=== PATIENT | male | born 1965 | race American Indian/Alaskan Native ===

== ENCOUNTER 2017-05-06 17:59 | Inpatient (IN) | payer MEDICARE, MEDICAID, OTHER ==
[~2017-05-06] VITALS: Ht 180.3 cm; Wt 84.6 kg
[~2017-05-06 17:59] MED LIST: ATOR20TA66 PO; ENAL20TA75 PO; ERGO500014 PO; GABA600T2 PO; HYDR-3973 PO; LANTUS SUBCUT; TRAM50TA2 PO; VANC250C12 PO
[2017-05-06] MEDS ORDERED: nitroGLYCERIN 1gm ointment UD TP ONE (18:40)
[2017-05-06] MEDS ORDERED: furosemide 40mg/4ml inj IV ONE (18:40)
[2017-05-06 19:35] LABS: ALANINE AMINOTRANSFERASE 20 U/L (12-78); ALBUMIN 3.3 G/DL (3.4-5.0); ALBUMIN/GLOBULIN RATIO 0.7 (1.1-1.5); ALKALINE PHOSPHATASE 94 IU/L (46-116); ANION GAP 18 (8-16); ASPARTATE AMINO TRANSFERASE 23 U/L (10-37); BASOPHILS # (AUTO) 0.1 X10'3 (0-0.2); BASOPHILS % (AUTO) 0.4 % (0-1); BLOOD UREA NITROGEN 90 MG/DL (7-18); BUN/CREATININE RATIO 5.4 (5.4-32.0); CALCIUM 8.2 MG/DL (8.5-10.1); CHLORIDE 95 MMOL/L (99-107); EOSINOPHILS # (AUTO) 0.5 X10'3 (0-0.9); EOSINOPHILS % (AUTO) 3.6 % (0-6); GLUCOSE 198 MG/DL (70-104); HEMATOCRIT 33.6 % (42.0-52.0); HEMOGLOBIN 11.6 g/dl (14.0-17.9); LYMPHOCYTES # (AUTO) 1.5 X10'3 (1.1-4.8); LYMPHOCYTES % (AUTO) 11.4 % (21-51); MEAN CORPUSCULAR HEMOGLOBIN 30.7 PG (27.0-31.0); MEAN CORPUSCULAR HGB CONC 34.6 % (33.0-36.5); MEAN CORPUSCULAR VOLUME 88.8 FL (78-98); MEAN PLATELET VOLUME 9.5 FL (7.4-10.4); MONOCYTES # (AUTO) 1.3 X10'3 (0-0.9); MONOCYTES % (AUTO) 9.9 % (2-12); NEUTROPHILS # (AUTO) 10.1 X10'3 (1.8-7.7); NEUTROPHILS % (AUTO) 74.7 % (42-75); PLATELET COUNT 211 X10'3 (140-440); RED BLOOD COUNT 3.78 X10'6 (4.70-6.10); RED CELL DISTRIBUTION WIDTH 14.2 % (11.5-14.5); SODIUM 135 MMOL/L (135-145); TOTAL CARBON DIOXIDE 22.3 MMOL/L (24-32); TOTAL PROTEIN 8.2 G/DL (6.4-8.2); WHITE BLOOD COUNT 13.5 X10'3 (4.5-11.0); eGFR 3 ML/MIN
[2017-05-06 19:43] LABS: POTASSIUM 6.6 MMOL/L (3.5-5.1)
[2017-05-06] MEDS ORDERED: sodium polystyrene sulfonate 15gm/60ml oral suspension PO ONE ×2 (19:45→20:40)
[2017-05-06] MEDS ORDERED: insulin regular, human 10 units/0.1 ml syringe IV ONE (19:45)
[2017-05-06] MEDS ORDERED: calcium chloride 100 MG/1 ML inj IV ONE (19:45)
[2017-05-06] MEDS ORDERED: NORMAL SALINE IV ONE (19:50)
[2017-05-06] MEDS ORDERED: CALCIUM CHLORIDE IV ONE (19:50)
[2017-05-06] MEDS ORDERED: morphine 2 MG/ML inj. syringe IV PRN (20:40)
[2017-05-06] MEDS ORDERED: acetaminophen 325mg tablet PO PRN (20:40)
[2017-05-06] MEDS ORDERED: non-formulary drug (Gabapentin 1 TABLET) PO SCH (21:00)
[2017-05-06] MEDS: gabapentin 300mg capsule PO SCH (21:53)
[2017-05-06] MEDS: insulin glargine (Lantus) pen - multi-dose SQ SCH (22:52)
[2017-05-06 23:45] VITALS: BP 149/77
[2017-05-06 23:48] LABS: ALBUMIN 3.5 G/DL (3.4-5.0); ANION GAP 17 (8-16); BLOOD UREA NITROGEN 93 MG/DL (7-18); BUN/CREATININE RATIO 5.5 (5.4-32.0); CALCIUM 9.5 MG/DL (8.5-10.1); CHLORIDE 95 MMOL/L (99-107); GLUCOSE 136 MG/DL (70-104); SODIUM 137 MMOL/L (135-145); TOTAL CARBON DIOXIDE 24.8 MMOL/L (24-32); eGFR 3 ML/MIN
[2017-05-06 23:55] LABS: POTASSIUM 5.7 MMOL/L (3.5-5.1)
[2017-05-07] VITALS (7 sets, daily range): BP systolic 124–159; BP diastolic 62–80
[2017-05-07] MEDS: HYDROcodone/acetaminophen 5mg/325mg tablet PO PRN (00:52)
[2017-05-07] MEDS ORDERED: traMADol 50MG tablet PO SCH (02:00)
[2017-05-07 05:44] LABS: BASOPHILS # (AUTO) 0.1 X10'3 (0-0.2); BASOPHILS % (AUTO) 0.6 % (0-1); EOSINOPHILS # (AUTO) 0.7 X10'3 (0-0.9); EOSINOPHILS % (AUTO) 4.2 % (0-6); HEMATOCRIT 33.3 % (42.0-52.0); HEMOGLOBIN 11.5 g/dl (14.0-17.9); LYMPHOCYTES # (AUTO) 2.6 X10'3 (1.1-4.8); LYMPHOCYTES % (AUTO) 16.6 % (21-51); MEAN CORPUSCULAR HEMOGLOBIN 30.8 PG (27.0-31.0); MEAN CORPUSCULAR HGB CONC 34.5 % (33.0-36.5); MEAN CORPUSCULAR VOLUME 89.3 FL (78-98); MEAN PLATELET VOLUME 9.4 FL (7.4-10.4); MONOCYTES # (AUTO) 1.4 X10'3 (0-0.9); MONOCYTES % (AUTO) 8.7 % (2-12); NEUTROPHILS # (AUTO) 10.9 X10'3 (1.8-7.7); NEUTROPHILS % (AUTO) 69.9 % (42-75); PLATELET COUNT 229 X10'3 (140-440); RED BLOOD COUNT 3.73 X10'6 (4.70-6.10); WHITE BLOOD COUNT 15.6 X10'3 (4.5-11.0)
[2017-05-07 06:19] LABS: ALANINE AMINOTRANSFERASE 19 U/L (12-78); ALBUMIN/GLOBULIN RATIO 0.6 (1.1-1.5); ALKALINE PHOSPHATASE 88 IU/L (46-116); ANION GAP 19 (8-16); ASPARTATE AMINO TRANSFERASE 19 U/L (10-37); BILIRUBIN,TOTAL 1.1 MG/DL (0.1-1.0); BLOOD UREA NITROGEN 92 MG/DL (7-18); BUN/CREATININE RATIO 5.2 (5.4-32.0); CALCIUM 8.3 MG/DL (8.5-10.1); CHLORIDE 97 MMOL/L (99-107); GLUCOSE 80 MG/DL (70-104); MAGNESIUM 2.7 MG/DL (1.5-2.4); PHOSPHORUS 7.4 MG/DL (2.3-4.5); POTASSIUM 5.7 MMOL/L (3.5-5.1); SODIUM 139 MMOL/L (135-145); TOTAL CARBON DIOXIDE 22.8 MMOL/L (24-32); TOTAL PROTEIN 7.7 G/DL (6.4-8.2); eGFR 3 ML/MIN
[2017-05-07] MEDS: atorvastatin 20mg tablet PO SCH (07:26)
[2017-05-07] MEDS: gabapentin 300mg capsule PO SCH ×3 (07:26→21:21)
[2017-05-07] MEDS: heparin, porcine 5000 units/ml vial SQ SCH ×2 (07:27→19:27)
[2017-05-07] MEDS: HYDROcodone/acetaminophen 10/325mg tab PO SCH ×2 (07:27→19:26)
[2017-05-07] MEDS ORDERED: ENALAPRIL MALEATE PO SCH (08:00)
[2017-05-07] MEDS ORDERED: heparin 1,000unit/ml 10ml vial 10 ML IV ONE (08:36)
[2017-05-07] MEDS ORDERED: epoetin 20,000 units/ml inj IV ONE (08:40)
[2017-05-07] MEDS ORDERED: albumin (human) 25% 100ml IV 100 ML IV PRN (08:40)
[2017-05-07] MEDS ORDERED: mannitol 20% (100GM) 500ml IV soln IV ONE (08:40)
[2017-05-07] MEDS ORDERED: heparin 1,000 units/ml 10ml inj IV ONE (08:40)
[2017-05-07] MEDS: lisinopril 20mg tablet PO SCH (14:43)
[2017-05-07] MEDS: insulin glargine (Lantus) pen - multi-dose SQ SCH (21:34)
[2017-05-08 02:00] VITALS: BP 95/53
[2017-05-08 05:09] LABS: BASOPHILS % (AUTO) 0.2 % (0-1); EOSINOPHILS # (AUTO) 0.5 X10'3 (0-0.9); EOSINOPHILS % (AUTO) 4.1 % (0-6); HEMATOCRIT 32.5 % (42.0-52.0); HEMOGLOBIN 11.1 g/dl (14.0-17.9); LYMPHOCYTES # (AUTO) 1.4 X10'3 (1.1-4.8); LYMPHOCYTES % (AUTO) 10.3 % (21-51); MEAN CORPUSCULAR HEMOGLOBIN 30.6 PG (27.0-31.0); MEAN CORPUSCULAR HGB CONC 34.1 % (33.0-36.5); MEAN CORPUSCULAR VOLUME 89.7 FL (78-98); MEAN PLATELET VOLUME 9.7 FL (7.4-10.4); MONOCYTES # (AUTO) 1.3 X10'3 (0-0.9); MONOCYTES % (AUTO) 9.5 % (2-12); NEUTROPHILS % (AUTO) 75.9 % (42-75); PLATELET COUNT 225 X10'3 (140-440); RED BLOOD COUNT 3.62 X10'6 (4.70-6.10); RED CELL DISTRIBUTION WIDTH 14.7 % (11.5-14.5); WHITE BLOOD COUNT 13.2 X10'3 (4.5-11.0)
[2017-05-08 05:44] LABS: ALANINE AMINOTRANSFERASE 12 U/L (12-78); ALBUMIN 2.6 G/DL (3.4-5.0); ALBUMIN/GLOBULIN RATIO 0.5 (1.1-1.5); ALKALINE PHOSPHATASE 112 IU/L (46-116); ANION GAP 14 (8-16); ASPARTATE AMINO TRANSFERASE 14 U/L (10-37); BILIRUBIN,TOTAL 0.7 MG/DL (0.1-1.0); BLOOD UREA NITROGEN 53 MG/DL (7-18); BUN/CREATININE RATIO 4.4 (5.4-32.0); CALCIUM 8.1 MG/DL (8.5-10.1); CHLORIDE 97 MMOL/L (99-107); GLUCOSE 162 MG/DL (70-104); MAGNESIUM 2.2 MG/DL (1.5-2.4); PHOSPHORUS 6.3 MG/DL (2.3-4.5); POTASSIUM 4.4 MMOL/L (3.5-5.1); SODIUM 138 MMOL/L (135-145); TOTAL CARBON DIOXIDE 27.4 MMOL/L (24-32); TOTAL PROTEIN 7.6 G/DL (6.4-8.2); eGFR 4 ML/MIN
[2017-05-08 06:00] VITALS: BP 130/68
[2017-05-08] MEDS: lisinopril 20mg tablet PO SCH (08:26)
[2017-05-08] MEDS: atorvastatin 20mg tablet PO SCH (08:26)
[2017-05-08] MEDS: heparin, porcine 5000 units/ml vial SQ SCH ×2 (08:26→20:49)
[2017-05-08] MEDS: gabapentin 300mg capsule PO SCH ×3 (08:26→20:47)
[2017-05-08] MEDS: HYDROcodone/acetaminophen 10/325mg tab PO SCH ×2 (08:29→20:49)
[2017-05-08 11:00] VITALS: BP 135/58
[2017-05-08] MEDS ORDERED: ipratropium/albuterol 3ml nebule NEB PRN (14:10)
[2017-05-08 15:00] VITALS: BP 152/65
[2017-05-08] MEDS: traMADol 50MG tablet PO PRN (15:42)
[2017-05-08] MEDS: ipratropium/albuterol 3ml nebule NEB SCH ×2 (15:54→20:45)
[2017-05-08] MEDS: cefTRIAXone 1g/NS 100ml IVPB 100 ML IV SCH (17:35)
[2017-05-08 18:00] VITALS: BP 164/77
[2017-05-08 22:00] VITALS: BP 155/70
[2017-05-08] MEDS: insulin glargine (Lantus) pen - multi-dose SQ SCH (22:10)
[2017-05-08] MEDS: morphine 2 MG/ML inj. syringe IV PRN (22:29)
[2017-05-09 02:00] VITALS: BP 160/81
[2017-05-09] MEDS: ipratropium/albuterol 3ml nebule NEB SCH ×4 (02:38→20:43)
[2017-05-09 06:00] VITALS: BP 152/82
[2017-05-09 06:35] LABS: BASOPHILS % (AUTO) 0.1 % (0-1); EOSINOPHILS # (AUTO) 0.7 X10'3 (0-0.9); EOSINOPHILS % (AUTO) 5.6 % (0-6); HEMATOCRIT 31.5 % (42.0-52.0); HEMOGLOBIN 10.9 g/dl (14.0-17.9); MEAN CORPUSCULAR HEMOGLOBIN 30.9 PG (27.0-31.0); MEAN CORPUSCULAR HGB CONC 34.7 % (33.0-36.5); MEAN CORPUSCULAR VOLUME 89.2 FL (78-98); MEAN PLATELET VOLUME 9.7 FL (7.4-10.4); MONOCYTES % (AUTO) 8.2 % (2-12); NEUTROPHILS # (AUTO) 9.7 X10'3 (1.8-7.7); NEUTROPHILS % (AUTO) 78.1 % (42-75); PLATELET COUNT 242 X10'3 (140-440); RED BLOOD COUNT 3.53 X10'6 (4.70-6.10); RED CELL DISTRIBUTION WIDTH 14.4 % (11.5-14.5); WHITE BLOOD COUNT 12.4 X10'3 (4.5-11.0)
[2017-05-09 07:15] LABS: ALANINE AMINOTRANSFERASE 15 U/L (12-78); ALBUMIN 2.5 G/DL (3.4-5.0); ALBUMIN/GLOBULIN RATIO 0.5 (1.1-1.5); ALKALINE PHOSPHATASE 105 IU/L (46-116); ANION GAP 18 (8-16); ASPARTATE AMINO TRANSFERASE 15 U/L (10-37); BILIRUBIN,TOTAL 0.7 MG/DL (0.1-1.0); BLOOD UREA NITROGEN 69 MG/DL (7-18); BUN/CREATININE RATIO 4.9 (5.4-32.0); CHLORIDE 94 MMOL/L (99-107); GLUCOSE 95 MG/DL (70-104); MAGNESIUM 2.2 MG/DL (1.5-2.4); POTASSIUM 4.1 MMOL/L (3.5-5.1); SODIUM 136 MMOL/L (135-145); TOTAL CARBON DIOXIDE 24.1 MMOL/L (24-32); TOTAL PROTEIN 7.8 G/DL (6.4-8.2); eGFR 4 ML/MIN
[2017-05-09] MEDS: gabapentin 300mg capsule PO SCH ×2 (08:17→13:49)
[2017-05-09] MEDS: atorvastatin 20mg tablet PO SCH (08:17)
[2017-05-09] MEDS: heparin, porcine 5000 units/ml vial SQ SCH ×2 (08:17→19:27)
[2017-05-09] MEDS: HYDROcodone/acetaminophen 10/325mg tab PO SCH ×2 (08:19→19:26)
[2017-05-09] MEDS: cefTRIAXone 1g/NS 100ml IVPB 100 ML IV SCH (08:20)
[2017-05-09 11:00] VITALS: BP 145/63
[2017-05-09 15:00] VITALS: BP 160/78
[2017-05-09] MEDS: morphine 2 MG/ML inj. syringe IV PRN (16:27)
[2017-05-09] MEDS: lactobacillus rhamnosus 10,000 MMU CELLS/CAPSULE PO SCH (16:33)
[2017-05-09 18:00] VITALS: BP 177/79
[2017-05-09] MEDS: insulin glargine (Lantus) pen - multi-dose SQ SCH (21:00)
[2017-05-09] MEDS: racepinephrine 11.25mg/0.5ml nebule IH PRN (21:14)
[2017-05-09 22:00] VITALS: BP 179/86
[2017-05-10] VITALS (13 sets, daily range): BP systolic 116–185; BP diastolic 61–91
[2017-05-10] MEDS: racepinephrine 11.25mg/0.5ml nebule IH PRN (00:52)
[2017-05-10 01:31] LABS: ABG BASE EXCESS -4.4 mmol/L (-2.0-3.0); ABG OXYGEN SATURATION 88.7 % (95-98); ABG PCO2 (T) 41.1 mmHg (35.0-48.0); ABG PO2 (T) 63.1 mmHg (83-108); ALLEN'S TEST Positive; FCOHb 0.3 % (0.5-1.5); FLOW 5 L/min; FMetHb 0.2 % (0.3-1.12); FO2Hb 88.3 % (94-100); PATIENT TEMPERATURE 37.7; TOTAL HEMOGLOBIN 11.4 G/dl (14.0-18.0)
[2017-05-10] MEDS: ipratropium/albuterol 3ml nebule NEB SCH ×4 (03:54→20:37)
[2017-05-10] MEDS: ondansetron/PF 4mg/2ml inj IV PRN ×2 (03:54→09:41)
[2017-05-10 07:08] LABS: BASOPHILS % (AUTO) 0.2 % (0-1); EOSINOPHILS # (AUTO) 0.5 X10'3 (0-0.9); EOSINOPHILS % (AUTO) 4.3 % (0-6); HEMATOCRIT 32.2 % (42.0-52.0); HEMOGLOBIN 11.2 g/dl (14.0-17.9); LYMPHOCYTES % (AUTO) 8.6 % (21-51); MEAN CORPUSCULAR HEMOGLOBIN 30.9 PG (27.0-31.0); MEAN CORPUSCULAR HGB CONC 34.8 % (33.0-36.5); MEAN CORPUSCULAR VOLUME 88.7 FL (78-98); MEAN PLATELET VOLUME 9.2 FL (7.4-10.4); MONOCYTES # (AUTO) 1.1 X10'3 (0-0.9); MONOCYTES % (AUTO) 8.9 % (2-12); NEUTROPHILS # (AUTO) 9.2 X10'3 (1.8-7.7); PLATELET COUNT 281 X10'3 (140-440); RED BLOOD COUNT 3.63 X10'6 (4.70-6.10); WHITE BLOOD COUNT 11.8 X10'3 (4.5-11.0)
[2017-05-10 07:45] LABS: ALANINE AMINOTRANSFERASE 15 U/L (12-78); ALBUMIN 2.4 G/DL (3.4-5.0); ALBUMIN/GLOBULIN RATIO 0.4 (1.1-1.5); ALKALINE PHOSPHATASE 116 IU/L (46-116); ANION GAP 20 (8-16); ASPARTATE AMINO TRANSFERASE 22 U/L (10-37); BILIRUBIN,TOTAL 0.7 MG/DL (0.1-1.0); BLOOD UREA NITROGEN 86 MG/DL (7-18); BUN/CREATININE RATIO 5.5 (5.4-32.0); CALCIUM 8.1 MG/DL (8.5-10.1); CHLORIDE 91 MMOL/L (99-107); GLUCOSE 101 MG/DL (70-104); MAGNESIUM 2.3 MG/DL (1.5-2.4); PHOSPHORUS 8.5 MG/DL (2.3-4.5); SODIUM 135 MMOL/L (135-145); TOTAL CARBON DIOXIDE 23.8 MMOL/L (24-32); TOTAL PROTEIN 8.1 G/DL (6.4-8.2); eGFR 3 ML/MIN
[2017-05-10 07:46] LABS: ABG BASE EXCESS -2.4 mmol/L (-2.0-3.0); ABG HCO3 23.4 mmol/L (22.0-26.0); ABG OXYGEN SATURATION 93.3 % (95-98); ABG PCO2 (T) 44.4 mmHg (35.0-48.0); ABG PH (T) 7.339 (7.350-7.450); ABG PO2 (T) 74.1 mmHg (83-108); ALLEN'S TEST Positive; FMetHb 0.1 % (0.3-1.12); FO2Hb 93.2 % (94-100); MINUTE VOLUME 25 L/min; RESPIRATORY RATE 14 b/min; RESPIRATORY RATE (OBSERVED) 28 b/min; TOTAL HEMOGLOBIN 11.6 G/dl (14.0-18.0)
[2017-05-10 07:49] LABS: POTASSIUM 6.2 MMOL/L (3.5-5.1)
[2017-05-10] MEDS: HYDROcodone/acetaminophen 10/325mg tab PO SCH ×2 (08:00→19:19)
[2017-05-10] MEDS ORDERED: epoetin 20,000 units/ml inj IV ONE (08:00)
[2017-05-10] MEDS ORDERED: gabapentin 100mg capsule PO SCH (08:00)
[2017-05-10] MEDS ORDERED: LIDOcaine 1% (10mg/ml) 2ml vial SQ ONE (08:00)
[2017-05-10] MEDS ORDERED: normal saline 1000ml 250 ML IV PRN (08:00)
[2017-05-10] MEDS: cefTRIAXone 1g/NS 100ml IVPB 100 ML IV SCH (08:00)
[2017-05-10] MEDS: heparin, porcine 5000 units/ml vial SQ SCH ×2 (08:00→19:19)
[2017-05-10] MEDS ORDERED: heparin 1,000 units/ml 10ml inj IV ONE (08:00)
[2017-05-10] MEDS ORDERED: CefTRIAXone/D5W-Rocephin 1gm 50 ML IV ONE (09:27)
[2017-05-10] MEDS: atorvastatin 20mg tablet PO SCH (09:35)
[2017-05-10] MEDS: lactobacillus rhamnosus 10,000 MMU CELLS/CAPSULE PO SCH ×2 (09:36→17:30)
[2017-05-10] MEDS: HYDROcodone/acetaminophen 5mg/325mg tablet PO PRN (15:19)
[2017-05-10] MEDS: insulin glargine (Lantus) pen - multi-dose SQ SCH (21:00)
[2017-05-11] VITALS (9 sets, daily range): BP systolic 112–141; BP diastolic 54–73
[2017-05-11] MEDS: ipratropium/albuterol 3ml nebule NEB SCH ×4 (02:55→20:36)
[2017-05-11 06:18] LABS: BASOPHILS % (AUTO) 0.5 % (0-1); EOSINOPHILS # (AUTO) 0.9 X10'3 (0-0.9); EOSINOPHILS % (AUTO) 9.7 % (0-6); HEMATOCRIT 28.6 % (42.0-52.0); HEMOGLOBIN 10.1 g/dl (14.0-17.9); LYMPHOCYTES # (AUTO) 1.2 X10'3 (1.1-4.8); MEAN CORPUSCULAR HEMOGLOBIN 31.3 PG (27.0-31.0); MEAN CORPUSCULAR HGB CONC 35.3 % (33.0-36.5); MEAN CORPUSCULAR VOLUME 88.5 FL (78-98); MEAN PLATELET VOLUME 8.9 FL (7.4-10.4); MONOCYTES # (AUTO) 0.9 X10'3 (0-0.9); MONOCYTES % (AUTO) 9.8 % (2-12); NEUTROPHILS # (AUTO) 6.3 X10'3 (1.8-7.7); PLATELET COUNT 290 X10'3 (140-440); RED BLOOD COUNT 3.23 X10'6 (4.70-6.10); RED CELL DISTRIBUTION WIDTH 13.9 % (11.5-14.5); WHITE BLOOD COUNT 9.4 X10'3 (4.5-11.0)
[2017-05-11 06:42] LABS: ALBUMIN 2.1 G/DL (3.4-5.0); ALBUMIN/GLOBULIN RATIO 0.4 (1.1-1.5); ALKALINE PHOSPHATASE 111 IU/L (46-116); ANION GAP 14 (8-16); ASPARTATE AMINO TRANSFERASE 17 U/L (10-37); BILIRUBIN,TOTAL 0.5 MG/DL (0.1-1.0); BLOOD UREA NITROGEN 47 MG/DL (7-18); BUN/CREATININE RATIO 5.2 (5.4-32.0); CALCIUM 8.4 MG/DL (8.5-10.1); CHLORIDE 96 MMOL/L (99-107); GLUCOSE 162 MG/DL (70-104); MAGNESIUM 2.3 MG/DL (1.5-2.4); PHOSPHORUS 7.3 MG/DL (2.3-4.5); POTASSIUM 4.7 MMOL/L (3.5-5.1); SODIUM 135 MMOL/L (135-145); TOTAL CARBON DIOXIDE 25.1 MMOL/L (24-32); TOTAL PROTEIN 7.4 G/DL (6.4-8.2); eGFR 6 ML/MIN
[2017-05-11 06:44] LABS: ALANINE AMINOTRANSFERASE < 6 U/L (12-78)
[2017-05-11] MEDS: gabapentin 100mg capsule PO SCH (08:02)
[2017-05-11] MEDS: atorvastatin 20mg tablet PO SCH (08:02)
[2017-05-11] MEDS: lactobacillus rhamnosus 10,000 MMU CELLS/CAPSULE PO SCH ×2 (08:02→17:15)
[2017-05-11] MEDS: HYDROcodone/acetaminophen 10/325mg tab PO SCH ×2 (08:03→20:18)
[2017-05-11] MEDS: CefTRIAXone/D5W-Rocephin 1gm 50 ML IV SCH (08:03)
[2017-05-11] MEDS: heparin, porcine 5000 units/ml vial SQ SCH ×2 (08:03→20:19)
[2017-05-11] MEDS ORDERED: heparin 1,000unit/ml 10ml vial 10 ML IV ONE (08:54)
[2017-05-11] MEDS ORDERED: albumin (human) 25% 100ml IV 100 ML IV PRN (08:55)
[2017-05-11] MEDS ORDERED: heparin 1,000 units/ml 10ml inj IV ONE (08:55)
[2017-05-11] MEDS ORDERED: epoetin 20,000 units/ml inj IV ONE (08:55)
[2017-05-11] MEDS: HYDROcodone/acetaminophen 5mg/325mg tablet PO PRN (13:12)
[2017-05-11] MEDS: traMADol 50MG tablet PO PRN (15:41)
[2017-05-11] MEDS ORDERED: morphine 5 MG/ML injection IV PRN ×2 (16:16)
[2017-05-11] MEDS ORDERED: insulin glargine (Lantus) pen - multi-dose SQ ONE (21:00)
[2017-05-12 02:00] VITALS: BP 166/77
[2017-05-12] MEDS: ipratropium/albuterol 3ml nebule NEB SCH ×4 (02:49→20:06)
[2017-05-12] MEDS: traMADol 50MG tablet PO PRN (04:11)
[2017-05-12 06:00] VITALS: BP 137/72
[2017-05-12] MEDS: CefTRIAXone/D5W-Rocephin 1gm 50 ML IV SCH (07:10)
[2017-05-12] MEDS: heparin, porcine 5000 units/ml vial SQ SCH ×2 (07:12→19:43)
[2017-05-12] MEDS: gabapentin 100mg capsule PO SCH (07:12)
[2017-05-12] MEDS: lactobacillus rhamnosus 10,000 MMU CELLS/CAPSULE PO SCH ×2 (07:12→16:58)
[2017-05-12] MEDS: HYDROcodone/acetaminophen 10/325mg tab PO SCH ×2 (07:12→19:44)
[2017-05-12] MEDS: atorvastatin 20mg tablet PO SCH (07:12)
[2017-05-12] MEDS ORDERED: heparin 1,000unit/ml 10ml vial 10 ML IV ONE (07:13)
[2017-05-12] MEDS ORDERED: heparin 1,000 units/ml 10ml inj IV ONE (07:15)
[2017-05-12] MEDS ORDERED: albumin (human) 25% 100ml IV 100 ML IV PRN (07:15)
[2017-05-12] MEDS ORDERED: epoetin 20,000 units/ml inj IV ONE (07:15)
[2017-05-12] MEDS: insulin glargine (Lantus) pen - multi-dose SQ SCH ×2 (07:20→19:48)
[2017-05-12] MEDS ORDERED: insulin glargine (Lantus) pen - multi-dose SQ ONE (08:00)
[2017-05-12 09:26] LABS: BASOPHILS # (AUTO) 0.1 X10'3 (0-0.2); BASOPHILS % (AUTO) 0.6 % (0-1); EOSINOPHILS # (AUTO) 1.3 X10'3 (0-0.9); HEMATOCRIT 33.6 % (42.0-52.0); HEMOGLOBIN 11.4 g/dl (14.0-17.9); LYMPHOCYTES # (AUTO) 1.9 X10'3 (1.1-4.8); LYMPHOCYTES % (AUTO) 17.5 % (21-51); MEAN CORPUSCULAR HEMOGLOBIN 30.8 PG (27.0-31.0); MEAN CORPUSCULAR VOLUME 90.6 FL (78-98); MEAN PLATELET VOLUME 8.4 FL (7.4-10.4); MONOCYTES % (AUTO) 9.3 % (2-12); NEUTROPHILS # (AUTO) 6.5 X10'3 (1.8-7.7); NEUTROPHILS % (AUTO) 60.6 % (42-75); PLATELET COUNT 314 X10'3 (140-440); RED BLOOD COUNT 3.71 X10'6 (4.70-6.10); RED CELL DISTRIBUTION WIDTH 13.7 % (11.5-14.5); WHITE BLOOD COUNT 10.7 X10'3 (4.5-11.0)
[2017-05-12 11:01] VITALS: BP 155/81
[2017-05-12 15:00] VITALS: BP 120/75
[2017-05-12 18:00] VITALS: BP 140/77
[2017-05-12 22:00] VITALS: BP 135/72
[2017-05-13 02:00] VITALS: BP 149/75
[2017-05-13] MEDS: ipratropium/albuterol 3ml nebule NEB SCH ×4 (02:39→20:41)
[2017-05-13 06:00] VITALS: BP 166/76
[2017-05-13] MEDS: atorvastatin 20mg tablet PO SCH (07:18)
[2017-05-13] MEDS: gabapentin 100mg capsule PO SCH (07:18)
[2017-05-13] MEDS: lactobacillus rhamnosus 10,000 MMU CELLS/CAPSULE PO SCH ×2 (07:18→16:44)
[2017-05-13] MEDS: HYDROcodone/acetaminophen 10/325mg tab PO SCH ×2 (07:20→20:48)
[2017-05-13] MEDS: heparin, porcine 5000 units/ml vial SQ SCH ×2 (07:21→20:44)
[2017-05-13] MEDS: CefTRIAXone/D5W-Rocephin 1gm 50 ML IV SCH (07:22)
[2017-05-13] MEDS: insulin glargine (Lantus) pen - multi-dose SQ SCH ×2 (08:37→20:43)
[2017-05-13 11:00] VITALS: BP 143/78
[2017-05-13 15:00] VITALS: BP 127/64
[2017-05-13] MEDS: HYDROcodone/acetaminophen 5mg/325mg tablet PO PRN (16:40)
[2017-05-13 19:00] VITALS: BP 156/77
[2017-05-13] MEDS: methylPREDNISolone sod succ 125mg/2ml vial IV SCH (20:43)
[2017-05-13 23:00] VITALS: BP 163/74
[2017-05-14] MEDS: HYDROcodone/acetaminophen 5mg/325mg tablet PO PRN ×3 (01:30→17:31)
[2017-05-14] MEDS: methylPREDNISolone sod succ 125mg/2ml vial IV SCH ×4 (01:30→19:56)
[2017-05-14] MEDS: ipratropium/albuterol 3ml nebule NEB SCH ×3 (02:43→15:32)
[2017-05-14 03:00] VITALS: BP 156/70
[2017-05-14 06:00] VITALS: BP 147/67
[2017-05-14] MEDS ORDERED: dextrose ORAL solution 15 GM/59 ML bottle PO PRN ×2 (07:25)
[2017-05-14] MEDS ORDERED: glucagon, human recombinant 1mg kit SUBCUT PRN (07:25)
[2017-05-14] MEDS ORDERED: dextrose 50%-water 50ml dispensing syringe IV PRN ×2 (07:25)
[2017-05-14] MEDS ORDERED: normal saline 1000ml 250 ML IV PRN (07:52)
[2017-05-14] MEDS ORDERED: LIDOcaine 1% (10mg/ml) 2ml vial SQ ONE (07:55)
[2017-05-14] MEDS ORDERED: heparin 1,000 units/ml 10ml inj IV ONE (07:55)
[2017-05-14] MEDS: gabapentin 100mg capsule PO SCH (08:51)
[2017-05-14] MEDS: CefTRIAXone/D5W-Rocephin 1gm 50 ML IV SCH (08:52)
[2017-05-14] MEDS: HYDROcodone/acetaminophen 10/325mg tab PO SCH ×2 (08:52→19:54)
[2017-05-14] MEDS: heparin, porcine 5000 units/ml vial SQ SCH ×2 (08:53→19:53)
[2017-05-14] MEDS: lactobacillus rhamnosus 10,000 MMU CELLS/CAPSULE PO SCH ×2 (08:53→17:30)
[2017-05-14] MEDS: atorvastatin 20mg tablet PO SCH (08:53)
[2017-05-14] MEDS: insulin glargine (Lantus) pen - multi-dose SQ SCH ×2 (09:13→19:56)
[2017-05-14] MEDS: insulin Lispro (HumaLOG) vial - multi-dose SQ SCH ×3 (09:16→18:06)
[2017-05-14 11:00] VITALS: BP 140/72
[2017-05-14 15:00] VITALS: BP 142/72
[2017-05-14] MEDS ORDERED: FOLI1TAB16 PO (15:14)
[2017-05-14] MEDS ORDERED: VIT1TABL50 PO (15:14)
== END 2017-05-14 20:13 | disposition home or self-care (01) | DRG 189 ==
LOC: ER 18:00 → ED HOLD 20:37 → EDBEDREQ 22:56 → PCU 3S 23:45
PROVIDERS: ADMIT Internal Medicine Critical Care Medicine; ATTEND Internal Medicine Critical Care Medicine
PROC: 5A1D70Z Performance of Urinary Filtration, Intermittent, Less than 6 Hours Per Day (ICD-10-PCS; 2017-05-07)
PROC: 5A09457 Assistance with Respiratory Ventilation, 24-96 Consecutive Hours, Continuous Positive Airway Pressure (ICD-10-PCS; principal; 2017-05-10)
PROC: 5A1D70Z Performance of Urinary Filtration, Intermittent, Less than 6 Hours Per Day (ICD-10-PCS; 2017-05-10)
PROC: 5A1D70Z Performance of Urinary Filtration, Intermittent, Less than 6 Hours Per Day (ICD-10-PCS; 2017-05-11)
PROC: 5A1D70Z Performance of Urinary Filtration, Intermittent, Less than 6 Hours Per Day (ICD-10-PCS; 2017-05-12)
PROC: 5A1D70Z Performance of Urinary Filtration, Intermittent, Less than 6 Hours Per Day (ICD-10-PCS; 2017-05-14)
DX: J81.0 Acute pulmonary edema (principal); J96.20 Acute and chronic respiratory failure, unspecified whether with hypoxia or hypercapnia; E11.22 Type 2 diabetes mellitus with diabetic chronic kidney disease; N18.6 End stage renal disease; I12.0 Hypertensive chronic kidney disease with stage 5 chronic kidney disease or end stage renal disease; E87.70 Fluid overload, unspecified; R59.1 Generalized enlarged lymph nodes; R91.8 Other nonspecific abnormal finding of lung field; E87.5 Hyperkalemia; Z60.2 Problems related to living alone; Z79.899 Other long term (current) drug therapy; Z99.2 Dependence on renal dialysis; Z99.81 Dependence on supplemental oxygen; Z91.15 Patient's noncompliance with renal dialysis; Z83.3 Family history of diabetes mellitus
CPT/HCPCS: 36415; 36600; 71045; 71250; 80048; 80053; 82803; 82948; 83036; 83605; 83735; 84100; 85018; 85025; 87070; 93005; 94640; 94660; 94760; 96374; 96375; 97116; 97161; 97530; 99291; A6402; G0257; J0696; J0885; J1644; J1815; J1940; J2270; J2405; J2930; J7030; J7040

== ENCOUNTER 2017-07-28 17:40 | Emergency (ER) | payer MEDICARE, MEDICAID, OTHER ==
[~2017-07-28] VITALS: Ht 167.6 cm; Wt 89.0 kg
[~2017-07-28 17:40] MED LIST changes: -ERGO500014 PO; +FOLI1TAB16 PO; -VANC250C12 PO; +VIT1TABL50 PO
[2017-07-28 18:52] LABS: ALANINE AMINOTRANSFERASE 17 U/L (12-78); ALBUMIN 3.5 G/DL (3.4-5.0); ALBUMIN/GLOBULIN RATIO 0.7 (1.1-1.5); ALKALINE PHOSPHATASE 112 IU/L (46-116); ANION GAP 10 (8-16); ASPARTATE AMINO TRANSFERASE 18 U/L (10-37); BILIRUBIN,TOTAL 0.5 MG/DL (0.1-1.0); BLOOD UREA NITROGEN 25 MG/DL (7-18); BUN/CREATININE RATIO 4.3 (5.4-32.0); CALCIUM 8.6 MG/DL (8.5-10.1); CHLORIDE 99 MMOL/L (99-107); CREATININE 5.81 MG/DL (0.60-1.10); GLUCOSE 259 MG/DL (70-104); SODIUM 139 MMOL/L (135-145); TOTAL CARBON DIOXIDE 29.6 MMOL/L (24-32); TOTAL PROTEIN 8.5 G/DL (6.4-8.2); eGFR 10 ML/MIN
[2017-07-28 18:54] LABS: POTASSIUM 4.2 MMOL/L (3.5-5.1)
[2017-07-28 19:29] LABS: BASOPHILS # (AUTO) 0.1 X10'3 (0-0.2); BASOPHILS % (AUTO) 0.6 % (0-1); EOSINOPHILS # (AUTO) 1.6 X10'3 (0-0.9); EOSINOPHILS % (AUTO) 12.2 % (0-6); HEMATOCRIT 36.5 % (42.0-52.0); HEMOGLOBIN 12.2 g/dl (14.0-17.9); LYMPHOCYTES % (AUTO) 15.2 % (21-51); MEAN CORPUSCULAR HEMOGLOBIN 29.4 PG (27.0-31.0); MEAN CORPUSCULAR HGB CONC 33.6 % (33.0-36.5); MEAN CORPUSCULAR VOLUME 87.7 FL (78-98); MEAN PLATELET VOLUME 8.9 FL (7.4-10.4); MONOCYTES # (AUTO) 0.8 X10'3 (0-0.9); MONOCYTES % (AUTO) 5.8 % (2-12); NEUTROPHILS # (AUTO) 8.7 X10'3 (1.8-7.7); NEUTROPHILS % (AUTO) 66.2 % (42-75); PLATELET COUNT 276 X10'3 (140-440); RED BLOOD COUNT 4.16 X10'6 (4.70-6.10); RED CELL DISTRIBUTION WIDTH 15.7 % (11.5-14.5); WHITE BLOOD COUNT 13.2 X10'3 (4.5-11.0)
[2017-07-28 19:38] LABS: PARTIAL THROMBOPLASTIN TIME 27 SECONDS (22-32); PROTHROMBIN TIME 10.7 SECONDS (9.0-12.0)
[2017-07-28 19:43] VITALS: BP 146/76
== END 2017-07-28 22:48 | disposition left against medical advice (07) ==
LOC: ER 17:41
DX: R06.02 Shortness of breath (principal); Z53.21 Procedure and treatment not carried out due to patient leaving prior to being seen by health care provider
CPT/HCPCS: 36415; 71045; 80053; 84484; 85025; 85610; 85730; 93005

== ENCOUNTER 2017-11-22 20:15 | Emergency (ER) | payer MEDICARE, MEDICAID, OTHER ==
[~2017-11-22] VITALS: Ht 167.6 cm; Wt 88.6 kg
[2017-11-22] MEDS ORDERED: ondansetron/PF 4mg/2ml inj IV ONE (20:45)
[2017-11-22] MEDS ORDERED: morphine 4 MG/ML inj SYRINge IV PRN (20:45)
[2017-11-22 21:23] LABS: BASOPHILS # (AUTO) 0.1 X10'3 (0-0.2); BASOPHILS % (AUTO) 0.6 % (0-1); EOSINOPHILS # (AUTO) 0.3 X10'3 (0-0.9); EOSINOPHILS % (AUTO) 2.8 % (0-6); HEMATOCRIT 38.6 % (42.0-52.0); LYMPHOCYTES # (AUTO) 1.2 X10'3 (1.1-4.8); LYMPHOCYTES % (AUTO) 9.8 % (21-51); MEAN CORPUSCULAR HEMOGLOBIN 30.3 PG (27.0-31.0); MEAN CORPUSCULAR HGB CONC 33.6 % (33.0-36.5); MEAN CORPUSCULAR VOLUME 90.3 FL (78-98); MEAN PLATELET VOLUME 8.4 FL (7.4-10.4); MONOCYTES # (AUTO) 0.4 X10'3 (0-0.9); MONOCYTES % (AUTO) 3.5 % (2-12); NEUTROPHILS # (AUTO) 10.4 X10'3 (1.8-7.7); NEUTROPHILS % (AUTO) 83.3 % (42-75); PLATELET COUNT 422 X10'3 (140-440); RED BLOOD COUNT 4.28 X10'6 (4.70-6.10); RED CELL DISTRIBUTION WIDTH 15.1 % (11.5-14.5); WHITE BLOOD COUNT 12.5 X10'3 (4.5-11.0)
[2017-11-22 21:33] LABS: INR 1.2 INR; PROTHROMBIN TIME 12.2 SECONDS (9.0-12.0)
[2017-11-22 21:37] LABS: ALANINE AMINOTRANSFERASE 14 U/L (12-78); ALBUMIN 3.1 G/DL (3.4-5.0); ALBUMIN/GLOBULIN RATIO 0.5 (1.1-1.5); ALKALINE PHOSPHATASE 66 IU/L (46-116); ANION GAP 16 (8-16); ASPARTATE AMINO TRANSFERASE 13 U/L (10-37); BILIRUBIN,TOTAL 2.4 MG/DL (0.1-1.0); BLOOD UREA NITROGEN 51 MG/DL (7-18); BUN/CREATININE RATIO 3.5 (5.4-32.0); CALCIUM 8.8 MG/DL (8.5-10.1); CHLORIDE 91 MMOL/L (99-107); CREATININE 14.47 MG/DL (0.60-1.10); GLUCOSE 155 MG/DL (70-104); LIPASE 121 U/L (73-393); POTASSIUM 4.8 MMOL/L (3.5-5.1); SODIUM 132 MMOL/L (135-145); TOTAL PROTEIN 8.8 G/DL (6.4-8.2); eGFR 4 ML/MIN
[2017-11-22] MEDS ORDERED: HYDROmorphone 1 mg/ml syringe IV ONE (21:40)
[2017-11-22] MEDS ORDERED: proCHLORperazine 10 MG/2 ml inj IV ONE (21:40)
[2017-11-22 22:16] VITALS: BP 148/72
== END 2017-11-23 00:28 | disposition home or self-care (01) ==
LOC: ER 20:16
DX: R10.84 Generalized abdominal pain (principal); R11.2 Nausea with vomiting, unspecified; R19.7 Diarrhea, unspecified; D72.829 Elevated white blood cell count, unspecified; N18.9 Chronic kidney disease, unspecified; I12.9 Hypertensive chronic kidney disease with stage 1 through stage 4 chronic kidney disease, or unspecified chronic kidney disease; E11.22 Type 2 diabetes mellitus with diabetic chronic kidney disease; Z99.2 Dependence on renal dialysis; Z79.4 Long term (current) use of insulin; Z79.899 Other long term (current) drug therapy
CPT/HCPCS: 36415; 71045; 74176; 80053; 83690; 85025; 85610; 96374; 96375; 99285; A4353; J0780; J1170; J2270; J2405

== ENCOUNTER 2018-03-29 07:41 | Day surgery (SDC) | payer MEDICARE, MEDICAID, OTHER ==
[~2018-03-29] VITALS: Ht 167.6 cm; Wt 84.4 kg
[2018-03-29] MEDS ORDERED: normal saline 1000ml 1,000 ML IV PRN (08:10)
[2018-03-29] MEDS ORDERED: ENAL20TA PO (08:33)
[2018-03-29] MEDS ORDERED: METO-384 PO (08:33)
[2018-03-29] MEDS ORDERED: HYDR25TA4 PO (08:33)
[2018-03-29] MEDS ORDERED: PANT-47 PO (08:33)
[2018-03-29] MEDS ORDERED: HYDR-3686 PO (08:33)
[2018-03-29] MEDS ORDERED: DILT120T3 PO (08:33)
[2018-03-29] MEDS ORDERED: ASPI81TA30 PO (08:33)
[2018-03-29] MEDS ORDERED: PHO667C PO (08:33)
[2018-03-29 09:30] LABS: ALBUMIN 4.2 G/DL (3.4-5.0); ANION GAP 16 (8-16); BLOOD UREA NITROGEN 34 MG/DL (7-18); BUN/CREATININE RATIO 3.6 (5.4-32.0); CALCIUM 9.4 MG/DL (8.5-10.1); CHLORIDE 92 MMOL/L (99-107); CREATININE 9.33 MG/DL (0.60-1.10); GLUCOSE 253 MG/DL (70-104); INR 1.1 INR; POTASSIUM 4.3 MMOL/L (3.5-5.1); PROTHROMBIN TIME 10.7 SECONDS (9.0-12.0); SODIUM 135 MMOL/L (135-145); TOTAL CARBON DIOXIDE 27.3 MMOL/L (24-32); eGFR 6 ML/MIN
[2018-03-29 09:31] LABS: BASOPHILS % (AUTO) 0.4 % (0-1); EOSINOPHILS # (AUTO) 0.4 X10'3 (0-0.9); EOSINOPHILS % (AUTO) 4.1 % (0-6); HEMATOCRIT 54.4 % (42.0-52.0); HEMOGLOBIN 17.9 g/dl (14.0-17.9); LYMPHOCYTES # (AUTO) 1.4 X10'3 (1.1-4.8); LYMPHOCYTES % (AUTO) 15.2 % (21-51); MEAN CORPUSCULAR HEMOGLOBIN 30.3 PG (27.0-31.0); MEAN CORPUSCULAR VOLUME 91.9 FL (78-98); MEAN PLATELET VOLUME 10.7 FL (7.4-10.4); MONOCYTES # (AUTO) 0.6 X10'3 (0-0.9); MONOCYTES % (AUTO) 6.2 % (2-12); NEUTROPHILS # (AUTO) 6.6 X10'3 (1.8-7.7); NEUTROPHILS % (AUTO) 74.1 % (42-75); PLATELET COUNT 184 X10'3 (140-440); RED BLOOD COUNT 5.91 X10'6 (4.70-6.10); RED CELL DISTRIBUTION WIDTH 14.7 % (11.5-14.5); WHITE BLOOD COUNT 8.9 X10'3 (4.5-11.0)
[2018-03-29 09:43] VITALS: BP 135/84
[2018-03-29 10:02] LABS: LARGE PLATELETS FEW; PLATELET ESTIMATE NORMAL
[2018-03-29] MEDS ORDERED: iohexol 300mg/ml 100ml inj. ONE (10:05)
[2018-03-29] MEDS ORDERED: LIDOcaine 1%/PF 5ML 10 MG/ML VIAL ONE (10:05)
[2018-03-29] MEDS ORDERED: midazolam 2 mg/2 ml injection IV PRN (10:10)
[2018-03-29] MEDS ORDERED: LIDOcaine 1%/PF 5ML 10 MG/ML VIAL SQ ONE (10:10)
[2018-03-29] MEDS ORDERED: fentaNYL/PF 50MCG/1 ML 2ML syringe IV PRN (10:10)
[2018-03-29] MEDS ORDERED: midazolam 2 mg/2 ml injection ONE ×2 (10:14→10:48)
[2018-03-29] MEDS ORDERED: fentaNYL/PF 50MCG/1 ML 2ML syringe ONE ×2 (10:15→10:48)
[2018-03-29] MEDS ORDERED: heparin 1,000 UNITS/NS 500ml 500 ML ONE (10:15)
[2018-03-29 11:24] VITALS: BP 133/55
[2018-03-29 11:45] VITALS: BP 176/88
[2018-03-29 12:00] VITALS: BP 138/75
[2018-03-29 12:15] VITALS: BP 142/81
[2018-03-29 12:30] VITALS: BP 145/54
== END 2018-03-29 13:00 | disposition home or self-care (01) ==
LOC: SSTAY O 07:41
PROVIDERS: ATTEND Radiology Diagnostic Radiology
DX: T82.858A Stenosis of other vascular prosthetic devices, implants and grafts, initial encounter (principal); Y83.8 Other surgical procedures as the cause of abnormal reaction of the patient, or of later complication, without mention of misadventure at the time of the procedure; Y92.89 Other specified places as the place of occurrence of the external cause; E11.42 Type 2 diabetes mellitus with diabetic polyneuropathy; E11.22 Type 2 diabetes mellitus with diabetic chronic kidney disease; I12.0 Hypertensive chronic kidney disease with stage 5 chronic kidney disease or end stage renal disease; N18.6 End stage renal disease; E78.5 Hyperlipidemia, unspecified; Z87.891 Personal history of nicotine dependence; Z87.01 Personal history of pneumonia (recurrent); Z86.19 Personal history of other infectious and parasitic diseases; Z99.2 Dependence on renal dialysis; Z96.698 Presence of other orthopedic joint implants; Z72.89 Other problems related to lifestyle; Z86.11 Personal history of tuberculosis; Z79.82 Long term (current) use of aspirin; Z79.891 Long term (current) use of opiate analgesic; Z98.890 Other specified postprocedural states; Z79.899 Other long term (current) drug therapy; Z83.3 Family history of diabetes mellitus
CPT/HCPCS: 36415; 36902; 80048; 85025; 85610; 99152; 99153; J1644; J2001; J2250; J3010; Q9967; C1725; C1769; C1894

== ENCOUNTER 2018-04-21 15:10 | Emergency (ER) | payer MEDICARE, MEDICAID, OTHER ==
[~2018-04-21] VITALS: Ht 167.6 cm; Wt 81.8 kg
[~2018-04-21 15:10] MED LIST changes: +ASPI81TA30 PO; -ATOR20TA66 PO; +DILT120T3 PO; +ENAL20TA PO; -ENAL20TA75 PO; +GABA600T13 PO; -GABA600T2 PO; +HYDR-3686 PO; -HYDR-3973 PO; +HYDR25TA4 PO; -LANTUS SUBCUT; +METO-384 PO; +PANT-47 PO; +PHO667C PO
[2018-04-21] MEDS ORDERED: acetaminophen 325mg tablet PO ONE (15:35)
[2018-04-21] MEDS ORDERED: guaiFENesin/DM 10ml UD oral syrup PO ONE (15:35)
[2018-04-21 17:16] LABS: BASOPHILS % (AUTO) 0.3 % (0-1); EOSINOPHILS # (AUTO) 0.1 X10'3 (0-0.9); EOSINOPHILS % (AUTO) 0.6 % (0-6); HEMATOCRIT 42.1 % (42.0-52.0); HEMOGLOBIN 13.6 g/dl (14.0-17.9); LYMPHOCYTES # (AUTO) 1.1 X10'3 (1.1-4.8); LYMPHOCYTES % (AUTO) 7.4 % (21-51); MEAN CORPUSCULAR HEMOGLOBIN 29.7 PG (27.0-31.0); MEAN CORPUSCULAR HGB CONC 32.3 % (33.0-36.5); MEAN CORPUSCULAR VOLUME 91.9 FL (78-98); MEAN PLATELET VOLUME 9.2 FL (7.4-10.4); MONOCYTES # (AUTO) 0.5 X10'3 (0-0.9); MONOCYTES % (AUTO) 3.4 % (2-12); NEUTROPHILS % (AUTO) 88.3 % (42-75); PLATELET COUNT 186 X10'3 (140-440); RED BLOOD COUNT 4.58 X10'6 (4.70-6.10); RED CELL DISTRIBUTION WIDTH 13.9 % (11.5-14.5); WHITE BLOOD COUNT 14.7 X10'3 (4.5-11.0)
[2018-04-21 17:39] LABS: ALANINE AMINOTRANSFERASE 19 U/L (12-78); ALBUMIN 2.7 G/DL (3.4-5.0); ALBUMIN/GLOBULIN RATIO 0.5 (1.1-1.5); ALKALINE PHOSPHATASE 72 IU/L (46-116); ANION GAP 13 (8-16); ASPARTATE AMINO TRANSFERASE 20 U/L (10-37); BILIRUBIN,TOTAL 0.5 MG/DL (0.1-1.0); BLOOD UREA NITROGEN 31 MG/DL (7-18); BUN/CREATININE RATIO 3.1 (5.4-32.0); CALCIUM 8.4 MG/DL (8.5-10.1); CHLORIDE 94 MMOL/L (99-107); CREATININE 10.03 MG/DL (0.60-1.10); GLUCOSE 226 MG/DL (70-104); SODIUM 135 MMOL/L (135-145); TOTAL CARBON DIOXIDE 28.2 MMOL/L (24-32); TOTAL PROTEIN 8.3 G/DL (6.4-8.2); eGFR 5 ML/MIN
[2018-04-21 17:49] VITALS: BP 146/69
[2018-04-21] MEDS ORDERED: AZIT250T2 PO (17:56)
[2018-04-21 18:21] LABS: TOTAL CELLS COUNTED 100
[2018-04-21 18:23] LABS: LARGE PLATELETS FEW; PLATELET ESTIMATE NORMAL
== END 2018-04-21 18:24 | disposition home or self-care (01) ==
LOC: ER 15:10
DX: J18.9 Pneumonia, unspecified organism (principal); I12.9 Hypertensive chronic kidney disease with stage 1 through stage 4 chronic kidney disease, or unspecified chronic kidney disease; E11.22 Type 2 diabetes mellitus with diabetic chronic kidney disease; N18.9 Chronic kidney disease, unspecified; Z99.2 Dependence on renal dialysis; Z79.82 Long term (current) use of aspirin; Z79.899 Other long term (current) drug therapy; Z60.2 Problems related to living alone
CPT/HCPCS: 36415; 71046; 80053; 84145; 85025; 87502; 87503; 93005; 99284

== ENCOUNTER 2018-04-22 15:02 | Inpatient (IN) | payer MEDICARE, MEDICAID, OTHER | END 2018-04-28 14:15 | disposition home or self-care (01) | LOC: ER 15:02 → PCU 3S 04-23 22:03 → ED HOLD 18:17 → PCU 3S 21:15 | DX: A41.9 Sepsis, unspecified organism (principal); N18.6 End stage renal disease; J18.9 Pneumonia, unspecified organism; E87.5 Hyperkalemia; Z99.2 Dependence on renal dialysis ==

== ENCOUNTER 2018-05-27 11:13 | Inpatient (IN) | payer MEDICARE, MEDICAID, OTHER | END 2018-06-02 16:30 | disposition home or self-care (01) | LOC: ER 11:13 → ED HOLD 14:13 → ICU 2S 15:55 | PROC: 009U3ZX Drainage of Spinal Canal, Percutaneous Approach, Diagnostic (ICD-10-PCS; principal; ~2018-05-27) | PROC: 0JHD3XZ Insertion of Tunneled Vascular Access Device into Right Upper Arm Subcutaneous Tissue and Fascia, Percutaneous Approach (ICD-10-PCS; ~2018-05-27) | PROC: 05HM33Z Insertion of Infusion Device into Right Internal Jugular Vein, Percutaneous Approach (ICD-10-PCS; ~2018-05-27) | PROC: B543ZZA Ultrasonography of Right Jugular Veins, Guidance (ICD-10-PCS; ~2018-05-27) | DX: A41.9 Sepsis, unspecified organism (principal); N18.6 End stage renal disease; J18.9 Pneumonia, unspecified organism; I12.0 Hypertensive chronic kidney disease with stage 5 chronic kidney disease or end stage renal disease; G93.40 Encephalopathy, unspecified; R56.9 Unspecified convulsions ==

== ENCOUNTER 2018-11-18 09:36 | Day surgery (SDC) | payer MEDICARE, MEDICAID, OTHER ==
[~2018-11-18] VITALS: Ht 167.6 cm; Wt 87.8 kg
[~2018-11-18 09:36] MED LIST changes: +ATOR20TA66 PO; -DILT120T3 PO; +DILT240C51 PO; -ENAL20TA PO; +FOSI20TA97 PO; +FURO80TA3 PO; +GABA-532 PO; -GABA600T13 PO; -HYDR-3686 PO; -HYDR25TA4 PO; +IPRA3AMP31 NEB; +LATA2.5D2 EACHEYE; +LEVE250T PO; -METO-384 PO; +METO50TA16 PO
[2018-11-18 09:40] VITALS: BP 165/75
[2018-11-18] MEDS ORDERED: normal saline 1000ml 1,000 ML IV PRN (10:05)
[2018-11-18] MEDS ORDERED: midazolam 2 mg/2 ml injection IV PRN (10:20)
[2018-11-18] MEDS ORDERED: heparin 1,000 units/ml 10ml inj ICATH ONE (10:20)
[2018-11-18] MEDS ORDERED: LIDOcaine 1% (10mg/ml) 2ml vial SQ ONE (10:20)
[2018-11-18] MEDS ORDERED: fentaNYL/PF 50MCG/1 ML 2ML syringe IV PRN (10:20)
[2018-11-18] MEDS ORDERED: heparin 1,000unit/ml 10ml vial 10 ML ONE (10:38)
[2018-11-18] MEDS ORDERED: LIDOcaine 1%/PF 5ML 10 MG/ML VIAL ONE (10:38)
[2018-11-18 12:30] VITALS: BP 167/76
== END 2018-11-18 12:30 | disposition home or self-care (01) ==
LOC: SSTAY O 09:36
PROVIDERS: ATTEND Radiology Diagnostic Radiology
DX: N18.6 End stage renal disease (principal); Z99.2 Dependence on renal dialysis
CPT/HCPCS: 36558; 76937; 77001; C1750; C1894; J1644; J7030; A9270

== ENCOUNTER 2018-11-22 00:17 | Inpatient (IN) | payer MEDICARE, MEDICAID, OTHER ==
[~2018-11-22] VITALS: Ht 167.6 cm; Wt 90.5 kg
[2018-11-22] VITALS (26 sets, daily range): BP systolic 106–178; BP diastolic 46–73
[2018-11-22] MEDS ORDERED: morphine 4 MG/ML inj SYRINge IV ONE (00:25)
[2018-11-22] MEDS ORDERED: ondansetron/PF 4mg/2ml inj IV ONE (00:25)
[2018-11-22] MEDS ORDERED: iohexol 300mg/ml 100ml inj. ONE (00:35)
[2018-11-22] MEDS ORDERED: dextrose ORAL solution 15 GM/59 ML bottle PO PRN ×2 (05:25)
[2018-11-22] MEDS ORDERED: dextrose 50%-water 50ml dispensing syringe IV PRN ×2 (05:25)
[2018-11-22] MEDS ORDERED: MESSAGE TO PHARMACY PO ONE (05:25)
[2018-11-22] MEDS ORDERED: acetaminophen 325mg tablet PO PRN ×2 (05:25)
[2018-11-22] MEDS ORDERED: glucagon, human recombinant 1mg kit SUBCUT PRN (05:25)
[2018-11-22] MEDS ORDERED: acetaminophen 650mg rectal suppository RC PRN (05:25)
[2018-11-22] MEDS ORDERED: ondansetron/PF 4mg/2ml inj IV PRN ×2 (05:25→17:05)
[2018-11-22] MEDS: HYDROmorphone inj. 0.5 MG/0.5 ML DISP.SYRIN IV PRN (07:18)
--- NOTE | 2018-11-22 07:45 | NUR ---
pt arrived to rm 2012 from ER. Received report from RAUDEL Luong. PT connected to monitor and oriented to room. c/o 10/10 scrotal pain exhibiting physiological pain behaviors, Tachypnea and elevated BP and moaning. Dilaudid 0.5mg administered IV with positive result, Pt able to relax. Educated pt on current POC. Pt remains NPO except for ice chips.
[2018-11-22 08:23] LABS: BASOPHILS # (AUTO) 0.1 X10'3 (0-0.2); BASOPHILS % (AUTO) 0.3 % (0-1); EOSINOPHILS # (AUTO) 0.7 X10'3 (0-0.9); EOSINOPHILS % (AUTO) 2.2 % (0-6); HEMATOCRIT 41.6 % (42.0-52.0); HEMOGLOBIN 13.5 g/dl (14.0-17.9); LYMPHOCYTES # (AUTO) 1.5 X10'3 (1.1-4.8); LYMPHOCYTES % (AUTO) 4.4 % (21-51); MEAN CORPUSCULAR HEMOGLOBIN 29.9 PG (27.0-31.0); MEAN CORPUSCULAR HGB CONC 32.5 g/dL (33.0-36.5); MEAN CORPUSCULAR VOLUME 91.9 FL (78-98); MEAN PLATELET VOLUME 10.1 FL (7.4-10.4); MONOCYTES # (AUTO) 1.5 X10'3 (0-0.9); MONOCYTES % (AUTO) 4.5 % (2-12); NEUTROPHILS # (AUTO) 29.1 X10'3 (1.8-7.7); NEUTROPHILS % (AUTO) 88.6 % (42-75); PLATELET COUNT 251 X10'3 (140-440); RED BLOOD COUNT 4.52 X10'6 (4.70-6.10); RED CELL DISTRIBUTION WIDTH 14.8 % (11.5-14.5)
[2018-11-22 08:26] LABS: PARTIAL THROMBOPLASTIN TIME 31 SECONDS (22-32)
[2018-11-22 08:27] LABS: ALANINE AMINOTRANSFERASE 12 U/L (12-78); ALBUMIN 2.6 G/DL (3.4-5.0); ALBUMIN/GLOBULIN RATIO 0.5 (1.1-1.5); ALKALINE PHOSPHATASE 167 IU/L (46-116); ANION GAP 17 (8-16); ASPARTATE AMINO TRANSFERASE 11 U/L (10-37); BILIRUBIN,TOTAL 0.9 MG/DL (0.1-1.0); BLOOD UREA NITROGEN 57 MG/DL (7-18); CALCIUM 8.2 MG/DL (8.5-10.1); CHLORIDE 103 MMOL/L (99-107); CREATININE 14.32 MG/DL (0.60-1.10); GLUCOSE 97 MG/DL (70-104); MAGNESIUM 2.1 MG/DL (1.5-2.4); PHOSPHORUS 7.6 MG/DL (2.3-4.5); POTASSIUM 5.4 MMOL/L (3.5-5.1); SODIUM 138 MMOL/L (135-145); TOTAL CARBON DIOXIDE 17.8 MMOL/L (24-32); TOTAL PROTEIN 7.9 G/DL (6.4-8.2); eGFR 4 ML/MIN
[2018-11-22 08:31] LABS: WHITE BLOOD COUNT 32.8 X10'3 (4.5-11.0)
[2018-11-22 08:52] LABS: HEMOGLOBIN A1C 8.4 % (4.5-6.2)
[2018-11-22] MEDS: ESOMEPRAZOLE 40 MG VIAL IV SCH (09:23)
[2018-11-22] MEDS: levetiracetam-NS 1000mg/100ml 100 ML IV SCH ×2 (09:28→21:16)
[2018-11-22] MEDS: piperacillin/tazo 3.375gm/50ml 50 ML IV SCH ×2 (09:46→21:45)
[2018-11-22] MEDS: HYDROmorphone 1 mg/ml syringe IV PRN ×2 (09:56→19:50)
[2018-11-22] MEDS ORDERED: vancomycin/NS 1 GM ADD-VANTAGE 250 ML IV PRN (12:15)
[2018-11-22] MEDS ORDERED: vancomycin inj 500 MG in normal saline 100ml IV soln 100 ML IV PRN (12:15)
--- NOTE | 2018-11-22 12:19 | NUR ---
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 To receive HD tomorrow given hx per MD. To remain NPO pending determination if requires surgery. Will monitor for diet advancement; pt will need high protein ed prior to d/c. Addendum: 11/22/18 at [address] Amended: Links added.
[2018-11-22] MEDS: docusate sod 100mg capsule PO SCH ×2 (12:42→20:00)
[2018-11-22] MEDS ORDERED: BUPIVAcaine/PF 2.5mg/ml (0.25%) 10ml vial ONE (16:34)
[2018-11-22] MEDS: clindamycin 600mg/D5W 50ml 50 ML IV SCH (16:44)
--- NOTE | 2018-11-22 16:55 | NUR ---
Pt to OR for I&D.
[2018-11-22] MEDS ORDERED: sevoflurane 250ml liquid IH ONE (17:00)
[2018-11-22] MEDS ORDERED: ringers solution, lacted 1,000 ML IV SCH (17:01)
[2018-11-22] MEDS ORDERED: enalaprilat dihydrate 2.5mg/2ml vial IV PRN (17:05)
[2018-11-22] MEDS ORDERED: fentaNYL/PF 50MCG/1 ML 2ML syringe ONE ×3 (17:05→17:27)
[2018-11-22] MEDS ORDERED: labetalol 20mg/4ml (5mg/ml) syringe IV PRN (17:05)
[2018-11-22] MEDS ORDERED: midazolam 2 mg/2 ml injection ONE (17:05)
[2018-11-22] MEDS ORDERED: morphine 4 MG/ML inj SYRINge IV PRN ×2 (17:05)
[2018-11-22] MEDS ORDERED: etomidate 2mg/ml inj. ONE (17:06)
[2018-11-22] MEDS ORDERED: ePHEDrine 50MG/ML INJ. ONE (17:22)
[2018-11-22 17:49] LABS: PLATELET ESTIMATE NORMAL; TOTAL CELLS COUNTED 100
--- NOTE | 2018-11-22 18:04 | NUR ---
pt returned from OR. VS stable. Wound vac in place with suctions at 125, good seal. Pt drowsy.
--- NOTE | 2018-11-22 18:15 | NUR ---
Patient in room CICU 2012. I have received report from Rikki Duron RN and had the opportunity to ask questions and assume patient care. Pt is drowsy follows commands. RR unlabored currently on oxygen via simple mask at 10L from OR. Oxygen saturation is 98%. Rhythm is sinus. Scrotum with wound vac @ 125mmHG scant brown drainage noted along wound vac tubing.. Peripheral IV to right wrist with NS infusing TKO. Dialysis access dual port to left upper chest. Scabs x2 to left upper arm Fistula site. Lungs clear BP stable. Abdomen is soft non tender BS absent. No distress. Pt being recovered in CICU at this time.
[2018-11-22] MEDS: fentaNYL/PF 50MCG/1 ML 2ML syringe IV PRN ×6 (18:20→18:53)
[2018-11-22] MEDS: insulin glargine (Lantus) pen - multi-dose SQ SCH (21:00)
[2018-11-23] VITALS (24 sets, daily range): BP systolic 99–148; BP diastolic 34–60
[2018-11-23] MEDS: clindamycin 600mg/D5W 50ml 50 ML IV SCH ×3 (01:15→16:26)
[2018-11-23] MEDS: HYDROmorphone 1 mg/ml syringe IV PRN (02:29)
[2018-11-23] MEDS: VANCOMYCIN LEVEL IV SCH (02:48)
[2018-11-23 03:11] LABS: BASOPHILS # (AUTO) 0.1 X10'3 (0-0.2); BASOPHILS % (AUTO) 0.4 % (0-1); EOSINOPHILS # (AUTO) 0.6 X10'3 (0-0.9); EOSINOPHILS % (AUTO) 1.6 % (0-6); HEMATOCRIT 40.7 % (42.0-52.0); HEMOGLOBIN 13.2 g/dl (14.0-17.9); LYMPHOCYTES # (AUTO) 1.8 X10'3 (1.1-4.8); MEAN CORPUSCULAR HEMOGLOBIN 30.1 PG (27.0-31.0); MEAN CORPUSCULAR HGB CONC 32.4 g/dL (33.0-36.5); MEAN PLATELET VOLUME 9.8 FL (7.4-10.4); MONOCYTES # (AUTO) 1.7 X10'3 (0-0.9); MONOCYTES % (AUTO) 4.8 % (2-12); NEUTROPHILS # (AUTO) 31.5 X10'3 (1.8-7.7); NEUTROPHILS % (AUTO) 88.2 % (42-75); PLATELET COUNT 247 X10'3 (140-440); RED BLOOD COUNT 4.38 X10'6 (4.70-6.10); RED CELL DISTRIBUTION WIDTH 15.2 % (11.5-14.5)
[2018-11-23 03:14] LABS: WHITE BLOOD COUNT 35.7 X10'3 (4.5-11.0)
[2018-11-23 03:25] LABS: ALANINE AMINOTRANSFERASE 7 U/L (12-78); ALBUMIN 2.4 G/DL (3.4-5.0); ALBUMIN/GLOBULIN RATIO 0.5 (1.1-1.5); ALKALINE PHOSPHATASE 128 IU/L (46-116); ANION GAP 23 (8-16); ASPARTATE AMINO TRANSFERASE 8 U/L (10-37); BILIRUBIN,TOTAL 0.8 MG/DL (0.1-1.0); BLOOD UREA NITROGEN 63 MG/DL (7-18); BUN/CREATININE RATIO 4.3 (5.4-32.0); CALCIUM 8.4 MG/DL (8.5-10.1); CHLORIDE 101 MMOL/L (99-107); CREATININE 14.76 MG/DL (0.60-1.10); GLUCOSE 110 MG/DL (70-104); MAGNESIUM 1.9 MG/DL (1.5-2.4); PHOSPHORUS 8.3 MG/DL (2.3-4.5); POTASSIUM 5.9 MMOL/L (3.5-5.1); SODIUM 138 MMOL/L (135-145); TOTAL PROTEIN 7.7 G/DL (6.4-8.2); VANCOMYCIN,RANDOM 31.7 UG/ML; eGFR 3 ML/MIN
[2018-11-23 03:27] LABS: TOTAL CARBON DIOXIDE 13.9 MMOL/L (24-32)
[2018-11-23 03:46] LABS: BASOPHILS % (MANUAL) 1 % (0-1); EOSINOPHILS % (MANUAL) 1 % (0-6); LYMPHOCYTES % (MANUAL) 5 % (21-51); MONOCYTES % (MANUAL) 5 % (2-12); NEUTROPHILS % (MANUAL) 88 % (42-75); PLATELET ESTIMATE NORMAL; TOTAL CELLS COUNTED 100
[2018-11-23 03:48] LABS: ROULEAUX 1+
--- NOTE | 2018-11-23 06:30 | NUR ---
Patient in room CICU 2012. I have received report from shift commander RN and had the opportunity to ask questions and assume patient care.
--- NOTE | 2018-11-23 06:30 | NUR ---
Problems reprioritized. Patient report given, questions answered & plan of care reviewed with Lizzie STARKS.
--- NOTE | 2018-11-23 07:30 | NUR ---
assessing patient, and patient is confused, thinks that he is at home, and asking for his dog. reoriented to place and time, will monitor.
[2018-11-23] MEDS: docusate sod 100mg capsule PO SCH ×2 (08:00→19:58)
[2018-11-23] MEDS: ESOMEPRAZOLE 40 MG VIAL IV SCH (08:21)
[2018-11-23] MEDS: levetiracetam-NS 1000mg/100ml 100 ML IV SCH ×2 (08:21→14:20)
[2018-11-23] MEDS: piperacillin/tazo 3.375gm/50ml 50 ML IV SCH ×2 (08:21→14:21)
--- NOTE | 2018-11-23 10:00 | NUR ---
resting comfortably at this time, asked if in pain, and states that it is mild at this point, appears more alert at this time
[2018-11-23] MEDS ORDERED: normal saline 1000ml 100 ML IV PRN (10:12)
[2018-11-23] MEDS ORDERED: normal saline 1000ml 250 ML IV PRN (10:12)
[2018-11-23] MEDS ORDERED: heparin 1,000 units/ml 10ml inj HE ONE ×2 (10:20)
[2018-11-23] MEDS: HYDROmorphone inj. 0.5 MG/0.5 ML DISP.SYRIN IV PRN ×3 (12:03→20:13)
[2018-11-23] MEDS ORDERED: normal saline 1000ml 1,000 ML IV SCH (12:05)
[2018-11-23] MEDS ORDERED: NORepinephrine 8mg/ 250ml NS 250 ML IV SCH (12:05)
--- NOTE | 2018-11-23 12:19 | NUR ---
DM consult, A1c 8.4, needs written DM education handout with verbal review and referral to outpatient DM education class on Wednesday morning. Pt is s/p I&D perineum and scrotal abscess with wound vac placement on 11/22, remains NPO. 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 To receive HD tomorrow given hx per MD. To remain. Will monitor for diet advancement; pt will need high protein ed prior to d/c. Noted that phosphorus is elevated at 8.3, takes Phoslo at home, not currently ordered, d/w bedside RN. Has increased protein needs r/t wound heal and HD. Not currently appropriate for education, per RN patient is not completely alert and oriented. Will continue to follow. Recommend: 1. Continue renal, carb controlled diet 2. May need phosphate binder d/t taking Phoslo at home and currently with elevated phosphorus 3. Monitor appetite and need for additional protein or ONS if suboptimal intake, no PO yet 4. Needs written and verbal education re: high protein and DM 5. wt per rx Addendum: 11/23/18 at [address] Amended: Links added.
[2018-11-23] MEDS ORDERED: FOSI40TA5 PO (12:26)
[2018-11-23] MEDS ORDERED: ATOR20TA66 PO (12:29)
--- NOTE | 2018-11-23 12:30 | NUR ---
continues with periodic confusion, and disorientation, thrashing in bed, but unable to state what is bothering him, when asked if in pain, no response to same. MD is aware of confusion.
[2018-11-23] MEDS ORDERED: METO50TA17 PO (12:34)
[2018-11-23] MEDS ORDERED: GABA-530 PO (12:36)
[2018-11-23] MEDS ORDERED: INSU100I31 SQ (12:42)
[2018-11-23] MEDS ORDERED: LEVE10006 PO (12:47)
--- NOTE | 2018-11-23 14:00 | NUR ---
confused again, thrashing in bed, and stating that needs to go....unable to state where...finally after many questions, states needs to go to the bathroom.
--- NOTE | 2018-11-23 15:22 | NUR ---
large loose BM in bedpan, BM also went into scrotal drsg and underneath, suction to wound vac no longer present due to wet loose drsg, on scrotum, page to Dr Louis regarding type of drsg needed, scrap iron loader paged to come and address.
[2018-11-23] MEDS ORDERED: levetiracetam-NS 1000mg/100ml 100 ML IV SCH (20:00)
[2018-11-23] MEDS: insulin glargine (Lantus) pen - multi-dose SQ SCH (20:16)
[2018-11-24] VITALS (20 sets, daily range): BP systolic 102–161; BP diastolic 36–87
[2018-11-24] MEDS: clindamycin 600mg/D5W 50ml 50 ML IV SCH ×4 (00:55→23:42)
[2018-11-24] MEDS: HYDROmorphone inj. 0.5 MG/0.5 ML DISP.SYRIN IV PRN (00:55)
[2018-11-24] MEDS ORDERED: levetiracetam-NS 1000mg/100ml 100 ML IV SCH (02:00)
[2018-11-24] MEDS: piperacillin/tazo 3.375gm/50ml 50 ML IV SCH ×2 (02:29→13:35)
[2018-11-24 02:33] LABS: BASOPHILS # (AUTO) 0.1 X10'3 (0-0.2); BASOPHILS % (AUTO) 0.4 % (0-1); EOSINOPHILS # (AUTO) 0.2 X10'3 (0-0.9); EOSINOPHILS % (AUTO) 0.7 % (0-6); HEMATOCRIT 35.7 % (42.0-52.0); HEMOGLOBIN 11.6 g/dl (14.0-17.9); LYMPHOCYTES # (AUTO) 1.4 X10'3 (1.1-4.8); LYMPHOCYTES % (AUTO) 4.8 % (21-51); MEAN CORPUSCULAR HEMOGLOBIN 29.5 PG (27.0-31.0); MEAN CORPUSCULAR HGB CONC 32.4 g/dL (33.0-36.5); MEAN CORPUSCULAR VOLUME 91.3 FL (78-98); MEAN PLATELET VOLUME 8.9 FL (7.4-10.4); MONOCYTES # (AUTO) 1.1 X10'3 (0-0.9); MONOCYTES % (AUTO) 3.8 % (2-12); NEUTROPHILS # (AUTO) 27.3 X10'3 (1.8-7.7); NEUTROPHILS % (AUTO) 90.3 % (42-75); PLATELET COUNT 266 X10'3 (140-440); RED BLOOD COUNT 3.91 X10'6 (4.70-6.10); RED CELL DISTRIBUTION WIDTH 14.7 % (11.5-14.5)
[2018-11-24 02:45] LABS: WHITE BLOOD COUNT 30.2 X10'3 (4.5-11.0)
[2018-11-24 02:58] LABS: ALANINE AMINOTRANSFERASE 14 U/L (12-78); ALBUMIN 2.2 G/DL (3.4-5.0); ALBUMIN/GLOBULIN RATIO 0.4 (1.1-1.5); ALKALINE PHOSPHATASE 139 IU/L (46-116); ANION GAP 17 (8-16); ASPARTATE AMINO TRANSFERASE 21 U/L (10-37); BILIRUBIN,TOTAL 0.5 MG/DL (0.1-1.0); BLOOD UREA NITROGEN 37 MG/DL (7-18); BUN/CREATININE RATIO 3.5 (5.4-32.0); CALCIUM 8.3 MG/DL (8.5-10.1); CHLORIDE 97 MMOL/L (99-107); CREATININE 10.54 MG/DL (0.60-1.10); GLUCOSE 224 MG/DL (70-104); PHOSPHORUS 8.9 MG/DL (2.3-4.5); POTASSIUM 5.3 MMOL/L (3.5-5.1); SODIUM 136 MMOL/L (135-145); TOTAL CARBON DIOXIDE 21.7 MMOL/L (24-32); TOTAL PROTEIN 7.6 G/DL (6.4-8.2); eGFR 5 ML/MIN
[2018-11-24 03:13] LABS: PLATELET ESTIMATE NORMAL; TOTAL CELLS COUNTED 100
[2018-11-24] MEDS ORDERED: lactulose 20gm/30ml cup PO PRN (05:25)
--- NOTE | 2018-11-24 06:36 | NUR ---
Patient in room CICU 2013. I have received report from Kristie and had the opportunity to ask questions and assume patient care.
[2018-11-24] MEDS: HYDROcodone/acetaminophen 10/325mg tab PO PRN ×3 (06:57→19:15)
[2018-11-24] MEDS: docusate sod 100mg capsule PO SCH ×2 (07:13→19:13)
[2018-11-24] MEDS: ESOMEPRAZOLE 40 MG VIAL IV SCH (07:13)
[2018-11-24] MEDS: insulin Lispro (HumaLOG) vial - multi-dose SQ SCH ×3 (08:50→19:39)
--- NOTE | 2018-11-24 11:53 | NUR ---
Problems reprioritized. Patient report given, questions answered & plan of care reviewed with Nia .
--- NOTE | 2018-11-24 11:58 | NUR ---
Patient in room CICU 2013. I have received report from RAUDEL Cedeño and had the opportunity to ask questions and assume patient care.
[2018-11-24] MEDS ORDERED: gabapentin 100mg capsule PO SCH (13:00)
[2018-11-24] MEDS: furosemide 40mg tablet PO SCH ×2 (13:21→21:54)
[2018-11-24] MEDS: calcium acetate 667mg (PhosLO) capsule PO SCH ×2 (13:28→19:13)
--- NOTE | 2018-11-24 16:26 | NUR ---
Patient in room CICU 2013. I have received report from Nia STARKS and had the opportunity to ask questions and assume patient care.
--- NOTE | 2018-11-24 16:45 | NUR ---
received pt from ICU stable, O2 at 2 LPM via N/C, pain 10/10 to scrotum, will medicate for pain
--- NOTE | 2018-11-24 16:59 | NUR ---
pt is up in chair with PT, order received to transfer pt to PCU, report given to RAUDEL Shore. pt transferred with belongings via wheelchair.
--- NOTE | 2018-11-24 18:00 | NUR ---
Problems reprioritized. Patient report given, questions answered & plan of care reviewed with Xena STARKS/Barbara STARKS.
--- NOTE | 2018-11-24 18:41 | NUR ---
Patient in room PCU 3027. I have received report from Patti STARKS and had the opportunity to ask questions and assume patient care.
[2018-11-24] MEDS: pantoprazole 40mg Tablet.DR PO SCH (19:14)
[2018-11-24] MEDS: levetiracetam 250mg tablet PO SCH (19:14)
[2018-11-24] MEDS: lactobacillus rhamnosus 10,000 MMU CELLS/CAPSULE PO SCH (19:14)
[2018-11-24] MEDS: metoprolol tartrate 50mg tablet PO SCH (19:15)
[2018-11-24] MEDS ORDERED: risperiDONE 0.5mg tablet PO ONE (21:00)
[2018-11-24] MEDS ORDERED: insulin glargine (Lantus) pen - multi-dose SQ SCH (21:00)
[2018-11-24] MEDS: insulin glargine (Lantus) pen - multi-dose SQ SCH (21:52)
[2018-11-24] MEDS: latanoprost 0.005% 2.5ml ophthalmic drops EACHEYE SCH (21:54)
[2018-11-24] MEDS: atorvastatin 20mg tablet PO SCH (21:54)
[2018-11-25] MEDS: piperacillin/tazo 3.375gm/50ml 50 ML IV SCH ×2 (01:37→17:38)
[2018-11-25 02:00] VITALS: BP 144/72
[2018-11-25] MEDS: HYDROcodone/acetaminophen 10/325mg tab PO PRN ×2 (02:25→11:09)
[2018-11-25] MEDS: VANCOMYCIN LEVEL IV SCH (03:00)
[2018-11-25 05:39] LABS: BASOPHILS # (AUTO) 0.1 X10'3 (0-0.2); BASOPHILS % (AUTO) 0.5 % (0-1); EOSINOPHILS # (AUTO) 0.8 X10'3 (0-0.9); EOSINOPHILS % (AUTO) 4.5 % (0-6); HEMATOCRIT 35.8 % (42.0-52.0); HEMOGLOBIN 11.8 g/dl (14.0-17.9); LYMPHOCYTES # (AUTO) 1.7 X10'3 (1.1-4.8); LYMPHOCYTES % (AUTO) 10.4 % (21-51); MEAN CORPUSCULAR HEMOGLOBIN 29.8 PG (27.0-31.0); MEAN CORPUSCULAR VOLUME 90.2 FL (78-98); MEAN PLATELET VOLUME 8.7 FL (7.4-10.4); MONOCYTES # (AUTO) 1.3 X10'3 (0-0.9); MONOCYTES % (AUTO) 7.7 % (2-12); NEUTROPHILS % (AUTO) 76.9 % (42-75); PLATELET COUNT 282 X10'3 (140-440); RED BLOOD COUNT 3.97 X10'6 (4.70-6.10); RED CELL DISTRIBUTION WIDTH 14.7 % (11.5-14.5); WHITE BLOOD COUNT 16.8 X10'3 (4.5-11.0)
--- NOTE | 2018-11-25 06:00 | NUR ---
Patient in room PCU 3026. I have received report from Xena RN/Barbara RN and had the opportunity to ask questions and assume patient care.
[2018-11-25 06:05] LABS: ALANINE AMINOTRANSFERASE 25 U/L (12-78); ALBUMIN 2.1 G/DL (3.4-5.0); ALBUMIN/GLOBULIN RATIO 0.4 (1.1-1.5); ALKALINE PHOSPHATASE 119 IU/L (46-116); ANION GAP 19 (8-16); ASPARTATE AMINO TRANSFERASE 32 U/L (10-37); BILIRUBIN,TOTAL 0.5 MG/DL (0.1-1.0); BLOOD UREA NITROGEN 51 MG/DL (7-18); BUN/CREATININE RATIO 4.1 (5.4-32.0); CALCIUM 8.3 MG/DL (8.5-10.1); CHLORIDE 95 MMOL/L (99-107); CREATININE 12.55 MG/DL (0.60-1.10); GLUCOSE 154 MG/DL (70-104); MAGNESIUM 2.2 MG/DL (1.5-2.4); PHOSPHORUS 8.8 MG/DL (2.3-4.5); POTASSIUM 4.6 MMOL/L (3.5-5.1); SODIUM 134 MMOL/L (135-145); TOTAL CARBON DIOXIDE 19.6 MMOL/L (24-32); TOTAL PROTEIN 7.5 G/DL (6.4-8.2); VANCOMYCIN,RANDOM 20.4 UG/ML; eGFR 4 ML/MIN
--- NOTE | 2018-11-25 06:05 | NUR ---
Orientee documentation: I have reviewed and agree with all interventions, assessments performed and documented by Barbara STARKS.
--- NOTE | 2018-11-25 06:14 | NUR ---
Problems reprioritized. Patient report given, questions answered & plan of care reviewed with Patti STARKS.
[2018-11-25] MEDS ORDERED: aspirin 81mg tab.chew PO SCH (08:00)
[2018-11-25] MEDS: calcium acetate 667mg (PhosLO) capsule PO SCH ×3 (08:00→20:09)
[2018-11-25] MEDS: docusate sod 100mg capsule PO SCH ×2 (08:00→20:00)
[2018-11-25] MEDS: metoprolol tartrate 50mg tablet PO SCH ×2 (08:00→20:00)
[2018-11-25] MEDS: clindamycin 600mg/D5W 50ml 50 ML IV SCH ×3 (08:00→23:22)
[2018-11-25] MEDS: lisinopril 20mg tablet PO SCH (08:00)
[2018-11-25] MEDS ORDERED: normal saline 1000ml 250 ML IV PRN (08:52)
[2018-11-25] MEDS ORDERED: heparin 1,000unit/ml 10ml vial 10 ML IV ONE (08:52)
[2018-11-25] MEDS ORDERED: heparin 1,000 units/ml 10ml inj HE ONE ×2 (09:00)
[2018-11-25] MEDS: insulin Lispro (HumaLOG) vial - multi-dose SQ SCH ×2 (09:12→20:05)
[2018-11-25 11:00] VITALS: BP_SYST 128; BP_SYST 133; BP_DIAS 60; BP_DIAS 66
[2018-11-25] MEDS: diltiazem CD 120mg capsule (once-daily) PO SCH (11:04)
[2018-11-25] MEDS: lactobacillus rhamnosus 10,000 MMU CELLS/CAPSULE PO SCH ×2 (11:06→20:09)
[2018-11-25] MEDS: folic acid 1mg tablet PO SCH (11:06)
[2018-11-25] MEDS: furosemide 40mg tablet PO SCH ×3 (11:06→20:10)
[2018-11-25] MEDS: levetiracetam 250mg tablet PO SCH ×2 (11:06→20:10)
[2018-11-25] MEDS: pantoprazole 40mg Tablet.DR PO SCH ×2 (11:07→20:07)
[2018-11-25] MEDS: vitamin B comp w/Vit. C tab 1 TAB TABLET PO SCH (11:08)
[2018-11-25] MEDS: aspirin 81mg tab.chew PO SCH (11:09)
[2018-11-25] MEDS: risperiDONE 0.5mg tablet PO SCH (11:21)
[2018-11-25] MEDS: HYDROmorphone 1 mg/ml syringe IV PRN (13:06)
--- NOTE | 2018-11-25 14:03 | NUR ---
WOUND VAC EDUCATION PROVIDED BY WOUND CARE 1. Patient instructed to call the Wound Center or their Home Health Agency immediately if: * They notice a change in the color or amount of the fluid in the canister. * Their wound looks more red than usual or has a foul smell. * The skin around their wound looks reddened or irritated. * The dressing feels loose or appears to be loose. * They experience any increase or changes in their pain. * The alarm will not turn off. 2. Patient instructed that they should not be disconnected from suction for more than 2 hours at a time. * If they are not able to get the suction back on, they need to remove the dressing and take all of the foam out of the wound. * Then moisten sterile gauze with normal saline and place on/in the wound. * Change the dressing once a day until arrangements have been made to replace the wound vac dressing. 3. Patient instructed to turn the wound vac machine OFF and call 911 or go to the ED immediately if their canister fills rapidly with blood. 4. If any of these occur while in the hospital tell a nurse immediately. Addendum: 11/25/18 at 1404 by Sabi Ordonez RN Amended: Links added.
[2018-11-25 15:00] VITALS: BP 102/53
[2018-11-25 18:00] VITALS: BP 92/45
--- NOTE | 2018-11-25 18:00 | NUR ---
Problems reprioritized. Patient report given, questions answered & plan of care reviewed with Xena STARKS/Barbara STARKS.
--- NOTE | 2018-11-25 18:33 | NUR ---
Patient in room PCU 3026. I have received report from Patti STARKS and had the opportunity to ask questions and assume patient care.
[2018-11-25] MEDS: atorvastatin 20mg tablet PO SCH (20:09)
[2018-11-25] MEDS: latanoprost 0.005% 2.5ml ophthalmic drops EACHEYE SCH (20:11)
[2018-11-25] MEDS: insulin glargine (Lantus) pen - multi-dose SQ SCH (21:22)
[2018-11-25 22:00] VITALS: BP 118/59
[2018-11-26] MEDS: HYDROcodone/acetaminophen 10/325mg tab PO PRN ×3 (00:19→21:14)
[2018-11-26] MEDS: piperacillin/tazo 3.375gm/50ml 50 ML IV SCH ×2 (01:33→14:24)
[2018-11-26 02:00] VITALS: BP 146/60
[2018-11-26 05:21] LABS: BASOPHILS # (AUTO) 0.1 X10'3 (0-0.2); BASOPHILS % (AUTO) 0.6 % (0-1); EOSINOPHILS # (AUTO) 0.5 X10'3 (0-0.9); EOSINOPHILS % (AUTO) 3.9 % (0-6); HEMATOCRIT 37.8 % (42.0-52.0); HEMOGLOBIN 12.3 g/dl (14.0-17.9); LYMPHOCYTES # (AUTO) 1.5 X10'3 (1.1-4.8); MEAN CORPUSCULAR HEMOGLOBIN 29.6 PG (27.0-31.0); MEAN CORPUSCULAR HGB CONC 32.5 g/dL (33.0-36.5); MEAN CORPUSCULAR VOLUME 90.9 FL (78-98); MONOCYTES # (AUTO) 1.3 X10'3 (0-0.9); MONOCYTES % (AUTO) 9.8 % (2-12); NEUTROPHILS # (AUTO) 9.5 X10'3 (1.8-7.7); NEUTROPHILS % (AUTO) 73.7 % (42-75); PLATELET COUNT 265 X10'3 (140-440); RED BLOOD COUNT 4.16 X10'6 (4.70-6.10); RED CELL DISTRIBUTION WIDTH 14.7 % (11.5-14.5); WHITE BLOOD COUNT 12.8 X10'3 (4.5-11.0)
[2018-11-26 05:36] LABS: ALANINE AMINOTRANSFERASE 29 U/L (12-78); ALBUMIN 2.4 G/DL (3.4-5.0); ALBUMIN/GLOBULIN RATIO 0.4 (1.1-1.5); ALKALINE PHOSPHATASE 140 IU/L (46-116); ANION GAP 14 (8-16); ASPARTATE AMINO TRANSFERASE 36 U/L (10-37); BILIRUBIN,TOTAL 0.5 MG/DL (0.1-1.0); BLOOD UREA NITROGEN 27 MG/DL (7-18); BUN/CREATININE RATIO 3.2 (5.4-32.0); CALCIUM 8.8 MG/DL (8.5-10.1); CHLORIDE 97 MMOL/L (99-107); CREATININE 8.41 MG/DL (0.60-1.10); GLUCOSE 156 MG/DL (70-104); MAGNESIUM 2.1 MG/DL (1.5-2.4); PHOSPHORUS 6.1 MG/DL (2.3-4.5); POTASSIUM 4.7 MMOL/L (3.5-5.1); SODIUM 134 MMOL/L (135-145); TOTAL CARBON DIOXIDE 23.1 MMOL/L (24-32); TOTAL PROTEIN 8.1 G/DL (6.4-8.2); eGFR 7 ML/MIN
--- NOTE | 2018-11-26 05:53 | NUR ---
Orientee documentation: I have reviewed and agree with all interventions, assessments performed and documented by Barbara STARKS.
[2018-11-26 06:00] VITALS: BP 139/64
--- NOTE | 2018-11-26 06:12 | NUR ---
Problems reprioritized. Patient report given, questions answered & plan of care reviewed with Modesto STARKS.
--- NOTE | 2018-11-26 06:39 | NUR ---
Patient in room PCU 3026. I have received report from Barbara STARKS and Tavia STARKS and had the opportunity to ask questions and assume patient care.
--- NOTE | 2018-11-26 08:04 | NUR ---
Please disregard the 900ml of urine in I&O it was placed in error. wrong pt chart.
[2018-11-26] MEDS: aspirin 81mg tab.chew PO SCH (08:20)
[2018-11-26] MEDS: lactobacillus rhamnosus 10,000 MMU CELLS/CAPSULE PO SCH ×2 (08:20→21:19)
[2018-11-26] MEDS: pantoprazole 40mg Tablet.DR PO SCH ×2 (08:20→21:17)
[2018-11-26] MEDS: docusate sod 100mg capsule PO SCH ×2 (08:20→21:18)
[2018-11-26] MEDS: levetiracetam 250mg tablet PO SCH ×2 (08:20→21:18)
[2018-11-26] MEDS: diltiazem CD 120mg capsule (once-daily) PO SCH (08:20)
[2018-11-26] MEDS: clindamycin 600mg/D5W 50ml 50 ML IV SCH ×3 (08:20→23:44)
[2018-11-26] MEDS: vitamin B comp w/Vit. C tab 1 TAB TABLET PO SCH (08:21)
[2018-11-26] MEDS: calcium acetate 667mg (PhosLO) capsule PO SCH ×3 (08:21→18:00)
[2018-11-26] MEDS: metoprolol tartrate 50mg tablet PO SCH ×2 (08:21→21:19)
[2018-11-26] MEDS: folic acid 1mg tablet PO SCH (08:21)
[2018-11-26] MEDS: lisinopril 20mg tablet PO SCH (08:22)
[2018-11-26] MEDS: risperiDONE 0.5mg tablet PO SCH (08:22)
[2018-11-26] MEDS: furosemide 40mg tablet PO SCH ×3 (08:23→21:18)
[2018-11-26] MEDS: HYDROmorphone 1 mg/ml syringe IV PRN (08:32)
[2018-11-26] MEDS: insulin Lispro (HumaLOG) vial - multi-dose SQ SCH ×2 (09:14→14:30)
[2018-11-26 11:00] VITALS: BP 119/58
--- NOTE | 2018-11-26 12:20 | NUR ---
Reassessment: Pt continues with HD and now with wound VAC to scrotum. Pt documented as A/O x 1 and confused, protein and DM education remains not appropriate at this time. PO intake seems to be improving with poor PO intake yesterday however documented with 100% PO intake at breakfast this morning. Weight overall has remained stable. LBM 11/25. Will continue to follow. Recommend: 1. Continue renal, carb controlled diet 2. Continue Phoslo 3. Monitor appetite and need for additional protein or ONS if suboptimal intake 4. Needs written and verbal education re: high protein and DM 5. wt per rx Addendum: 11/26/18 at [address] Amended: Links added.
[2018-11-26] MEDS: gabapentin 100mg capsule PO SCH ×3 (13:28→23:46)
--- NOTE | 2018-11-26 14:40 | NUR ---
Pt lethargic. C/o "I don't feel good". Pt unable to elaborate. VS and FSBG assessed. 98.9F oral temp, HR 61, 98% on 1L via NC, 18 RR, BP of 143/80, and FSBG of 146. Pt last Dilaudid administration 6 hours ago, no oral pain meds in last 24 hours. Will notify primary RN. distribution supervisor notified. Will continue to monitor.
[2018-11-26 15:00] VITALS: BP 168/73
--- NOTE | 2018-11-26 15:18 | NUR ---
Pt feeling nauseated. Meds given at 1300 and pt did not eat lunch except for veggies. Zofran given for nausea.
--- NOTE | 2018-11-26 16:08 | NUR ---
[place] given at 0653. RN noticed at this time there must have been a failure to scan with the scanner. Time note in [address] disbursement.
--- NOTE | 2018-11-26 17:51 | NUR ---
lAB CALLED WITH SCROTAL DRAINAGE CULTURE RESULTS. VRE POSITIVE.
--- NOTE | 2018-11-26 17:55 | NUR ---
MONY BEGUM CALLED AND INFORMED OF CULTURE RESULTS. VRE POSITIVE WOUND CULTURE.
[2018-11-26 18:00] VITALS: BP 130/61
--- NOTE | 2018-11-26 18:56 | NUR ---
Problems reprioritized. Patient report given, questions answered & plan of care reviewed with KRISTINE STARKS.
--- NOTE | 2018-11-26 18:57 | NUR ---
Patient in room [place] [address]. I have received report from Tori Johns and had the opportunity to ask questions and assume patient care. Addendum: 11/27/18 at 0029 by Chemo Garcia RN Patient in room [place] [address]. I have received report from TORI Salvador and had the opportunity to ask questions and assume patient care.
[2018-11-26] MEDS: atorvastatin 20mg tablet PO SCH (21:17)
[2018-11-26] MEDS: latanoprost 0.005% 2.5ml ophthalmic drops EACHEYE SCH (21:19)
[2018-11-26] MEDS: linezolid 600mg/300ml PREMIX 300 ML IV SCH (21:24)
[2018-11-26] MEDS: insulin glargine (Lantus) pen - multi-dose SQ SCH (21:46)
[2018-11-26 22:00] VITALS: BP 163/73
[2018-11-27] MEDS: HYDROmorphone inj. 0.5 MG/0.5 ML DISP.SYRIN IV PRN ×3 (00:32→18:11)
[2018-11-27 02:00] VITALS: BP 116/65
[2018-11-27] MEDS: piperacillin/tazo 3.375gm/50ml 50 ML IV SCH ×2 (02:07→14:14)
[2018-11-27] MEDS: HYDROcodone/acetaminophen 10/325mg tab PO PRN (02:18)
[2018-11-27 06:12] LABS: BASOPHILS # (AUTO) 0.1 X10'3 (0-0.2); BASOPHILS % (AUTO) 0.6 % (0-1); EOSINOPHILS # (AUTO) 0.6 X10'3 (0-0.9); EOSINOPHILS % (AUTO) 5.8 % (0-6); HEMATOCRIT 38.2 % (42.0-52.0); HEMOGLOBIN 12.8 g/dl (14.0-17.9); LYMPHOCYTES # (AUTO) 1.7 X10'3 (1.1-4.8); LYMPHOCYTES % (AUTO) 16.2 % (21-51); MEAN CORPUSCULAR HEMOGLOBIN 30.1 PG (27.0-31.0); MEAN CORPUSCULAR HGB CONC 33.4 g/dL (33.0-36.5); MEAN CORPUSCULAR VOLUME 90.1 FL (78-98); MEAN PLATELET VOLUME 8.5 FL (7.4-10.4); MONOCYTES # (AUTO) 0.9 X10'3 (0-0.9); MONOCYTES % (AUTO) 9.1 % (2-12); NEUTROPHILS # (AUTO) 7.1 X10'3 (1.8-7.7); NEUTROPHILS % (AUTO) 68.3 % (42-75); PLATELET COUNT 260 X10'3 (140-440); RED BLOOD COUNT 4.24 X10'6 (4.70-6.10); RED CELL DISTRIBUTION WIDTH 14.4 % (11.5-14.5); WHITE BLOOD COUNT 10.4 X10'3 (4.5-11.0)
--- NOTE | 2018-11-27 06:20 | NUR ---
Patient in room PCU 3011. I have received report from RAUDEL Mclain and had the opportunity to ask questions and assume patient care.
--- NOTE | 2018-11-27 06:26 | NUR ---
Problems reprioritized. Patient report given, questions answered & plan of care reviewed with RAUDEL Brown.
[2018-11-27 06:27] LABS: ALANINE AMINOTRANSFERASE 23 U/L (12-78); ALBUMIN 2.2 G/DL (3.4-5.0); ALBUMIN/GLOBULIN RATIO 0.4 (1.1-1.5); ALKALINE PHOSPHATASE 116 IU/L (46-116); ANION GAP 15 (8-16); ASPARTATE AMINO TRANSFERASE 21 U/L (10-37); BILIRUBIN,TOTAL 0.4 MG/DL (0.1-1.0); BLOOD UREA NITROGEN 38 MG/DL (7-18); BUN/CREATININE RATIO 3.6 (5.4-32.0); CALCIUM 8.6 MG/DL (8.5-10.1); CHLORIDE 96 MMOL/L (99-107); CREATININE 10.44 MG/DL (0.60-1.10); GLUCOSE 135 MG/DL (70-104); MAGNESIUM 2.3 MG/DL (1.5-2.4); PHOSPHORUS 7.6 MG/DL (2.3-4.5); SODIUM 134 MMOL/L (135-145); TOTAL CARBON DIOXIDE 22.7 MMOL/L (24-32); TOTAL PROTEIN 7.7 G/DL (6.4-8.2); eGFR 5 ML/MIN
[2018-11-27 07:00] VITALS: BP 116/47
[2018-11-27 07:41] LABS: PLATELET ESTIMATE NORMAL; TOTAL CELLS COUNTED 100
[2018-11-27 07:42] LABS: ANISOCYTOSIS 1+; LARGE PLATELETS FEW; POLYCHROMASIA FEW
[2018-11-27] MEDS: metoprolol tartrate 50mg tablet PO SCH ×2 (08:00→21:35)
--- NOTE | 2018-11-27 08:10 | NUR ---
Patient in room PCU 3011. I have received report from RAUDEL Mclain and had the opportunity to ask questions and assume patient care.
[2018-11-27] MEDS: clindamycin 600mg/D5W 50ml 50 ML IV SCH ×2 (08:36→17:03)
[2018-11-27] MEDS: levetiracetam 250mg tablet PO SCH ×2 (08:42→21:34)
[2018-11-27] MEDS: furosemide 40mg tablet PO SCH ×3 (08:43→21:34)
[2018-11-27] MEDS: pantoprazole 40mg Tablet.DR PO SCH ×2 (08:43→21:34)
[2018-11-27] MEDS: folic acid 1mg tablet PO SCH (08:43)
[2018-11-27] MEDS: diltiazem CD 120mg capsule (once-daily) PO SCH (08:43)
[2018-11-27] MEDS: calcium acetate 667mg (PhosLO) capsule PO SCH ×3 (08:44→18:11)
[2018-11-27] MEDS: risperiDONE 0.5mg tablet PO SCH (08:44)
[2018-11-27] MEDS: lactobacillus rhamnosus 10,000 MMU CELLS/CAPSULE PO SCH ×2 (08:44→21:36)
[2018-11-27] MEDS: aspirin 81mg tab.chew PO SCH (08:44)
[2018-11-27] MEDS: gabapentin 100mg capsule PO SCH (08:44)
[2018-11-27] MEDS: lisinopril 20mg tablet PO SCH (08:45)
[2018-11-27] MEDS: docusate sod 100mg capsule PO SCH ×2 (08:45→21:34)
[2018-11-27] MEDS: vitamin B comp w/Vit. C tab 1 TAB TABLET PO SCH (08:45)
[2018-11-27] MEDS: linezolid 600mg/300ml PREMIX 300 ML IV SCH ×3 (09:16→19:23)
[2018-11-27] MEDS: ipratropium/albuterol 3ml nebule NEB PRN ×2 (09:59→20:22)
[2018-11-27] MEDS: insulin Lispro (HumaLOG) vial - multi-dose SQ SCH ×3 (10:03→19:22)
[2018-11-27 11:00] VITALS: BP 134/65
--- NOTE | 2018-11-27 12:25 | NUR ---
F/u: zyvox consult; pt remains AOx1 not appropriate for eds at this time. Addendum: 11/27/18 at [address] Amended: Links added.
[2018-11-27 15:00] VITALS: BP 123/62
[2018-11-27 18:00] VITALS: BP 142/83
--- NOTE | 2018-11-27 18:15 | NUR ---
Problems reprioritized. Patient report given, questions answered & plan of care reviewed with RAUDEL Oliver.
[2018-11-27] MEDS ORDERED: piperacillin/tazo 3.375gm/50ml 50 ML IV SCH (21:00)
[2018-11-27] MEDS: latanoprost 0.005% 2.5ml ophthalmic drops EACHEYE SCH (21:26)
[2018-11-27] MEDS: atorvastatin 20mg tablet PO SCH (21:36)
--- NOTE | 2018-11-27 21:37 | NUR ---
Coreg held tonight per parameters r/t low HR in the 50's. Addendum: 11/27/18 at 2201 by Lacy Restrepo RN Wrong medication-Lopressor.
[2018-11-27] MEDS: insulin glargine (Lantus) pen - multi-dose SQ SCH (21:45)
[2018-11-27 22:00] VITALS: BP 151/72
--- NOTE | 2018-11-27 22:01 | NUR ---
Lopressor held tonight per parameters r/t low HR in the 50's.
[2018-11-28] MEDS: clindamycin 600mg/D5W 50ml 50 ML IV SCH ×2 (01:58→08:46)
[2018-11-28 02:00] VITALS: BP 148/55
[2018-11-28] MEDS: HYDROcodone/acetaminophen 10/325mg tab PO PRN ×3 (02:19→12:31)
[2018-11-28 05:33] LABS: BASOPHILS # (AUTO) 0.1 X10'3 (0-0.2); BASOPHILS % (AUTO) 0.5 % (0-1); EOSINOPHILS # (AUTO) 0.8 X10'3 (0-0.9); EOSINOPHILS % (AUTO) 6.4 % (0-6); HEMATOCRIT 39.3 % (42.0-52.0); HEMOGLOBIN 12.9 g/dl (14.0-17.9); LYMPHOCYTES # (AUTO) 1.5 X10'3 (1.1-4.8); LYMPHOCYTES % (AUTO) 12.8 % (21-51); MEAN CORPUSCULAR HEMOGLOBIN 29.6 PG (27.0-31.0); MEAN CORPUSCULAR HGB CONC 32.7 g/dL (33.0-36.5); MEAN CORPUSCULAR VOLUME 90.6 FL (78-98); MONOCYTES % (AUTO) 8.6 % (2-12); NEUTROPHILS # (AUTO) 8.6 X10'3 (1.8-7.7); NEUTROPHILS % (AUTO) 71.7 % (42-75); PLATELET COUNT 269 X10'3 (140-440); RED BLOOD COUNT 4.34 X10'6 (4.70-6.10); RED CELL DISTRIBUTION WIDTH 14.3 % (11.5-14.5)
[2018-11-28 05:53] LABS: ALANINE AMINOTRANSFERASE 22 U/L (12-78); ALBUMIN 2.3 G/DL (3.4-5.0); ALBUMIN/GLOBULIN RATIO 0.4 (1.1-1.5); ALKALINE PHOSPHATASE 110 IU/L (46-116); ANION GAP 18 (8-16); ASPARTATE AMINO TRANSFERASE 16 U/L (10-37); BILIRUBIN,TOTAL 0.4 MG/DL (0.1-1.0); BLOOD UREA NITROGEN 46 MG/DL (7-18); BUN/CREATININE RATIO 3.7 (5.4-32.0); CALCIUM 8.4 MG/DL (8.5-10.1); CHLORIDE 93 MMOL/L (99-107); CREATININE 12.28 MG/DL (0.60-1.10); GLUCOSE 165 MG/DL (70-104); MAGNESIUM 2.3 MG/DL (1.5-2.4); PHOSPHORUS 8.1 MG/DL (2.3-4.5); POTASSIUM 4.9 MMOL/L (3.5-5.1); SODIUM 131 MMOL/L (135-145); TOTAL CARBON DIOXIDE 20.4 MMOL/L (24-32); TOTAL PROTEIN 7.6 G/DL (6.4-8.2); VANCOMYCIN,RANDOM 13.6 UG/ML; eGFR 4 ML/MIN
[2018-11-28 06:00] VITALS: BP 144/68
--- NOTE | 2018-11-28 06:12 | NUR ---
Patient in room PCU 3011. I have received report from Melody STARKS and had the opportunity to ask questions and assume patient care. Was given report regarding the patient and that the staff has been using the TDC port for IV access. Upon my assessment I found the dressing needing replacement and the TDC had only a blue cap on it. There was no report regarding heparinizing or an order for tko, or and kind of valve on the port. I have called the MD to ask about orders for a midline or about having a tko of Normal saline. Will continue to monitor.
[2018-11-28] MEDS: linezolid 600mg/300ml PREMIX 300 ML IV SCH (07:10)
[2018-11-28] MEDS: metoprolol tartrate 50mg tablet PO SCH ×2 (08:00→20:06)
[2018-11-28] MEDS: docusate sod 100mg capsule PO SCH ×2 (08:00→20:08)
[2018-11-28] MEDS: lisinopril 20mg tablet PO SCH (08:00)
[2018-11-28] MEDS: HYDROmorphone inj. 0.5 MG/0.5 ML DISP.SYRIN IV PRN ×2 (08:36→16:01)
[2018-11-28] MEDS: aspirin 81mg tab.chew PO SCH (08:39)
[2018-11-28] MEDS: folic acid 1mg tablet PO SCH (08:40)
[2018-11-28] MEDS: lactobacillus rhamnosus 10,000 MMU CELLS/CAPSULE PO SCH ×2 (08:40→20:08)
[2018-11-28] MEDS: diltiazem CD 120mg capsule (once-daily) PO SCH (08:40)
[2018-11-28] MEDS: levetiracetam 250mg tablet PO SCH ×2 (08:41→20:03)
[2018-11-28] MEDS: furosemide 40mg tablet PO SCH ×3 (08:42→20:07)
[2018-11-28] MEDS: calcium acetate 667mg (PhosLO) capsule PO SCH ×3 (08:44→18:59)
[2018-11-28] MEDS: gabapentin 100mg capsule PO SCH (08:44)
[2018-11-28] MEDS: pantoprazole 40mg Tablet.DR PO SCH ×2 (08:44→20:03)
[2018-11-28] MEDS: risperiDONE 0.5mg tablet PO SCH (08:44)
[2018-11-28] MEDS: vitamin B comp w/Vit. C tab 1 TAB TABLET PO SCH (08:44)
[2018-11-28] MEDS ORDERED: normal saline 1000ml 250 ML IV PRN (10:03)
[2018-11-28] MEDS ORDERED: heparin 1,000unit/ml 10ml vial 10 ML IV ONE (10:03)
[2018-11-28] MEDS ORDERED: heparin 1,000 units/ml 10ml inj HE ONE ×2 (10:10)
[2018-11-28 11:00] VITALS: BP 134/62
[2018-11-28] MEDS ORDERED: ceftazidime 1000mg in D5W 50ml 50 ML IV SCH (11:10)
[2018-11-28] MEDS: metroNIDAZOLE 500mg tablet PO SCH ×2 (12:30→20:07)
[2018-11-28] MEDS: insulin Lispro (HumaLOG) vial - multi-dose SQ SCH ×2 (13:22→19:03)
--- NOTE | 2018-11-28 13:35 | NUR ---
Spoke with Dr. Louis regarding the compound filler recommendation for the patient to have an I and D. MD aware.
[2018-11-28 15:00] VITALS: BP 107/54
[2018-11-28] MEDS: cefTAZidime inj. 1 GM in normal saline 100ml IV soln 100 ML IV SCH (15:09)
[2018-11-28] MEDS ORDERED: LIDOcaine 4% (40 mg/ml) topical solution 50ml TP PRN (15:15)
[2018-11-28 18:00] VITALS: BP 126/64
--- NOTE | 2018-11-28 18:19 | NUR ---
Problems reprioritized. Patient report given, questions answered & plan of care reviewed with Natalie STARKS. Patient stable at transfer of care.
--- NOTE | 2018-11-28 18:20 | NUR ---
Received report from RAUDEL Kumari with RAUDEL Brown. Patient is awake and alert on room air, in no apparent distress. Call light and items of frequent use within reach. Will continue to monitor.
[2018-11-28] MEDS: linezolid 600mg tablet PO SCH (20:03)
[2018-11-28] MEDS: atorvastatin 20mg tablet PO SCH (20:07)
[2018-11-28] MEDS: latanoprost 0.005% 2.5ml ophthalmic drops EACHEYE SCH (20:07)
[2018-11-28] MEDS: insulin glargine (Lantus) pen - multi-dose SQ SCH (20:39)
[2018-11-28 22:00] VITALS: BP 157/75
[2018-11-28] MEDS: HYDROmorphone 1 mg/ml syringe IV PRN (23:33)
[2018-11-29 02:00] VITALS: BP 155/76
[2018-11-29] MEDS: HYDROcodone/acetaminophen 10/325mg tab PO PRN ×3 (02:22→20:07)
[2018-11-29 05:59] LABS: BASOPHILS # (AUTO) 0.1 X10'3 (0-0.2); BASOPHILS % (AUTO) 0.8 % (0-1); EOSINOPHILS # (AUTO) 0.9 X10'3 (0-0.9); EOSINOPHILS % (AUTO) 7.9 % (0-6); HEMOGLOBIN 13.1 g/dl (14.0-17.9); LYMPHOCYTES # (AUTO) 1.6 X10'3 (1.1-4.8); LYMPHOCYTES % (AUTO) 13.8 % (21-51); MEAN CORPUSCULAR HEMOGLOBIN 30.4 PG (27.0-31.0); MEAN CORPUSCULAR HGB CONC 33.5 g/dL (33.0-36.5); MEAN CORPUSCULAR VOLUME 90.6 FL (78-98); MEAN PLATELET VOLUME 9.1 FL (7.4-10.4); MONOCYTES # (AUTO) 0.8 X10'3 (0-0.9); MONOCYTES % (AUTO) 6.6 % (2-12); NEUTROPHILS # (AUTO) 8.5 X10'3 (1.8-7.7); NEUTROPHILS % (AUTO) 70.9 % (42-75); PLATELET COUNT 283 X10'3 (140-440); RED CELL DISTRIBUTION WIDTH 14.6 % (11.5-14.5); WHITE BLOOD COUNT 11.9 X10'3 (4.5-11.0)
--- NOTE | 2018-11-29 06:10 | NUR ---
Problems reprioritized. Patient report given, questions answered & plan of care reviewed with RAUDEL Kumari and RAUDEL Dozier.
[2018-11-29 06:18] LABS: ALANINE AMINOTRANSFERASE 22 U/L (12-78); ALBUMIN 2.5 G/DL (3.4-5.0); ALBUMIN/GLOBULIN RATIO 0.4 (1.1-1.5); ALKALINE PHOSPHATASE 129 IU/L (46-116); ANION GAP 14 (8-16); ASPARTATE AMINO TRANSFERASE 20 U/L (10-37); BILIRUBIN,TOTAL 0.3 MG/DL (0.1-1.0); BLOOD UREA NITROGEN 29 MG/DL (7-18); CALCIUM 8.4 MG/DL (8.5-10.1); CHLORIDE 97 MMOL/L (99-107); CREATININE 9.59 MG/DL (0.60-1.10); GLUCOSE 165 MG/DL (70-104); MAGNESIUM 2.2 MG/DL (1.5-2.4); PHOSPHORUS 5.6 MG/DL (2.3-4.5); POTASSIUM 4.9 MMOL/L (3.5-5.1); SODIUM 133 MMOL/L (135-145); TOTAL CARBON DIOXIDE 22.1 MMOL/L (24-32); TOTAL PROTEIN 8.1 G/DL (6.4-8.2); eGFR 6 ML/MIN
--- NOTE | 2018-11-29 06:25 | NUR ---
Patient in room PCU 3011. I have received report from Natalie STARKS and had the opportunity to ask questions and assume patient care.
[2018-11-29 07:00] VITALS: BP 148/79
[2018-11-29] MEDS: docusate sod 100mg capsule PO SCH ×2 (08:00→20:00)
[2018-11-29] MEDS: HYDROmorphone 1 mg/ml syringe IV PRN ×2 (08:21→18:58)
[2018-11-29] MEDS: cefTAZidime inj. 1 GM in normal saline 100ml IV soln 100 ML IV SCH (08:22)
[2018-11-29] MEDS: aspirin 81mg tab.chew PO SCH (08:25)
[2018-11-29] MEDS: diltiazem CD 120mg capsule (once-daily) PO SCH (08:25)
[2018-11-29] MEDS: lactobacillus rhamnosus 10,000 MMU CELLS/CAPSULE PO SCH ×2 (08:25→19:58)
[2018-11-29] MEDS: furosemide 40mg tablet PO SCH ×3 (08:26→20:08)
[2018-11-29] MEDS: risperiDONE 0.5mg tablet PO SCH (08:26)
[2018-11-29] MEDS: calcium acetate 667mg (PhosLO) capsule PO SCH ×3 (08:26→19:01)
[2018-11-29] MEDS: metroNIDAZOLE 500mg tablet PO SCH ×3 (08:26→20:07)
[2018-11-29] MEDS: levetiracetam 250mg tablet PO SCH ×2 (08:26→19:58)
[2018-11-29] MEDS: vitamin B comp w/Vit. C tab 1 TAB TABLET PO SCH (08:26)
[2018-11-29] MEDS: pantoprazole 40mg Tablet.DR PO SCH ×2 (08:26→20:00)
[2018-11-29] MEDS: folic acid 1mg tablet PO SCH (08:26)
[2018-11-29] MEDS: gabapentin 100mg capsule PO SCH (08:27)
[2018-11-29] MEDS: lisinopril 20mg tablet PO SCH (08:27)
[2018-11-29] MEDS: linezolid 600mg tablet PO SCH ×2 (08:27→20:01)
[2018-11-29] MEDS: metoprolol tartrate 50mg tablet PO SCH ×2 (08:27→19:59)
[2018-11-29] MEDS: insulin Lispro (HumaLOG) vial - multi-dose SQ SCH ×2 (08:31→20:36)
[2018-11-29 11:00] VITALS: BP 135/74
--- NOTE | 2018-11-29 13:41 | NUR ---
Patient blood glucose was 86 and the patient did not eat any of his hospital food. Unable to calculate the amount of carbs from the food he ate that his family brought him. No insulin coverage for that reason, will monitor closely.
[2018-11-29 15:00] VITALS: BP 136/66
[2018-11-29] MEDS ORDERED: RISP0.5T3 PO (15:07)
[2018-11-29] MEDS ORDERED: GABA-530 PO (15:07)
[2018-11-29] MEDS ORDERED: LINE600T14 PO (15:07)
[2018-11-29] MEDS ORDERED: CEFT1VIA IM (15:07)
[2018-11-29] MEDS ORDERED: COL100C PO (15:07)
[2018-11-29] MEDS ORDERED: HYDR-3972 PO (15:07)
[2018-11-29] MEDS ORDERED: IPRA3AMP9 NEB (15:07)
[2018-11-29] MEDS ORDERED: ZOF4I IV (15:07)
[2018-11-29] MEDS ORDERED: HYDR1DIS4 IV (15:07)
[2018-11-29] MEDS ORDERED: METR500T PO (15:07)
[2018-11-29] MEDS ORDERED: LACT10SO32 PO (15:07)
--- NOTE | 2018-11-29 15:31 | NUR ---
Reassessment: Per physical assessment pt A/O x 4 however with mild confusion. Attempted visit with pt at bedside however pt was sleeping and did not wake with verbal cues. Written low tyramine nutrition therapy, protein, and DM education with referral to outpatient DM class and RD contact information left at bedside. Pt continues on renal CHO controlled diet with fluctuating PO intake overall 75-100% meeting nutrient needs. Wt stable. LBM 11/28. Will continue to follow. Recommend: 1. Continue renal, carb controlled diet 2. Continue Phoslo 3. Monitor appetite and need for additional protein or ONS if suboptimal intake 4. wt per rx Addendum: 11/29/18 at 1532 by [address] A [address] Amended: Links added.
--- NOTE | 2018-11-29 18:16 | NUR ---
Problems reprioritized. Patient report given, questions answered & plan of care reviewed with April.
--- NOTE | 2018-11-29 18:24 | NUR ---
Orientee documentation: I have reviewed and agree with interventions, assessments performed and documented by Stephanie STARKS. [place]ee Medication Administration: For this medication-pass time frame, medication were reviewed, dispensed, administered and documented per hospital policy by Stephanie STARKS.
[2018-11-29 19:00] VITALS: BP 147/74
[2018-11-29 19:59] VITALS: BP_SYST 171
[2018-11-29] MEDS: atorvastatin 20mg tablet PO SCH (20:07)
[2018-11-29] MEDS: insulin glargine (Lantus) pen - multi-dose SQ SCH (21:41)
[2018-11-29] MEDS: latanoprost 0.005% 2.5ml ophthalmic drops EACHEYE SCH (21:42)
--- NOTE | 2018-11-30 00:20 | NUR ---
Patient transferred to [facility] by ambulance. Wound vac discontinued, PIV removed, Telemetry discontinued. All belongings were sent with the patient.
== END 2018-11-30 00:30 | DRG 717 ==
LOC: ER 00:18 → CICU 2S 06:30 → CMPBEDREQ 06:32 → PCU 3S 11-24 16:45
PROVIDERS: ADMIT Internal Medicine Critical Care Medicine; ATTEND Internal Medicine Critical Care Medicine
PROC: 0JBB0ZZ Excision of Perineum Subcutaneous Tissue and Fascia, Open Approach (ICD-10-PCS; 2018-11-22)
PROC: 0J9B0ZZ Drainage of Perineum Subcutaneous Tissue and Fascia, Open Approach (ICD-10-PCS; principal; 2018-11-22 17:00)
PROC: 5A1D70Z Performance of Urinary Filtration, Intermittent, Less than 6 Hours Per Day (ICD-10-PCS; 2018-11-25)
PROC: 5A1D70Z Performance of Urinary Filtration, Intermittent, Less than 6 Hours Per Day (ICD-10-PCS; 2018-11-28)
DX: N49.3 Fournier gangrene (principal); N18.6 End stage renal disease; I12.0 Hypertensive chronic kidney disease with stage 5 chronic kidney disease or end stage renal disease; E11.22 Type 2 diabetes mellitus with diabetic chronic kidney disease; B19.20 Unspecified viral hepatitis C without hepatic coma; E78.5 Hyperlipidemia, unspecified; E11.65 Type 2 diabetes mellitus with hyperglycemia; G40.909 Epilepsy, unspecified, not intractable, without status epilepticus; M72.9 Fibroblastic disorder, unspecified; I48.91 Unspecified atrial fibrillation; E78.00 Pure hypercholesterolemia, unspecified; Z99.2 Dependence on renal dialysis; Z86.73 Personal history of transient ischemic attack (TIA), and cerebral infarction without residual deficits; Z87.01 Personal history of pneumonia (recurrent); Z83.3 Family history of diabetes mellitus; Z79.899 Other long term (current) drug therapy; Z87.891 Personal history of nicotine dependence; E11.42 Type 2 diabetes mellitus with diabetic polyneuropathy
CPT/HCPCS: 36415; 71045; 72193; 80053; 80202; 82948; 83036; 83605; 83735; 84100; 84145; 85025; 85610; 85730; 86885; 86900; 86901; 87040; 87070; 87075; 87077; 87081; 87102; 87186; 93005; 94640; 94760; 96374; 96375; 97110; 97116; 97162; 97530; 99285; A4215; A4618; A6550; A7000; G0257; G0378; J0713; J1170; J1644; J1815; J1953; J2020; J2250; J2270; J2405; J2543; J3010; J3370; J3490; J7120; Q9967

== ENCOUNTER 2019-01-09 15:52 | Emergency (ER) | payer MEDICARE, MEDICAID, OTHER ==
[~2019-01-09] VITALS: Ht 167.6 cm; Wt 81.8 kg
[~2019-01-09 15:52] MED LIST changes: +COL100C PO; -FOSI20TA97 PO; +FOSI40TA5 PO; +GABA-530 PO; -GABA-532 PO; +HYDR-3972 PO; +HYDR1DIS4 IV; +INSU100I31 SQ; -IPRA3AMP31 NEB; +IPRA3AMP9 NEB; +LACT10SO32 PO; +LEVE10006 PO; -LEVE250T PO; +LINE600T14 PO; -METO50TA16 PO; +METO50TA17 PO; +METR500T PO; +RISP0.5T3 PO; -TRAM50TA2 PO; +ZOF4I IV
[2019-01-09 15:59] VITALS: BP 152/80
== END 2019-01-09 16:46 | disposition home or self-care (01) ==
LOC: ER 15:52
DX: L08.89 Other specified local infections of the skin and subcutaneous tissue (principal); I12.9 Hypertensive chronic kidney disease with stage 1 through stage 4 chronic kidney disease, or unspecified chronic kidney disease; E11.22 Type 2 diabetes mellitus with diabetic chronic kidney disease; N18.9 Chronic kidney disease, unspecified; Z99.2 Dependence on renal dialysis; Z79.899 Other long term (current) drug therapy; Z79.82 Long term (current) use of aspirin; Z79.4 Long term (current) use of insulin
CPT/HCPCS: 99281

== ENCOUNTER 2019-02-10 05:12 | Inpatient (IN) | payer MEDICARE, MEDICAID, OTHER ==
[~2019-02-10] VITALS: Ht 162.6 cm; Wt 89.5 kg
--- NOTE | 2019-02-10 05:47 | NUR ---
NOTIFIED DR WU OF PT INCREASED WORK OF BREATHING VERBAL ORDER FOR SOLUMEDROL GIVEN . DR WU ALSO STATES HE IS GOING TO ORDER RESP TX . SATS 98 % ON 4 L RR28-30
[2019-02-10] MEDS ORDERED: methylPREDNISolone sod succ 125mg/2ml vial IV ONE (05:50)
[2019-02-10 05:57] LABS: BASOPHILS # (AUTO) 0.1 X10'3 (0-0.2); BASOPHILS % (AUTO) 0.8 % (0-1); EOSINOPHILS # (AUTO) 0.9 X10'3 (0-0.9); EOSINOPHILS % (AUTO) 6.7 % (0-6); HEMATOCRIT 36.7 % (42.0-52.0); HEMOGLOBIN 11.8 g/dl (14.0-17.9); LYMPHOCYTES # (AUTO) 1.5 X10'3 (1.1-4.8); LYMPHOCYTES % (AUTO) 11.1 % (21-51); MEAN CORPUSCULAR HEMOGLOBIN 29.1 PG (27.0-31.0); MEAN CORPUSCULAR HGB CONC 32.2 g/dL (33.0-36.5); MEAN CORPUSCULAR VOLUME 90.3 FL (78-98); MEAN PLATELET VOLUME 10.4 FL (7.4-10.4); MONOCYTES # (AUTO) 0.8 X10'3 (0-0.9); MONOCYTES % (AUTO) 5.9 % (2-12); NEUTROPHILS # (AUTO) 10.1 X10'3 (1.8-7.7); NEUTROPHILS % (AUTO) 75.5 % (42-75); PLATELET COUNT 227 X10'3 (140-440); RED BLOOD COUNT 4.06 X10'6 (4.70-6.10); RED CELL DISTRIBUTION WIDTH 16.8 % (11.5-14.5); WHITE BLOOD COUNT 13.4 X10'3 (4.5-11.0)
--- NOTE | 2019-02-10 05:57 | NUR ---
LAB HERE TO DRAW PT FOR ADDITIONAL BLOOD
[2019-02-10] MEDS ORDERED: meperidine/PF 50mg/ml syringe IV ONE (06:00)
[2019-02-10 06:08] LABS: ALANINE AMINOTRANSFERASE 15 U/L (12-78); ALBUMIN 3.3 G/DL (3.4-5.0); ALBUMIN/GLOBULIN RATIO 0.6 (1.1-1.5); ALKALINE PHOSPHATASE 99 IU/L (46-116); ANION GAP 19 (8-16); ASPARTATE AMINO TRANSFERASE 12 U/L (10-37); BILIRUBIN,TOTAL 0.4 MG/DL (0.1-1.0); BLOOD UREA NITROGEN 64 MG/DL (7-18); BUN/CREATININE RATIO 4.3 (5.4-32.0); CHLORIDE 105 MMOL/L (99-107); CREATININE 15.02 MG/DL (0.60-1.10); GLUCOSE 182 MG/DL (70-104); MAGNESIUM 2.7 MG/DL (1.5-2.4); SODIUM 141 MMOL/L (135-145); TOTAL CARBON DIOXIDE 17.5 MMOL/L (24-32); TOTAL PROTEIN 8.6 G/DL (6.4-8.2); eGFR 3 ML/MIN
[2019-02-10] MEDS ORDERED: albuterol 2.5 MG/3 ML nebule NEB ONE (06:15)
--- NOTE | 2019-02-10 06:16 | NUR ---
PT UP TO BEDSIDE COMMODE FOR BOWEL MOVEMENT
--- NOTE | 2019-02-10 06:17 | NUR ---
RESP PAGGED FOR BREATHING TX
[2019-02-10 06:26] LABS: PARTIAL THROMBOPLASTIN TIME 29 SECONDS (22-32)
--- NOTE | 2019-02-10 06:26 | NUR ---
POTASSIUM AT 7.[address] WU AND REPORTED OFF TO RAUDEL COATES
[2019-02-10] MEDS ORDERED: nitroGLYCERIN 0.4mg/hour patch TD ONE (06:45)
[2019-02-10] MEDS ORDERED: dextrose 50%-water 50ml dispensing syringe IV PRN ×2 (07:15)
[2019-02-10] MEDS ORDERED: glucagon, human recombinant 1mg kit SUBCUT PRN (07:15)
[2019-02-10] MEDS ORDERED: acetaminophen 325mg tablet PO PRN (07:15)
[2019-02-10] MEDS ORDERED: dextrose ORAL solution 15 GM/59 ML bottle PO PRN ×2 (07:15)
[2019-02-10] MEDS ORDERED: bisacodyl 10mg suppository rectal RC PRN (07:15)
[2019-02-10] MEDS ORDERED: ondansetron/PF 4mg/2ml inj IV PRN (07:15)
[2019-02-10] MEDS ORDERED: MESSAGE TO PHARMACY PO ONE (07:15)
[2019-02-10] MEDS ORDERED: insulin Lispro (HumaLOG) vial - multi-dose SQ SCH (07:15)
[2019-02-10] MEDS ORDERED: MYCOL30CR TP (07:22)
[2019-02-10] MEDS ORDERED: POLY17PO10 PO (07:22)
[2019-02-10] MEDS ORDERED: DILTIAZEM HCL ER PO (07:22)
[2019-02-10] MEDS ORDERED: MIDO2.5T14 PO (07:22)
[2019-02-10] MEDS ORDERED: ALBU2.5V12 NEB (07:22)
[2019-02-10] MEDS ORDERED: INSU100I8 SQ (07:22)
[2019-02-10] MEDS ORDERED: METO50TA7 PO (07:22)
[2019-02-10] MEDS ORDERED: OMEP20TA23 PO (07:22)
[2019-02-10] MEDS ORDERED: ONDA4TAB12 PO (07:22)
[2019-02-10] MEDS ORDERED: GLARGINE SUBCUT (07:22)
[2019-02-10] MEDS ORDERED: LISI40TA4 PO (07:22)
[2019-02-10] MEDS ORDERED: PRAV80TA3 PO (07:22)
[2019-02-10] MEDS ORDERED: HYDR-4353 PO ×2 (07:26)
[2019-02-10] MEDS ORDERED: ATR0.5NEB IH (07:26)
[2019-02-10] MEDS ORDERED: normal saline 1000ml 250 ML IV PRN (07:49)
[2019-02-10] MEDS ORDERED: heparin 1,000unit/ml 10ml vial 10 ML IV ONE (07:49)
[2019-02-10] MEDS ORDERED: polyethylene glycol 3350 17gm powd pack PO PRN (07:50)
[2019-02-10] MEDS ORDERED: heparin 1,000 units/ml 10ml inj IV ONE (07:50)
[2019-02-10] MEDS ORDERED: ipratropium 0.5 MG/2.5ML nebule IH SCH (08:00)
[2019-02-10] MEDS: calcium acetate 667mg (PhosLO) capsule PO SCH ×3 (08:00→17:09)
[2019-02-10] MEDS: folic acid 1mg tablet PO SCH (08:00)
[2019-02-10] MEDS ORDERED: midodrine tablet 2.5 MG TABLET PO SCH (08:00)
[2019-02-10] MEDS: gabapentin 100mg capsule PO SCH (08:00)
[2019-02-10] MEDS ORDERED: nystatin/triamcinolone cream 15gm TP SCH (08:00)
[2019-02-10] MEDS ORDERED: HYDROcodone/acetaminophen 10/325mg tab PO SCH ×2 (08:00→12:00)
[2019-02-10] MEDS: heparin, porcine 5000 units/ml vial SQ SCH ×2 (08:00→20:00)
[2019-02-10] MEDS: docusate sod 100mg capsule PO SCH ×2 (08:00→20:00)
--- NOTE | 2019-02-10 08:22 | NUR ---
CALLED TO GIVE REPORT TO TELEMETRY NURSE. SPOKE WITH ECONOMIC ADVISER. RN IS PASSING MEDS AT THIS TIME AND WILL CALL BACK TO GET REPORT.
--- NOTE | 2019-02-10 08:53 | NUR ---
Recieved report from ER Nurse Modesto RN pt will come to rm 10 ISO for hx VRE HD nurse notified for HD order.
[2019-02-10] MEDS: lisinopril 20mg tablet PO SCH (09:22)
[2019-02-10] MEDS: metoprolol succinate 25mg (24-HOUR) SR. Tablet PO SCH (09:22)
[2019-02-10] MEDS: aspirin 81mg tab.chew PO SCH (09:23)
[2019-02-10] MEDS: folic acid/vitamin B complex w/vitamin C 0.8mg tablet PO SCH (09:23)
[2019-02-10] MEDS: atorvastatin 20mg tablet PO SCH (09:23)
[2019-02-10] MEDS: pantoprazole 40mg Tablet.DR PO SCH (09:23)
[2019-02-10] MEDS ORDERED: albuterol 2.5 MG/3 ML nebule NEB SCH (09:25)
[2019-02-10 09:30] VITALS: BP 152/83
[2019-02-10 09:31] LABS: HEMOGLOBIN A1C 6.1 % (4.5-6.2)
[2019-02-10] MEDS: diltiazem CD 180mg cap (once-daily) PO SCH (09:32)
--- NOTE | 2019-02-10 10:02 | NUR ---
DM consult: Patient's A1c is 6.1, DM education not warranted at this time. Will continue to follow. Addendum: 02/10/19 at 100[address] by [address] Amended: Links added.
[2019-02-10] MEDS ORDERED: NYST30CR2 TP (10:05)
[2019-02-10] MEDS ORDERED: INSU100V9 SQ (10:05)
[2019-02-10] MEDS ORDERED: DILT180C53 PO (10:11)
[2019-02-10] MEDS ORDERED: heparin 1,000 units/ml 10ml inj HE ONE ×2 (10:35)
[2019-02-10 11:00] VITALS: BP 174/95
--- NOTE | 2019-02-10 12:40 | NUR ---
pt is resting comfortably and receiving HD VSS
[2019-02-10 15:00] VITALS: BP 160/83
[2019-02-10] MEDS: ipratropium/albuterol 3ml nebule NEB SCH ×3 (15:20→23:12)
--- NOTE | 2019-02-10 16:15 | NUR ---
pt skipped lunch r/t HD. He is eating now and will defer 1700 accuchek r/t non fasting. Accuchek resume @ 5752
[2019-02-10 18:00] VITALS: BP 153/86
--- NOTE | 2019-02-10 18:00 | NUR ---
Patient in room PCU 3010. I have received report from Shannan Valle and had the opportunity to ask questions and assume patient care.
--- NOTE | 2019-02-10 18:19 | NUR ---
Problems reprioritized. Patient report given, questions answered & plan of care reviewed with RAUDEL Simon.
--- NOTE | 2019-02-10 18:22 | NUR ---
1700 accuchek deferred as pt had late lunch @ 1600, next Accuchek @ 1999 Addendum: 02/10/19 at 1823 by Talita Vazquez RN Amended: Links added.
--- NOTE | 2019-02-10 19:02 | NUR ---
I have reviewed and agree with all medications administered and interventions performed by FRET SAW OPERATOR Student Loyd Horn.
[2019-02-10] MEDS ORDERED: hydrALAZINE 25 MG tablet PO SCH (20:00)
[2019-02-10] MEDS: HYDROcodone/acetaminophen 10/325mg tab PO SCH (20:00)
[2019-02-10] MEDS: NYSTATIN CREAM - 30GM TUBE TP SCH (20:00)
[2019-02-10] MEDS: levetiracetam 250mg tablet PO SCH (20:00)
--- NOTE | 2019-02-10 20:00 | NUR ---
pt did not eat food from dinner tray. pt had Taco Baxter brought by visitor
[2019-02-10] MEDS ORDERED: latanoprost 0.005% 2.5ml ophthalmic drops EACHEYE SCH (21:00)
[2019-02-10] MEDS ORDERED: insulin glargine (Lantus) pen - multi-dose SQ SCH (21:00)
[2019-02-10 22:00] VITALS: BP 151/78
[2019-02-11 02:00] VITALS: BP 135/62
[2019-02-11] MEDS: ipratropium/albuterol 3ml nebule NEB SCH ×4 (02:59→14:56)
[2019-02-11] MEDS: HYDROcodone/acetaminophen 10/325mg tab PO SCH ×2 (04:07→09:25)
[2019-02-11 06:00] VITALS: BP 134/69
[2019-02-11 06:16] LABS: BASOPHILS % (AUTO) 0.4 % (0-1); EOSINOPHILS % (AUTO) 0.1 % (0-6); HEMATOCRIT 30.9 % (42.0-52.0); HEMOGLOBIN 10.3 g/dl (14.0-17.9); MEAN CORPUSCULAR HEMOGLOBIN 29.4 PG (27.0-31.0); MEAN CORPUSCULAR HGB CONC 33.3 g/dL (33.0-36.5); MEAN CORPUSCULAR VOLUME 88.3 FL (78-98); MEAN PLATELET VOLUME 10.1 FL (7.4-10.4); MONOCYTES # (AUTO) 0.8 X10'3 (0-0.9); MONOCYTES % (AUTO) 7.5 % (2-12); NEUTROPHILS # (AUTO) 8.3 X10'3 (1.8-7.7); PLATELET COUNT 205 X10'3 (140-440); RED CELL DISTRIBUTION WIDTH 16.7 % (11.5-14.5); WHITE BLOOD COUNT 10.1 X10'3 (4.5-11.0)
--- NOTE | 2019-02-11 06:28 | NUR ---
Problems reprioritized. Patient report given, questions answered & plan of care reviewed with RAUDEL Gordon.
[2019-02-11 06:31] LABS: ALANINE AMINOTRANSFERASE 13 U/L (12-78); ALBUMIN 3.1 G/DL (3.4-5.0); ALBUMIN/GLOBULIN RATIO 0.6 (1.1-1.5); ALKALINE PHOSPHATASE 96 IU/L (46-116); ANION GAP 14 (8-16); ASPARTATE AMINO TRANSFERASE 8 U/L (10-37); BILIRUBIN,TOTAL 0.3 MG/DL (0.1-1.0); BLOOD UREA NITROGEN 58 MG/DL (7-18); BUN/CREATININE RATIO 4.9 (5.4-32.0); CALCIUM 8.2 MG/DL (8.5-10.1); CHLORIDE 102 MMOL/L (99-107); CREATININE 11.85 MG/DL (0.60-1.10); GLUCOSE 170 MG/DL (70-104); MAGNESIUM 2.4 MG/DL (1.5-2.4); PHOSPHORUS 7.7 MG/DL (2.3-4.5); POTASSIUM 4.9 MMOL/L (3.5-5.1); SODIUM 139 MMOL/L (135-145); TOTAL CARBON DIOXIDE 23.3 MMOL/L (24-32); TOTAL PROTEIN 7.9 G/DL (6.4-8.2); eGFR 4 ML/MIN
--- NOTE | 2019-02-11 06:51 | NUR ---
Patient in room PCU 3010. I have received report from RAUDEL Bradley and had the opportunity to ask questions and assume patient care. Pt is sleeping. In no apparent distress. Will continue to monitor.
[2019-02-11] MEDS: docusate sod 100mg capsule PO SCH (08:00)
[2019-02-11] MEDS: pantoprazole 40mg Tablet.DR PO SCH (09:16)
[2019-02-11] MEDS: diltiazem CD 180mg cap (once-daily) PO SCH (09:20)
[2019-02-11] MEDS: metoprolol succinate 25mg (24-HOUR) SR. Tablet PO SCH (09:20)
[2019-02-11] MEDS: heparin, porcine 5000 units/ml vial SQ SCH (09:22)
[2019-02-11] MEDS: calcium acetate 667mg (PhosLO) capsule PO SCH ×2 (09:23→13:00)
[2019-02-11] MEDS: lisinopril 20mg tablet PO SCH (09:23)
[2019-02-11] MEDS: aspirin 81mg tab.chew PO SCH (09:24)
[2019-02-11] MEDS: gabapentin 100mg capsule PO SCH (09:24)
[2019-02-11] MEDS: folic acid/vitamin B complex w/vitamin C 0.8mg tablet PO SCH (09:24)
[2019-02-11] MEDS: folic acid 1mg tablet PO SCH (09:25)
[2019-02-11] MEDS: atorvastatin 20mg tablet PO SCH (09:25)
[2019-02-11] MEDS: NYSTATIN CREAM - 30GM TUBE TP SCH (09:29)
[2019-02-11 11:00] VITALS: BP 174/95
[2019-02-11] MEDS ORDERED: LEVO250T58 PO (11:36)
[2019-02-11] MEDS ORDERED: levoFLOXACIN 500mg tablet PO ONE (11:40)
[2019-02-11] MEDS: levetiracetam 250mg tablet PO SCH (11:40)
== END 2019-02-11 14:50 | disposition home or self-care (01) | DRG 193 ==
LOC: ER 05:13 → ED HOLD 07:11 → PCU 3S 09:53
PROVIDERS: ADMIT Internal Medicine Critical Care Medicine; ATTEND Internal Medicine Critical Care Medicine
PROC: 5A1D70Z Performance of Urinary Filtration, Intermittent, Less than 6 Hours Per Day (ICD-10-PCS; principal; 2019-02-10)
DX: J18.1 Lobar pneumonia, unspecified organism (principal); N18.6 End stage renal disease; J98.11 Atelectasis; J44.1 Chronic obstructive pulmonary disease with (acute) exacerbation; I13.2 Hypertensive heart and chronic kidney disease with heart failure and with stage 5 chronic kidney disease, or end stage renal disease; J44.0 Chronic obstructive pulmonary disease with (acute) lower respiratory infection; E87.5 Hyperkalemia; E87.70 Fluid overload, unspecified; E11.22 Type 2 diabetes mellitus with diabetic chronic kidney disease; B19.20 Unspecified viral hepatitis C without hepatic coma; E78.5 Hyperlipidemia, unspecified; I50.9 Heart failure, unspecified; E11.42 Type 2 diabetes mellitus with diabetic polyneuropathy; M72.9 Fibroblastic disorder, unspecified; Z83.3 Family history of diabetes mellitus; Z86.73 Personal history of transient ischemic attack (TIA), and cerebral infarction without residual deficits; Z87.891 Personal history of nicotine dependence; Z99.2 Dependence on renal dialysis; Z79.82 Long term (current) use of aspirin; Z91.15 Patient's noncompliance with renal dialysis
CPT/HCPCS: 36415; 71045; 80053; 82948; 83036; 83735; 84100; 84145; 84484; 85025; 85610; 85730; 87081; 93005; 94640; 94760; 96374; 99291; G0257; G0378; J1644; J1815; J2175; J2930; J7999

== ENCOUNTER 2019-06-26 16:25 | Inpatient (IN) | payer MEDICARE, MEDICAID ==
[~2019-06-26] VITALS: Ht 167.6 cm; Wt 81.0 kg
[~2019-06-26 16:25] MED LIST changes: +ALBU2.5V12 NEB; -ATOR20TA66 PO; +ATR0.5NEB IH; +DILT180C53 PO; -DILT240C51 PO; -FOSI40TA5 PO; -FURO80TA3 PO; -HYDR-3972 PO; +HYDR-4353 PO; -HYDR1DIS4 IV; -INSU100I31 SQ; +INSU100I8 SQ; +INSU100V9 SQ; -IPRA3AMP9 NEB; -LACT10SO32 PO; -LEVE10006 PO; -LINE600T14 PO; +LISI40TA4 PO; -METO50TA17 PO; +METO50TA7 PO; -METR500T PO; +MIDO2.5T14 PO; +NYST30CR2 TP; +OMEP20TA23 PO; +ONDA4TAB12 PO; -PANT-47 PO; +POLY17PO10 PO; +PRAV80TA3 PO; -RISP0.5T3 PO; -ZOF4I IV
[2019-06-26] MEDS ORDERED: acetaminophen 325mg tablet PO PRN (17:10)
[2019-06-26] MEDS ORDERED: ondansetron/PF 4mg/2ml inj IV PRN (17:10)
[2019-06-26] MEDS ORDERED: heparin 1,000unit/ml 10ml vial 10 ML IV ONE (17:15)
[2019-06-26] MEDS ORDERED: normal saline 1000ml 250 ML IV PRN (17:15)
[2019-06-26] MEDS ORDERED: albumin (human) 25% 100ml IV 100 ML IV PRN (17:15)
[2019-06-26] MEDS ORDERED: heparin 1,000 units/ml 10ml inj IV ONE (17:15)
[2019-06-26] MEDS ORDERED: epoetin 20,000 units/ml inj IV ONE (17:15)
[2019-06-26] MEDS ORDERED: GABA100C PO (17:32)
[2019-06-26] MEDS ORDERED: PHO667C PO (17:32)
[2019-06-26] MEDS ORDERED: LEVE500T PO (17:32)
[2019-06-26] MEDS ORDERED: AMLO10TA PO (17:32)
[2019-06-26] MEDS ORDERED: METH5TAB2 PO (17:32)
[2019-06-26] MEDS ORDERED: FOLI1CAP7 PO (17:32)
[2019-06-26] MEDS ORDERED: DOCU100C40 PO (17:34)
[2019-06-26 18:38] LABS: HEMATOCRIT 37.5 % (42.0-52.0); HEMOGLOBIN 12.3 g/dl (14.0-17.9); MEAN CORPUSCULAR HEMOGLOBIN 29.5 PG (27.0-31.0); MEAN CORPUSCULAR HGB CONC 32.7 g/dL (33.0-36.5); MEAN CORPUSCULAR VOLUME 90.3 FL (78-98); MEAN PLATELET VOLUME 10.8 FL (7.4-10.4); PLATELET COUNT 199 X10'3 (140-440); RED BLOOD COUNT 4.15 X10'6 (4.70-6.10); RED CELL DISTRIBUTION WIDTH 15.5 % (11.5-14.5); WHITE BLOOD COUNT 15.4 X10'3 (4.5-11.0)
--- NOTE | 2019-06-26 19:14 | NUR ---
Rec'd report from RAUDEL Pop in the ER.
[2019-06-26 19:31] LABS: LARGE PLATELETS MODERATE; PLATELET ESTIMATE NORMAL
--- NOTE | 2019-06-26 19:40 | NUR ---
Patient arrived from ER on [facility] and was transferred to hospital bed w/o problem. He is A&O x4, DIAMOND and is appropriate. The dialysis nurse Stephanie is at the bedside and I will continue to monitor.
[2019-06-26 19:45] VITALS: BP 154/76
[2019-06-26 19:45] LABS: ALBUMIN 3.5 G/DL (3.4-5.0); ALBUMIN/GLOBULIN RATIO 0.8 (1.1-1.5); ALKALINE PHOSPHATASE 79 IU/L (46-116); ANION GAP 21 (8-16); ASPARTATE AMINO TRANSFERASE 14 U/L (10-37); BILIRUBIN,TOTAL 0.6 MG/DL (0.1-1.0); BLOOD UREA NITROGEN 106 MG/DL (7-18); BUN/CREATININE RATIO 7.1 (5.4-32.0); CALCIUM 6.8 MG/DL (8.5-10.1); CHLORIDE 102 MMOL/L (99-107); CREATININE 14.98 MG/DL (0.60-1.10); GLUCOSE 107 MG/DL (70-104); MAGNESIUM 2.3 MG/DL (1.5-2.4); SODIUM 141 MMOL/L (135-145); TOTAL CARBON DIOXIDE 18.1 MMOL/L (24-32); eGFR 3 ML/MIN
[2019-06-26 19:47] LABS: ALANINE AMINOTRANSFERASE < 6 U/L (12-78); PHOSPHORUS 11.2 MG/DL (2.3-4.5)
[2019-06-26 20:00] VITALS: BP 164/78
[2019-06-26] MEDS: docusate sod 100mg capsule PO SCH (20:00)
[2019-06-26] MEDS: heparin, porcine 5000 units/ml vial SQ SCH (20:00)
[2019-06-26] MEDS: famotidine 20mg tablet PO SCH (20:53)
[2019-06-26 21:00] VITALS: BP 150/79
[2019-06-26 22:00] VITALS: BP 143/81
[2019-06-26 23:00] VITALS: BP 160/77
[2019-06-26] MEDS ORDERED: insulin Lispro (HumaLOG) vial - multi-dose SQ SCH (23:05)
[2019-06-26] MEDS ORDERED: dextrose 50%-water 50ml dispensing syringe IV PRN ×2 (23:05)
[2019-06-26] MEDS ORDERED: glucagon, human recombinant 1mg kit SUBCUT PRN (23:05)
[2019-06-26] MEDS ORDERED: dextrose ORAL solution 15 GM/59 ML bottle PO PRN ×2 (23:05)
--- NOTE | 2019-06-26 23:06 | NUR ---
No diabetic protocol ordered, per AKIL Morrow ok to put hyperglycemic orders in.
[2019-06-27] VITALS (13 sets, daily range): BP systolic 151–181; BP diastolic 67–91
[2019-06-27 04:58] LABS: BASOPHILS # (AUTO) 0.1 X10'3 (0-0.2); EOSINOPHILS # (AUTO) 0.3 X10'3 (0-0.9); EOSINOPHILS % (AUTO) 2.8 % (0-6); HEMATOCRIT 36.9 % (42.0-52.0); HEMOGLOBIN 12.6 g/dl (14.0-17.9); LYMPHOCYTES % (AUTO) 8.3 % (21-51); MEAN CORPUSCULAR HEMOGLOBIN 30.4 PG (27.0-31.0); MEAN CORPUSCULAR HGB CONC 34.3 g/dL (33.0-36.5); MEAN CORPUSCULAR VOLUME 88.8 FL (78-98); MONOCYTES % (AUTO) 8.1 % (2-12); NEUTROPHILS # (AUTO) 9.5 X10'3 (1.8-7.7); NEUTROPHILS % (AUTO) 79.8 % (42-75); PLATELET COUNT 177 X10'3 (140-440); RED BLOOD COUNT 4.15 X10'6 (4.70-6.10); RED CELL DISTRIBUTION WIDTH 15.6 % (11.5-14.5); WHITE BLOOD COUNT 11.9 X10'3 (4.5-11.0)
[2019-06-27 05:14] LABS: HEMOGLOBIN A1C 6.2 % (4.5-6.2)
[2019-06-27 05:16] LABS: ALANINE AMINOTRANSFERASE 13 U/L (12-78); ALBUMIN 3.3 G/DL (3.4-5.0); ALBUMIN/GLOBULIN RATIO 0.7 (1.1-1.5); ALKALINE PHOSPHATASE 65 IU/L (46-116); ANION GAP 12 (8-16); ASPARTATE AMINO TRANSFERASE 17 U/L (10-37); BILIRUBIN,TOTAL 0.8 MG/DL (0.1-1.0); BLOOD UREA NITROGEN 50 MG/DL (7-18); BUN/CREATININE RATIO 5.4 (5.4-32.0); CALCIUM 7.8 MG/DL (8.5-10.1); CHLORIDE 101 MMOL/L (99-107); CREATININE 9.26 MG/DL (0.60-1.10); GLUCOSE 79 MG/DL (70-104); POTASSIUM 5.2 MMOL/L (3.5-5.1); SODIUM 137 MMOL/L (135-145); TOTAL CARBON DIOXIDE 23.7 MMOL/L (24-32); TOTAL PROTEIN 8.2 G/DL (6.4-8.2); eGFR 6 ML/MIN
[2019-06-27 05:25] LABS: PLATELET ESTIMATE NORMAL
[2019-06-27 05:26] LABS: LARGE PLATELETS FEW
--- NOTE | 2019-06-27 06:10 | NUR ---
Problems reprioritized. Patient report given, questions answered & plan of care reviewed with RAUDEL Vazquez.
--- NOTE | 2019-06-27 06:15 | NUR ---
Patient in room ICU 2044. I have received report from Daily STARKS and had the opportunity to ask questions and assume patient care.
[2019-06-27] MEDS: heparin, porcine 5000 units/ml vial SQ SCH ×2 (08:13→19:13)
[2019-06-27] MEDS: docusate sod 100mg capsule PO SCH ×3 (08:14→19:15)
[2019-06-27] MEDS: famotidine 20mg tablet PO SCH ×2 (08:14→19:12)
--- NOTE | 2019-06-27 11:05 | NUR ---
Problems reprioritized. Patient report given, questions answered & plan of care reviewed with Connie STARKS.
--- NOTE | 2019-06-27 11:21 | NUR ---
Patient safely delivered to [facility] via wheelchair. All belongings and chart brought with patient, no monitoring tech ordered.
--- NOTE | 2019-06-27 11:56 | NUR ---
Patient in room [facility] 354. I have received report from INGRID STARKS and had the opportunity to ask questions and assume patient care.
[2019-06-27] MEDS: calcium acetate 667mg (PhosLO) capsule PO SCH ×2 (13:22→17:48)
[2019-06-27] MEDS: gabapentin 100mg capsule PO SCH ×2 (15:36→23:34)
--- NOTE | 2019-06-27 17:59 | NUR ---
patient has no complaints. orders in for Dialysis in am. All cares given. Report given to Tea STARKS
--- NOTE | 2019-06-27 18:30 | NUR ---
Patient in room [facility] 354. I have received report from Connie STARKS and had the opportunity to ask questions and assume patient care.
[2019-06-27] MEDS: levetiracetam 250mg tablet PO SCH (19:12)
[2019-06-27] MEDS: methadone 5mg tablet PO PRN (19:14)
[2019-06-27] MEDS: insulin glargine (Lantus) pen - multi-dose SQ SCH (21:00)
[2019-06-27] MEDS: atorvastatin 20mg tablet PO SCH (22:13)
[2019-06-27] MEDS ORDERED: hydrALAZINE 20mg/ml inj. IV PRN (23:50)
[2019-06-28] VITALS: BP 171/79
--- NOTE | 2019-06-28 | NUR ---
Patient had been ambulating in room with oxygen on at this time. He returned to bed and O2 placed vain NC. Respirations came down. Addendum: 06/28/19 at 0200 by Tea Jacobsen RN Amended: Links added.
--- NOTE | 2019-06-28 00:10 | NUR ---
Called MD with regard to patient's elevated BP's. New order for 10mg hydralazine IV q4h prn systolic over 165. aware patient to have dialysis this AM.
[2019-06-28 06:04] LABS: BASOPHILS # (AUTO) 0.1 X10'3 (0-0.2); BASOPHILS % (AUTO) 1.1 % (0-1); EOSINOPHILS # (AUTO) 0.4 X10'3 (0-0.9); EOSINOPHILS % (AUTO) 4.3 % (0-6); HEMATOCRIT 36.2 % (42.0-52.0); HEMOGLOBIN 12.2 g/dl (14.0-17.9); LYMPHOCYTES # (AUTO) 1.8 X10'3 (1.1-4.8); LYMPHOCYTES % (AUTO) 17.2 % (21-51); MEAN CORPUSCULAR HEMOGLOBIN 30.4 PG (27.0-31.0); MEAN CORPUSCULAR HGB CONC 33.8 g/dL (33.0-36.5); MEAN CORPUSCULAR VOLUME 89.9 FL (78-98); MONOCYTES # (AUTO) 1.1 X10'3 (0-0.9); MONOCYTES % (AUTO) 10.3 % (2-12); NEUTROPHILS # (AUTO) 6.9 X10'3 (1.8-7.7); NEUTROPHILS % (AUTO) 67.1 % (42-75); PLATELET COUNT 163 X10'3 (140-440); RED BLOOD COUNT 4.03 X10'6 (4.70-6.10); RED CELL DISTRIBUTION WIDTH 15.2 % (11.5-14.5); WHITE BLOOD COUNT 10.2 X10'3 (4.5-11.0)
[2019-06-28 06:25] LABS: ALANINE AMINOTRANSFERASE 14 U/L (12-78); ALBUMIN/GLOBULIN RATIO 0.7 (1.1-1.5); ALKALINE PHOSPHATASE 64 IU/L (46-116); ANION GAP 17 (8-16); ASPARTATE AMINO TRANSFERASE 18 U/L (10-37); BILIRUBIN,TOTAL 0.5 MG/DL (0.1-1.0); BLOOD UREA NITROGEN 67 MG/DL (7-18); BUN/CREATININE RATIO 6.2 (5.4-32.0); CALCIUM 7.8 MG/DL (8.5-10.1); CHLORIDE 98 MMOL/L (99-107); CREATININE 10.88 MG/DL (0.60-1.10); GLUCOSE 90 MG/DL (70-104); POTASSIUM 5.2 MMOL/L (3.5-5.1); SODIUM 135 MMOL/L (135-145); TOTAL CARBON DIOXIDE 20.5 MMOL/L (24-32); TOTAL PROTEIN 7.4 G/DL (6.4-8.2); eGFR 5 ML/MIN
--- NOTE | 2019-06-28 06:30 | NUR ---
Problems reprioritized. Patient report given, questions answered & plan of care reviewed with Gabriel STARKS and Layne STARKS.
[2019-06-28 07:26] VITALS: BP 180/67
[2019-06-28 07:31] LABS: LARGE PLATELETS FEW; PLATELET ESTIMATE NORMAL
[2019-06-28] MEDS: pantoprazole 40mg Tablet.DR PO SCH (07:36)
[2019-06-28] MEDS: levetiracetam 250mg tablet PO SCH ×2 (07:36→20:44)
[2019-06-28] MEDS: lisinopril 20mg tablet PO SCH (07:37)
[2019-06-28] MEDS: diltiazem CD 180mg cap (once-daily) PO SCH (07:37)
[2019-06-28] MEDS: aspirin 81mg tab.chew PO SCH (07:37)
[2019-06-28] MEDS: metoprolol succinate 25mg (24-HOUR) SR. Tablet PO SCH (07:37)
[2019-06-28] MEDS: famotidine 20mg tablet PO SCH ×2 (07:37→20:44)
[2019-06-28] MEDS: gabapentin 100mg capsule PO SCH (07:37)
[2019-06-28] MEDS: vitamin B comp w/Vit. C tab 1 TAB TABLET PO SCH (07:37)
[2019-06-28] MEDS: docusate sod 100mg capsule PO SCH ×5 (07:38→20:44)
[2019-06-28] MEDS: calcium acetate 667mg (PhosLO) capsule PO SCH ×3 (07:38→18:14)
[2019-06-28] MEDS: methadone 5mg tablet PO SCH (07:38)
[2019-06-28] MEDS: folic acid 1mg tablet PO SCH (07:38)
[2019-06-28] MEDS: amLODIPine 5mg tablet PO SCH (07:38)
[2019-06-28] MEDS: heparin, porcine 5000 units/ml vial SQ SCH ×2 (07:39→20:45)
[2019-06-28] MEDS ORDERED: heparin 1,000unit/ml 10ml vial 10 ML IV ONE (08:00)
[2019-06-28] MEDS ORDERED: heparin 1,000 units/ml 10ml inj HE ONE ×2 (08:00)
[2019-06-28] MEDS ORDERED: normal saline 1000ml 250 ML IV PRN (08:00)
[2019-06-28] MEDS ORDERED: epoetin 20,000 units/ml inj IV ONE (08:00)
[2019-06-28 09:55] VITALS: BP 155/74
[2019-06-28 12:40] VITALS: BP 148/70
[2019-06-28] MEDS ORDERED: lactulose 20gm/30ml cup PO PRN (17:10)
--- NOTE | 2019-06-28 20:30 | NUR ---
Patient room change from Rm 354C to Rm 340b.
[2019-06-28] MEDS: methadone 5mg tablet PO PRN (20:44)
[2019-06-28] MEDS: atorvastatin 20mg tablet PO SCH (20:44)
[2019-06-28 20:54] VITALS: BP 155/66
[2019-06-28] MEDS: insulin glargine (Lantus) pen - multi-dose SQ SCH (21:00)
[2019-06-29] VITALS: BP_SYST 119; BP_SYST 165; BP_DIAS 67; BP_DIAS 70
[2019-06-29 05:22] LABS: BASOPHILS # (AUTO) 0.1 X10'3 (0-0.2); EOSINOPHILS # (AUTO) 0.5 X10'3 (0-0.9); EOSINOPHILS % (AUTO) 4.1 % (0-6); HEMATOCRIT 38.1 % (42.0-52.0); HEMOGLOBIN 13.1 g/dl (14.0-17.9); LYMPHOCYTES # (AUTO) 1.5 X10'3 (1.1-4.8); LYMPHOCYTES % (AUTO) 12.2 % (21-51); MEAN CORPUSCULAR HEMOGLOBIN 30.4 PG (27.0-31.0); MEAN CORPUSCULAR HGB CONC 34.5 g/dL (33.0-36.5); MEAN CORPUSCULAR VOLUME 88.3 FL (78-98); MEAN PLATELET VOLUME 10.9 FL (7.4-10.4); MONOCYTES % (AUTO) 8.3 % (2-12); NEUTROPHILS # (AUTO) 9.1 X10'3 (1.8-7.7); NEUTROPHILS % (AUTO) 74.4 % (42-75); PLATELET COUNT 213 X10'3 (140-440); RED BLOOD COUNT 4.31 X10'6 (4.70-6.10); RED CELL DISTRIBUTION WIDTH 15.2 % (11.5-14.5); WHITE BLOOD COUNT 12.2 X10'3 (4.5-11.0)
[2019-06-29 05:35] LABS: ALANINE AMINOTRANSFERASE 18 U/L (12-78); ALBUMIN 3.5 G/DL (3.4-5.0); ALBUMIN/GLOBULIN RATIO 0.7 (1.1-1.5); ALKALINE PHOSPHATASE 77 IU/L (46-116); ANION GAP 13 (8-16); ASPARTATE AMINO TRANSFERASE 17 U/L (10-37); BILIRUBIN,TOTAL 0.5 MG/DL (0.1-1.0); BLOOD UREA NITROGEN 37 MG/DL (7-18); BUN/CREATININE RATIO 4.8 (5.4-32.0); CALCIUM 8.4 MG/DL (8.5-10.1); CHLORIDE 97 MMOL/L (99-107); CREATININE 7.68 MG/DL (0.60-1.10); GLUCOSE 127 MG/DL (70-104); POTASSIUM 4.9 MMOL/L (3.5-5.1); SODIUM 136 MMOL/L (135-145); TOTAL CARBON DIOXIDE 25.9 MMOL/L (24-32); TOTAL PROTEIN 8.6 G/DL (6.4-8.2); eGFR 7 ML/MIN
--- NOTE | 2019-06-29 06:40 | NUR ---
Problems reprioritized. Patient report given, questions answered & plan of care reviewed with Conchita STARKS.
--- NOTE | 2019-06-29 06:52 | NUR ---
Patient in room [facility] 340. I have received report from RAUDEL Oliver and had the opportunity to ask questions and assume patient care.
[2019-06-29] MEDS: vitamin B comp w/Vit. C tab 1 TAB TABLET PO SCH (07:32)
[2019-06-29] MEDS: pantoprazole 40mg Tablet.DR PO SCH (07:32)
[2019-06-29] MEDS: metoprolol succinate 25mg (24-HOUR) SR. Tablet PO SCH (07:32)
[2019-06-29] MEDS: lisinopril 20mg tablet PO SCH (07:33)
[2019-06-29] MEDS: methadone 5mg tablet PO SCH (07:33)
[2019-06-29] MEDS: folic acid 1mg tablet PO SCH (07:33)
[2019-06-29] MEDS: diltiazem CD 180mg cap (once-daily) PO SCH (07:34)
[2019-06-29] MEDS: famotidine 20mg tablet PO SCH (07:34)
[2019-06-29] MEDS: calcium acetate 667mg (PhosLO) capsule PO SCH ×2 (07:34→12:46)
[2019-06-29] MEDS: aspirin 81mg tab.chew PO SCH (07:34)
[2019-06-29] MEDS: amLODIPine 5mg tablet PO SCH (07:34)
[2019-06-29] MEDS: heparin, porcine 5000 units/ml vial SQ SCH (07:35)
[2019-06-29] MEDS: levetiracetam 250mg tablet PO SCH (07:44)
[2019-06-29] MEDS: docusate sod 100mg capsule PO SCH ×2 (07:47→08:00)
[2019-06-29 07:54] VITALS: BP 158/78
[2019-06-29] MEDS ORDERED: gabapentin 100mg capsule PO SCH (08:00)
--- NOTE | 2019-06-29 09:39 | NUR ---
Pt is not producing urine. Addendum: 06/29/19 at 0942 by Conchita Krishna RN Amended: Links added.
[2019-06-29 09:46] LABS: LARGE PLATELETS FEW; PLATELET ESTIMATE NORMAL
[2019-06-29 11:00] VITALS: BP 169/66
--- NOTE | 2019-06-29 13:50 | NUR ---
Pt D/C'd home in table conditions. Discharge and medication instructions given to pt, also diabetes and wound care education given. PIV removed intact. wound pic taken. Pt let the hospital accompanied by simin noyola.
--- NOTE | 2019-07-03 09:35 | NUR ---
Case Management DC follow up: unable to contact/no answer phone not set up for vm Addendum: 07/03/19 at 0942 by Alexandra Aden RN Case Management DC follow up: spoke to pt spouse/Eboni via telephone/pt rtnd call. pt in dialysis at this time. states pt is doing fine, "back to baseline". Denies pt has experienced: CP, emergent general pain, emergent SOB, respiratory distress, NV, dizziness, syncope episodes, abd pain, CLARK, blurry vision. Verbalizes understanding of medications and why prescribed, has "missed some, but getting back to routine". no ase noted r/t polypharmacy/new meds. verbalizes understanding of s/s that would warrant 9-11/ER visit for evaluation. Acknowledges importance of scheduling/keeping appointments w/PCP/Nilda Tillman/referrals/specialists/wound care for foot in [facility] 07/04/2019. Needs met, questions answered at AL. No further questions at this time.
== END 2019-06-29 13:18 | disposition home or self-care (01) | DRG 640 ==
LOC: ER 16:26 → ED HOLD 17:42 → ICU 2S 19:28 → SUR 3N 06-27 11:14
PROC: 5A1D70Z Performance of Urinary Filtration, Intermittent, Less than 6 Hours Per Day (ICD-10-PCS; 2019-06-26)
PROC: 5A1D70Z Performance of Urinary Filtration, Intermittent, Less than 6 Hours Per Day (ICD-10-PCS; principal; 2019-06-28)
DX: E87.70 Fluid overload, unspecified (principal); N18.6 End stage renal disease; I12.0 Hypertensive chronic kidney disease with stage 5 chronic kidney disease or end stage renal disease; N17.9 Acute kidney failure, unspecified; E11.621 Type 2 diabetes mellitus with foot ulcer; L97.519 Non-pressure chronic ulcer of other part of right foot with unspecified severity; E87.5 Hyperkalemia; E11.22 Type 2 diabetes mellitus with diabetic chronic kidney disease; Z83.3 Family history of diabetes mellitus; Z99.2 Dependence on renal dialysis; Z91.14 Patient's other noncompliance with medication regimen; Z79.899 Other long term (current) drug therapy; Z79.4 Long term (current) use of insulin; Z79.82 Long term (current) use of aspirin
CPT/HCPCS: 36415; 71045; 80053; 82948; 83036; 83735; 84100; 85025; 85027; 87081; 93005; 99291; G0257; G0378; J0360; J1644; J1815

== ENCOUNTER 2020-01-08 16:29 | Emergency (ER) | payer MEDICARE, MEDICAID ==
[~2020-01-08] VITALS: Ht 167.6 cm; Wt 81.0 kg
[~2020-01-08 16:29] MED LIST changes: -ALBU2.5V12 NEB; +AMLO10TA PO; -ATR0.5NEB IH; -COL100C PO; +DOCU100C40 PO; +FOLI1CAP7 PO; -GABA-530 PO; +GABA100C PO; -HYDR-4353 PO; -INSU100I8 SQ; -INSU100V9 SQ; -LATA2.5D2 EACHEYE; +LEVE500T PO; +METH5TAB2 PO; -MIDO2.5T14 PO; -NYST30CR2 TP; -ONDA4TAB12 PO; -POLY17PO10 PO; -VIT1TABL50 PO
--- NOTE | 2020-01-08 17:45 | NUR ---
Antonio BARNARD AT BEDSIDE, PT C/O SOB AFTER HAVING DIALYSIS TODAY, PT IS 88 TO 92% ON ROOM AIR, PLACED PT ON 2LITERS SAT INCREASED TO 95%
[2020-01-08 18:16] LABS: BASOPHILS # (AUTO) 0.1 X10'3 (0-0.2); BASOPHILS % (AUTO) 0.4 % (0-1); EOSINOPHILS # (AUTO) 0.2 X10'3 (0-0.9); EOSINOPHILS % (AUTO) 1.6 % (0-6); HEMATOCRIT 42.7 % (42.0-52.0); HEMOGLOBIN 14.4 g/dl (14.0-17.9); LYMPHOCYTES # (AUTO) 0.3 X10'3 (1.1-4.8); LYMPHOCYTES % (AUTO) 2.6 % (21-51); MEAN CORPUSCULAR HEMOGLOBIN 31.4 PG (27.0-31.0); MEAN CORPUSCULAR HGB CONC 33.7 g/dL (33.0-36.5); MEAN CORPUSCULAR VOLUME 93.2 FL (78-98); MEAN PLATELET VOLUME 10.2 FL (7.4-10.4); MONOCYTES # (AUTO) 0.9 X10'3 (0-0.9); MONOCYTES % (AUTO) 7.5 % (2-12); NEUTROPHILS # (AUTO) 10.7 X10'3 (1.8-7.7); NEUTROPHILS % (AUTO) 87.9 % (42-75); PLATELET COUNT 167 X10'3 (140-440); RED BLOOD COUNT 4.59 X10'6 (4.70-6.10); RED CELL DISTRIBUTION WIDTH 13.3 % (11.5-14.5); WHITE BLOOD COUNT 12.2 X10'3 (4.5-11.0)
[2020-01-08 18:36] LABS: ABG HCO3 21.6 mmol/L (22.0-26.0); ABG OXYGEN SATURATION 88.4 % (94-97); ABG PCO2 (T) 34.2 mmHg (35.0-48.0); ABG PO2 (T) 55.3 mmHg (75.0-100.0); ALLEN'S TEST POSITIVE; FCOHb 1.4 % (0.0-3.9); FMetHb 0.3 % (0.0-1.5); FO2Hb 86.9 % (94-97); PATIENT TEMPERATURE 37.2; TOTAL HEMOGLOBIN 14.8 G/dl (14.0-18.0)
--- NOTE | 2020-01-08 18:41 | NUR ---
MARISEL, [facility] . PLEASE CALL MARISEL WHEN WE FIND OUT INFO ON THANH. HE WILL BE GIVING THANH A RIDE HOME.
[2020-01-08 18:48] LABS: ALANINE AMINOTRANSFERASE 41 U/L (12-78); ALBUMIN 3.5 G/DL (3.4-5.0); ALBUMIN/GLOBULIN RATIO 0.8 (1.1-1.5); ALKALINE PHOSPHATASE 104 IU/L (46-116); ANION GAP 10 (8-16); ASPARTATE AMINO TRANSFERASE 32 U/L (10-37); BILIRUBIN,TOTAL 0.4 MG/DL (0.1-1.0); BLOOD UREA NITROGEN 27 MG/DL (7-18); BUN/CREATININE RATIO 3.8 (5.4-32.0); CALCIUM 8.3 MG/DL (8.5-10.1); CHLORIDE 98 MMOL/L (99-107); CREATININE 7.14 MG/DL (0.60-1.10); GLUCOSE 133 MG/DL (70-104); POTASSIUM 4.2 MMOL/L (3.5-5.1); SODIUM 136 MMOL/L (135-145); TOTAL CARBON DIOXIDE 28.5 MMOL/L (24-32); eGFR 8 ML/MIN
[2020-01-08 19:14] VITALS: BP 128/59
== END 2020-01-08 19:17 | disposition home or self-care (01) ==
LOC: ER 16:30
DX: R06.02 Shortness of breath (principal); I12.0 Hypertensive chronic kidney disease with stage 5 chronic kidney disease or end stage renal disease; N18.6 End stage renal disease; E11.22 Type 2 diabetes mellitus with diabetic chronic kidney disease; Z86.69 Personal history of other diseases of the nervous system and sense organs; Z79.82 Long term (current) use of aspirin; Z79.899 Other long term (current) drug therapy
CPT/HCPCS: 36415; 36600; 71045; 80053; 82140; 82803; 83880; 84484; 85018; 85025; 93005; 99285

== ENCOUNTER 2020-03-27 17:36 | Emergency (ER) | payer MEDICARE, MEDICAID ==
[~2020-03-27] VITALS: Ht 167.6 cm; Wt 81.8 kg
[2020-03-27 17:40] VITALS: BP 190/81
[2020-03-27 18:51] LABS: BASOPHILS # (AUTO) 0.1 X10'3 (0-0.2); BASOPHILS % (AUTO) 0.6 % (0-1); EOSINOPHILS % (AUTO) 0.1 % (0-6); HEMATOCRIT 43.5 % (42.0-52.0); HEMOGLOBIN 14.7 g/dl (14.0-17.9); LYMPHOCYTES # (AUTO) 0.8 X10'3 (1.1-4.8); LYMPHOCYTES % (AUTO) 7.4 % (21-51); MEAN CORPUSCULAR HEMOGLOBIN 30.8 PG (27.0-31.0); MEAN CORPUSCULAR HGB CONC 33.8 g/dL (33.0-36.5); MEAN CORPUSCULAR VOLUME 91.2 FL (78-98); MEAN PLATELET VOLUME 10.1 FL (7.4-10.4); MONOCYTES # (AUTO) 0.4 X10'3 (0-0.9); MONOCYTES % (AUTO) 3.5 % (2-12); NEUTROPHILS # (AUTO) 10.2 X10'3 (1.8-7.7); NEUTROPHILS % (AUTO) 88.4 % (42-75); PLATELET COUNT 216 X10'3 (140-440); RED BLOOD COUNT 4.77 X10'6 (4.70-6.10); RED CELL DISTRIBUTION WIDTH 13.1 % (11.5-14.5); WHITE BLOOD COUNT 11.5 X10'3 (4.5-11.0)
[2020-03-27 19:17] LABS: ALANINE AMINOTRANSFERASE 32 U/L (12-78); ALBUMIN 4.1 G/DL (3.4-5.0); ALBUMIN/GLOBULIN RATIO 0.9 (1.1-1.5); ALKALINE PHOSPHATASE 75 IU/L (46-116); ANION GAP 14 (8-16); ASPARTATE AMINO TRANSFERASE 38 U/L (10-37); BILIRUBIN,TOTAL 0.7 MG/DL (0.1-1.0); BLOOD UREA NITROGEN 18 MG/DL (7-18); CALCIUM 9.4 MG/DL (8.5-10.1); CHLORIDE 97 MMOL/L (99-107); CREATININE 6.04 MG/DL (0.60-1.10); GLUCOSE 104 MG/DL (70-104); LIPASE 61 U/L (73-393); POTASSIUM 4.3 MMOL/L (3.5-5.1); SODIUM 139 MMOL/L (135-145); TOTAL CARBON DIOXIDE 27.6 MMOL/L (24-32); TOTAL PROTEIN 8.9 G/DL (6.4-8.2); eGFR 10 ML/MIN
== END 2020-03-27 22:19 | disposition left against medical advice (07) ==
LOC: ER 17:36
DX: R10.84 Generalized abdominal pain (principal); Z53.21 Procedure and treatment not carried out due to patient leaving prior to being seen by health care provider
CPT/HCPCS: 36415; 80053; 83690; 85025; 99283

== ENCOUNTER 2020-05-16 08:30 | Day surgery (SDC) | payer MEDICARE, MEDICAID ==
[~2020-05-16] VITALS: Ht 167.6 cm; Wt 78.3 kg
[~2020-05-16 08:30] MED LIST changes: +LISI40TA13 PO; -LISI40TA4 PO
[2020-05-16 10:00] VITALS: BP 174/94
== END 2020-05-16 10:00 | disposition home or self-care (01) ==
LOC: SSTAY O 08:30
PROVIDERS: ATTEND Radiology Diagnostic Radiology
DX: E11.22 Type 2 diabetes mellitus with diabetic chronic kidney disease (principal); I12.0 Hypertensive chronic kidney disease with stage 5 chronic kidney disease or end stage renal disease; N18.6 End stage renal disease; Z83.3 Family history of diabetes mellitus; Z79.899 Other long term (current) drug therapy; Z53.8 Procedure and treatment not carried out for other reasons; Z79.82 Long term (current) use of aspirin

== ENCOUNTER 2021-06-04 14:42 | Emergency (ER) | payer MEDICARE, MEDICAID ==
[~2021-06-04] VITALS: Ht 167.6 cm; Wt 85.0 kg
[~2021-06-04 14:42] MED LIST changes: +BUPR1FIL5 SL; +CLON1PAT16 TD; -DILT180C53 PO; -FOLI1CAP7 PO; -FOLI1TAB16 PO; +FOLI1TAB27 PO; +FURO-150 PO; -GABA100C PO; +HYDR-4069 PO; -LEVE500T PO; -LISI40TA13 PO; +LOSA100T57 PO; -METH5TAB2 PO; -METO50TA7 PO; +OMEP20CA15 PO; -OMEP20TA23 PO; -PHO667C PO; +POLY119P2 PO; +VIT1TABL48 PO
[2021-06-04 17:16] LABS: BASOPHILS # (AUTO) 0.1 X10'3 (0-0.2); EOSINOPHILS # (AUTO) 0.1 X10'3 (0-0.9); EOSINOPHILS % (AUTO) 0.6 % (0-6); HEMOGLOBIN 13.2 g/dl (14.0-17.9); LYMPHOCYTES # (AUTO) 1.3 X10'3 (1.1-4.8); LYMPHOCYTES % (AUTO) 10.6 % (21-51); MEAN CORPUSCULAR VOLUME 87.9 FL (78-98); MONOCYTES # (AUTO) 0.8 X10'3 (0-0.9); NEUTROPHILS # (AUTO) 9.8 X10'3 (1.8-7.7); NEUTROPHILS % (AUTO) 80.8 % (42-75); PLATELET COUNT 252 X10'3 (140-440); RED BLOOD COUNT 4.55 X10'6 (4.70-6.10); RED CELL DISTRIBUTION WIDTH 14.5 % (11.5-14.5); WHITE BLOOD COUNT 12.1 X10'3 (4.5-11.0)
[2021-06-04 17:41] LABS: ALANINE AMINOTRANSFERASE 22 U/L (12-78); ALBUMIN 3.7 G/DL (3.4-5.0); ALBUMIN/GLOBULIN RATIO 0.9 (1.1-1.5); ALKALINE PHOSPHATASE 80 IU/L (46-116); ANION GAP 12 (8-16); ASPARTATE AMINO TRANSFERASE 30 U/L (10-37); BILIRUBIN,TOTAL 0.5 MG/DL (0.1-1.0); BLOOD UREA NITROGEN 24 MG/DL (7-18); BUN/CREATININE RATIO 3.4 (5.4-32.0); CALCIUM 9.1 MG/DL (8.5-10.1); CHLORIDE 99 MMOL/L (99-107); CREATININE 7.03 MG/DL (0.60-1.10); GLUCOSE 100 MG/DL (70-104); POTASSIUM 4.8 MMOL/L (3.5-5.1); SODIUM 140 MMOL/L (135-145); TOTAL CARBON DIOXIDE 28.9 MMOL/L (24-32); TOTAL PROTEIN 7.8 G/DL (6.4-8.2); eGFR 8 ML/MIN
[2021-06-04] MEDS ORDERED: naloxone 2mg/2ml inj IV STA (18:10)
--- NOTE | 2021-06-04 18:59 | NUR ---
PT NOW ORIENTED X4 BUT STILL CHANGSY POST CARLOS ADMIN
[2021-06-04 19:30] VITALS: BP 177/72
== END 2021-06-04 21:49 | disposition home or self-care (01) ==
LOC: ER 14:43
DX: R41.82 Altered mental status, unspecified (principal); R53.1 Weakness; R51.9 Headache, unspecified; I12.0 Hypertensive chronic kidney disease with stage 5 chronic kidney disease or end stage renal disease; E11.22 Type 2 diabetes mellitus with diabetic chronic kidney disease; N18.6 End stage renal disease; Z99.2 Dependence on renal dialysis; Z86.69 Personal history of other diseases of the nervous system and sense organs; Z79.82 Long term (current) use of aspirin; Z79.899 Other long term (current) drug therapy
CPT/HCPCS: 36415; 70450; 80053; 85025; 93005; 96374; 99285; J2310

== ENCOUNTER 2022-08-03 11:05 | Emergency (ER) | payer MEDICARE, MEDICAID ==
[~2022-08-03] VITALS: Ht 167.6 cm; Wt 86.4 kg
[2022-08-03] MEDS ORDERED: ipratropium/albuterol 3ml nebule NEB STA (11:39)
[2022-08-03 11:55] LABS: BASOPHILS # (AUTO) 0.1 X10'3 (0-0.2); BASOPHILS % (AUTO) 0.6 % (0-1); EOSINOPHILS # (AUTO) 0.4 X10'3 (0-0.9); EOSINOPHILS % (AUTO) 3.3 % (0-6); HEMATOCRIT 35.1 % (42.0-52.0); HEMOGLOBIN 11.6 g/dl (14.0-17.9); LYMPHOCYTES # (AUTO) 0.8 X10'3 (1.1-4.8); MEAN CORPUSCULAR HEMOGLOBIN 30.2 PG (27.0-31.0); MEAN CORPUSCULAR VOLUME 91.7 FL (78-98); MEAN PLATELET VOLUME 9.9 FL (7.4-10.4); MONOCYTES # (AUTO) 1.1 X10'3 (0-0.9); MONOCYTES % (AUTO) 7.8 % (2-12); NEUTROPHILS # (AUTO) 11.1 X10'3 (1.8-7.7); NEUTROPHILS % (AUTO) 82.3 % (42-75); PLATELET COUNT 169 X10'3 (140-440); RED BLOOD COUNT 3.83 X10'6 (4.70-6.10); RED CELL DISTRIBUTION WIDTH 14.2 % (11.5-14.5); WHITE BLOOD COUNT 13.5 X10'3 (4.5-11.0)
[2022-08-03] MEDS ORDERED: albuterol 2.5 MG/3 ML nebule NEB ONE ×2 (11:57→22:50)
[2022-08-03 12:08] LABS: ALANINE AMINOTRANSFERASE 34 U/L (12-78); ALBUMIN 3.4 G/DL (3.4-5.0); ALBUMIN/GLOBULIN RATIO 0.8 (1.1-1.5); ALKALINE PHOSPHATASE 147 IU/L (46-116); ASPARTATE AMINO TRANSFERASE 26 U/L (10-37); BILIRUBIN,TOTAL 0.5 MG/DL (0.1-1.0); CALCIUM 8.2 MG/DL (8.5-10.1); CHLORIDE 100 MMOL/L (99-107); CREATININE 11.54 MG/DL (0.60-1.10); GLUCOSE 110 MG/DL (70-104); TOTAL CARBON DIOXIDE 25.1 MMOL/L (24-32); TOTAL PROTEIN 7.8 G/DL (6.4-8.2); eGFR 5 ML/MIN
[2022-08-03 12:19] LABS: POTASSIUM 7.4 MMOL/L (3.5-5.1)
[2022-08-03 12:20] LABS: ANION GAP 15 (8-16); BLOOD UREA NITROGEN 78 MG/DL (7-18); BUN/CREATININE RATIO 6.8 (10.0-20.0); SODIUM 140 MMOL/L (135-145)
[2022-08-03] MEDS ORDERED: dextrose 50%-water 50ml dispensing syringe IV ONE ×2 (12:25→22:50)
[2022-08-03] MEDS ORDERED: calcium gluconate inj. 1 GM in normal saline 100ml IV soln 100 ML IV ONE (12:25)
[2022-08-03] MEDS ORDERED: insulin regular, human U-100 3ml vial - multi-dose IV ONE (12:25)
[2022-08-03] MEDS ORDERED: sodium polystyrene sulfonate 15gm/60ml oral suspension PO ONE (12:25)
[2022-08-03] MEDS ORDERED: sodium bicarbonate (8.4%) inj. 1 MEQ/ML ML IV ONE (12:25)
[2022-08-03] MEDS ORDERED: CALCIUM GLUC 1gm/50ml NACL,iso 50 ML IV ONE (12:29)
[2022-08-03] MEDS ORDERED: CefTRIAXone/D5W-Rocephin 1gm 50 ML IV ONE (14:25)
[2022-08-03] MEDS ORDERED: azithromycin/NS 500mg/250ml 250 ML IV ONE (14:26)
--- NOTE | 2022-08-03 16:00 | NUR ---
Unable to collect urine sample; Pt is dialysis pt and states he does not produce urine
[2022-08-03] MEDS ORDERED: acetaminophen 325mg tablet PO ONE (18:55)
[2022-08-03 22:13] LABS: ALANINE AMINOTRANSFERASE 37 U/L (12-78); ALBUMIN 3.2 G/DL (3.4-5.0); ALBUMIN/GLOBULIN RATIO 0.7 (1.1-1.5); ALKALINE PHOSPHATASE 126 IU/L (46-116); ANION GAP 16 (8-16); ASPARTATE AMINO TRANSFERASE 32 U/L (10-37); BILIRUBIN,TOTAL 0.5 MG/DL (0.1-1.0); BLOOD UREA NITROGEN 85 MG/DL (7-18); BUN/CREATININE RATIO 6.7 (10.0-20.0); CALCIUM 8.2 MG/DL (8.5-10.1); CHLORIDE 101 MMOL/L (99-107); CREATININE 12.64 MG/DL (0.60-1.10); GLUCOSE 92 MG/DL (70-104); SODIUM 142 MMOL/L (135-145); TOTAL CARBON DIOXIDE 25.3 MMOL/L (24-32); TOTAL PROTEIN 7.5 G/DL (6.4-8.2); eGFR 4 ML/MIN
[2022-08-03 22:35] LABS: POTASSIUM 7.4 MMOL/L (3.5-5.1)
[2022-08-03] MEDS ORDERED: insulin regular, human 10 units/0.1 ml syringe IV ONE (22:50)
[2022-08-03] MEDS ORDERED: calcium chloride 100 MG/1 ML inj IV ONE (22:50)
--- NOTE | 2022-08-03 23:00 | NUR ---
Pt assisted up to bathroom by ED staff; Pt states he did not tell the staff who assisted him up to bathroom that he is on continuous O2; Pt states he was asked if he could walk to bathroom and he said yes; Upon returning to room, ED RN Jhoana noted pt to be sob and O2 sat dropping; Pt immediately reconnected to O2 NC upon being escorted back to room; NRB applied temporarily to help with work of breathing while making pt comfortable in bed and reconnecting cardiac monitoring equipment; Pt O2 sat in 90s upon reapplicaton of supplemental O2; aware
--- NOTE | 2022-08-03 23:15 | NUR ---
RT to pt bedside at this time
--- NOTE | 2022-08-04 01:21 | NUR ---
pt paolaabebe [phone]
--- NOTE | 2022-08-04 01:28 | NUR ---
Report given to RAUDEL Ely
--- NOTE | 2022-08-04 01:30 | NUR ---
Assumed care of pt. after recieving report from Winsome STARKS. Pt. appears to be resting quietly in ED rfrederick without distress. BiPap in place on pt.
--- NOTE | 2022-08-04 02:24 | NUR ---
DR Kaur did not want a post Bipap ABG
--- NOTE | 2022-08-04 04:56 | NUR ---
0425 Rec'd pt from Thong RN, Tx'd to bed 16 via gurney with RT assist for BiPAP, without incident, provided BSC for BM 0440 Returned to bed, placed on all monitors 0500 Requesting food and drink, OKd by Dr. Kaur, provided 8oz glass of water, milk carton and sandwich
[2022-08-04] MEDS ORDERED: CALCIUM GLUC 1gm/50ml NACL,iso 50 ML IV ONE (06:05)
--- NOTE | 2022-08-04 06:26 | NUR ---
Patient stated that his last hemodialysis was Wednesday at [facility]
--- NOTE | 2022-08-04 07:47 | NUR ---
Called pharmacy about delivering Lokelma packet for this patient fito
[2022-08-04 07:59] LABS: ALBUMIN 3.2 G/DL (3.4-5.0); ANION GAP 20 (8-16); BLOOD UREA NITROGEN 94 MG/DL (7-18); BUN/CREATININE RATIO 7.1 (10.0-20.0); CALCIUM 8.7 MG/DL (8.5-10.1); CHLORIDE 99 MMOL/L (99-107); CREATININE 13.24 MG/DL (0.60-1.10); GLUCOSE 143 MG/DL (70-104); SODIUM 141 MMOL/L (135-145); TOTAL CARBON DIOXIDE 21.6 MMOL/L (24-32); eGFR 4 ML/MIN
[2022-08-04] MEDS ORDERED: SODIUM ZIRCONIUM CYCLOSILICATE 10 GM POWD.PACK PO SCH (08:00)
[2022-08-04] MEDS ORDERED: furosemide 40mg/4ml inj IV SCH (08:00)
[2022-08-04 08:03] LABS: POTASSIUM 7.2 MMOL/L (3.5-5.1)
--- NOTE | 2022-08-04 08:25 | NUR ---
Repeat K was 7.[address] Feldman aware of this. Welder Helper Alison working on coordinating transfer patient to another hospital for hemodialysis and continuation of care
--- NOTE | 2022-08-04 08:38 | NUR ---
Eboni called, gave an update about patient condition. aware that we are looking for a hospital that will accept patient to do the hemodialysis for this patient
[2022-08-04] MEDS ORDERED: albuterol 2.5 MG/3 ML nebule CONTNEB STA (08:41)
[2022-08-04] MEDS ORDERED: sodium bicarbonate (8.4%) inj. 1 MEQ/ML ML IV ONE (08:45)
[2022-08-04] MEDS ORDERED: dextrose 50%-water 50ml dispensing syringe IV ONE (08:45)
[2022-08-04] MEDS ORDERED: CALCIUM GLUC 1gm/50ml NACL,iso 50 ML IV PRN (08:45)
[2022-08-04] MEDS ORDERED: sodium polystyrene sulfonate 15gm/60ml oral suspension PO ONE (08:45)
[2022-08-04] MEDS ORDERED: insulin regular, human 10 units/0.1 ml syringe IV ONE (08:45)
--- NOTE | 2022-08-04 08:53 | NUR ---
Spoke to Izabel RN at [facility] over the phone, report given
--- NOTE | 2022-08-04 09:39 | NUR ---
Per Dr. Last, no need to give the ordered Kayexalate since patient already got his morning dose of sodium zirconium cyclosilicate powder.
[2022-08-04 13:03] LABS: ALBUMIN 3.2 G/DL (3.4-5.0); ANION GAP 18 (8-16); BLOOD UREA NITROGEN 96 MG/DL (7-18); CALCIUM 8.8 MG/DL (8.5-10.1); CHLORIDE 99 MMOL/L (99-107); CREATININE 13.68 MG/DL (0.60-1.10); GLUCOSE 89 MG/DL (70-104); POTASSIUM 5.7 MMOL/L (3.5-5.1); SODIUM 142 MMOL/L (135-145); TOTAL CARBON DIOXIDE 24.9 MMOL/L (24-32); eGFR 4 ML/MIN
[2022-08-04 15:13] VITALS: BP 164/73
--- NOTE | 2022-08-04 15:15 | NUR ---
Hands off report given to EMS at bedside. Attempting to give report to the nurse at [facility].
--- NOTE | 2022-08-04 15:22 | NUR ---
Report given to RAUDEL Cortez at [facility]
== END 2022-08-04 15:34 | disposition short-term general hospital (02) ==
LOC: ER 11:06
DX: E87.6 Hypokalemia (principal); Z20.822 Contact with and (suspected) exposure to COVID-19; R06.02 Shortness of breath
CPT/HCPCS: 36415; 71045; 80048; 80053; 82948; 83605; 84145; 85025; 85610; 87502; 87503; 87811; 93005; 94640; 94644; 94660; 96365; 96367; 96368; 96375; 96376; 99285; J0456; J0610; J0696; J1815; J1940; J3490; 94760; A4615

== ENCOUNTER 2024-01-17 22:39 | Inpatient (IN) | payer MEDICARE, OTHER ==
[~2024-01-17] VITALS: Ht 154.9 cm; Wt 81.8 kg
[~2024-01-17 22:39] MED LIST changes: +ALBU17AE26; -CLON1PAT16 TD; -DOCU100C40 PO; -HYDR-4069 PO; +HYDR25TA90 PO; -LOSA100T57 PO; +LOSA100T58 PO; +OMEG100037 PO; +OMEP20CA16 PO; -POLY119P2 PO; -PRAV80TA3 PO
[2024-01-17 22:56] VITALS: PULSE 64; RESP 13; O2SAT 97
[2024-01-18] VITALS (20 sets, daily range): BP systolic 123–164; BP diastolic 39–102; PULSE 61–79; RESP 8–18; TEMP 97.3–98.5; O2SAT 94–99
[2024-01-18 00:11] LABS: BASOPHILS % (AUTO) 0 % (0-1); EOSINOPHILS % (AUTO) 0.1 % (0-6); HEMATOCRIT 34.4 % (42.0-52.0); HEMOGLOBIN 11.3 g/dl (14.0-17.9); LYMPHOCYTES # (AUTO) 0.5 X10'3 (1.1-4.8); LYMPHOCYTES % (AUTO) 2.9 % (21-51); MEAN CORPUSCULAR HEMOGLOBIN 31.2 PG (27.0-31.0); MEAN CORPUSCULAR VOLUME 94.7 FL (78-98); MEAN PLATELET VOLUME 8.8 FL (7.4-10.4); MONOCYTES # (AUTO) 0.6 X10'3 (0-0.9); MONOCYTES % (AUTO) 3.3 % (2-12); NEUTROPHILS # (AUTO) 16.7 X10'3 (1.8-7.7); NEUTROPHILS % (AUTO) 93.7 % (42-75); PLATELET COUNT 205 X10'3 (140-440); RED BLOOD COUNT 3.63 X10'6 (4.70-6.10); RED CELL DISTRIBUTION WIDTH 14.2 % (11.5-14.5); WHITE BLOOD COUNT 17.8 X10'3 (4.5-11.0)
[2024-01-18 00:16] LABS: ALBUMIN 2.7 G/DL (3.4-5.0); ANION GAP 11 (8-16); BLOOD UREA NITROGEN 23 MG/DL (7-18); CALCIUM 8.8 MG/DL (8.5-10.1); CHLORIDE 94 MMOL/L (99-107); CREATININE 5.68 MG/DL (0.60-1.10); GLUCOSE 160 MG/DL (70-104); POTASSIUM 3.4 MMOL/L (3.5-5.1); SODIUM 135 MMOL/L (135-145); TOTAL CARBON DIOXIDE 30.3 MMOL/L (24-32); eCRCL 10 ML/MIN; eGFR 10 ML/MIN
[2024-01-18] MEDS ORDERED: mag hydrox/Alum hydrox/simeth 30ml oral suspension PO PRN (00:20)
[2024-01-18] MEDS ORDERED: magnesium sulf-water 2g/50mL 50 ML IV PRN (00:20)
[2024-01-18] MEDS ORDERED: magnesium Cl slow-release 64mg tablet PO PRN (00:20)
[2024-01-18] MEDS ORDERED: ondansetron/PF 4mg/2ml inj IV PRN (00:20)
[2024-01-18] MEDS ORDERED: magnesium sulf-water 4G/100mL 100 ML IV PRN (00:20)
[2024-01-18] MEDS ORDERED: potassium Cl 20 mEq SR tablet PO PRN ×2 (00:20)
[2024-01-18] MEDS ORDERED: potassium Cl 40MEQ/1/2NS 520ml 520 ML IV PRN (00:20)
[2024-01-18] MEDS ORDERED: magnesium hydroxide 30ml (MOM) UD suspension PO PRN (00:20)
[2024-01-18] MEDS: PERFLUTREN PROTEIN-A MICROSPHR (Optison) 0.22 MG/ML 3ML VIAL IV ONE (00:30)
[2024-01-18] MEDS: normal saline 1000ml 1,000 ML IV SCH (00:35)
[2024-01-18] MEDS ORDERED: hydrALAZINE 20mg/ml inj. IV ONE (02:50)
[2024-01-18] MEDS: niCARDipine-NS 40mg/200ml IVPB 200 ML IV SCH ×2 (02:55→04:20)
[2024-01-18] MEDS ORDERED: vancomycin/NS 1 GM ADD-VANTAGE 250 ML IV PRN (03:40)
[2024-01-18] MEDS ORDERED: DEXTROSE 15 GM of carb/4 tabs (each vial/BOTTLE has 4 tablets) PO PRN ×2 (03:45)
[2024-01-18] MEDS ORDERED: glucagon, human recombinant 1mg kit SUBCUT PRN (03:45)
[2024-01-18] MEDS ORDERED: dextrose 50%-water 50ml dispensing syringe IV PRN ×2 (03:45)
[2024-01-18 03:59] LABS: ABG BASE EXCESS 4.5 mmol/L (-2.0-3.0); ABG HCO3 29.7 mmol/L (21.0-28.0); ABG OXYGEN SATURATION 95.3 % (94.0-98.0); ABG PCO2 (T) 46.4 mmHg (35.0-48.0); ABG PH (T) 7.423 (7.350-7.450); ABG PO2 (T) 75.2 mmHg (83.0-108.0); FCOHb 1.2 % (0.5-1.5); FHHb 4.6 % (0.0-5.0); FMetHb 0.3 % (0.0-1.5); FO2Hb 93.9 % (94.0-98.0); MODE MASK - BIPAP; PATIENT TEMPERATURE 36.9; RESPIRATORY RATE 12 b/min; TOTAL HEMOGLOBIN 12.2 G/dl (13.5-17.5)
[2024-01-18] MEDS ORDERED: cefepime 1GM/NS ADD-VANTAGE 100 ML IV SCH (04:00)
[2024-01-18 04:18] LABS: MAGNESIUM 1.8 MG/DL (1.5-2.4); POTASSIUM 3.5 MMOL/L (3.5-5.1); PRO BRAIN NATRIURETIC PEPTIDE 29961 PG/ML (0-125)
[2024-01-18] MEDS: morphine 2 MG/ML inj. syringe IV PRN (04:39)
[2024-01-18] MEDS: methylPREDNISolone sod succ/PF 40mg inj. IV SCH (04:40)
[2024-01-18] MEDS: cefepime 2g/NS 100ml ADVANTAGE 100 ML IV SCH (04:43)
[2024-01-18] MEDS: vancomycin/NS 1 GM ADD-VANTAGE 250 ML IV ONE ×2 (04:45→16:45)
[2024-01-18] MEDS ORDERED: pantoprazole 40 MG vial IV SCH (08:00)
[2024-01-18] MEDS: docusate sod 100mg capsule PO SCH (08:00)
[2024-01-18] MEDS: K and/or MAG REPLACEMENT MC SCH (08:00)
[2024-01-18] MEDS: pantoprazole 40 MG vial IV SCH (08:52)
[2024-01-18] MEDS: heparin, porcine 5000 units/ml vial SQ SCH (08:56)
[2024-01-18 09:08] LABS: VANCOMYCIN,RANDOM 0.4 ug/mL (20.0-30.0)
[2024-01-18] MEDS: magnesium oxide 400mg tablet PO SCH (12:32)
[2024-01-18 13:18] LABS: ALANINE AMINOTRANSFERASE 13 U/L (12-78); ALBUMIN 2.7 G/DL (3.4-5.0); ALBUMIN/GLOBULIN RATIO 0.6 (1.1-1.5); ALKALINE PHOSPHATASE 64 IU/L (46-116); ASPARTATE AMINO TRANSFERASE 20 U/L (10-37); BILIRUBIN,DIRECT 0.2 MG/DL (0-0.3); BILIRUBIN,TOTAL 0.5 MG/DL (0.1-1.0); TOTAL PROTEIN 6.9 G/DL (6.4-8.2)
[2024-01-18] MEDS ORDERED: non-formulary drug (Omeprazole 1 CAP) PO SCH (20:00)
[2024-01-18] MEDS: hydrALAZINE 25 MG tablet PO SCH (20:17)
[2024-01-18] MEDS: buprenorphine/naloxone 2-0.5mg sublingual tablet SL SCH (21:27)
[2024-01-18] MEDS: diphenhydrAMINE 25mg capsule PO ONE (22:38)
[2024-01-19] VITALS (17 sets, daily range): BP systolic 109–192; BP diastolic 34–86; PULSE 51–69; RESP 12–25; TEMP 97.5–98.2; O2SAT 94–100
[2024-01-19] MEDS: diphenhydrAMINE 50 mg/ml inj IV ONE (04:01)
[2024-01-19 07:14] LABS: BASOPHILS % (AUTO) 0.3 % (0-1); EOSINOPHILS # (AUTO) 0.1 X10'3 (0-0.9); EOSINOPHILS % (AUTO) 0.7 % (0-6); HEMATOCRIT 31.1 % (42.0-52.0); HEMOGLOBIN 10.2 g/dl (14.0-17.9); LYMPHOCYTES # (AUTO) 0.7 X10'3 (1.1-4.8); LYMPHOCYTES % (AUTO) 4.7 % (21-51); MEAN CORPUSCULAR HGB CONC 32.7 g/dL (33.0-36.5); MEAN CORPUSCULAR VOLUME 94.8 FL (78-98); MEAN PLATELET VOLUME 9.9 FL (7.4-10.4); MONOCYTES # (AUTO) 0.9 X10'3 (0-0.9); MONOCYTES % (AUTO) 5.6 % (2-12); NEUTROPHILS % (AUTO) 88.7 % (42-75); PLATELET COUNT 187 X10'3 (140-440); RED BLOOD COUNT 3.28 X10'6 (4.70-6.10); RED CELL DISTRIBUTION WIDTH 14.4 % (11.5-14.5); WHITE BLOOD COUNT 15.8 X10'3 (4.5-11.0)
[2024-01-19] MEDS: aspirin 81mg tab.chew PO SCH (07:56)
[2024-01-19] MEDS: losartan 50mg tablet PO SCH (07:57)
[2024-01-19] MEDS: amLODIPine 5mg tablet PO SCH (07:59)
[2024-01-19] MEDS: folic acid 1mg tablet PO SCH (07:59)
[2024-01-19] MEDS: acetaminophen 325mg tablet PO PRN (08:02)
[2024-01-19 08:04] LABS: ALANINE AMINOTRANSFERASE 16 U/L (12-78); ALBUMIN 2.8 G/DL (3.4-5.0); ALBUMIN/GLOBULIN RATIO 0.7 (1.1-1.5); ALKALINE PHOSPHATASE 75 IU/L (46-116); ANION GAP 12 (8-16); ASPARTATE AMINO TRANSFERASE 26 U/L (10-37); BILIRUBIN,TOTAL 0.4 MG/DL (0.1-1.0); BLOOD UREA NITROGEN 53 MG/DL (7-18); BUN/CREATININE RATIO 6.4 (10.0-20.0); CALCIUM 8.4 MG/DL (8.5-10.1); CHLORIDE 95 MMOL/L (99-107); CHOL/HDL RATIO 2.1 (0.00-4.99); CHOLESTEROL 166 MG/DL (0-200); CREATININE 8.22 MG/DL (0.60-1.10); GLUCOSE 147 MG/DL (70-104); HDL CHOLESTEROL 78 MG/DL (35-60); LDL CHOLESTEROL 67 MG/DL (50-100); MAGNESIUM 2.2 MG/DL (1.5-2.4); POTASSIUM 4.3 MMOL/L (3.5-5.1); SODIUM 134 MMOL/L (135-145); TOTAL CARBON DIOXIDE 27.2 MMOL/L (24-32); TOTAL PROTEIN 6.9 G/DL (6.4-8.2); TRIGLYCERIDES 95 MG/DL (20-135); VANCOMYCIN,RANDOM 26.7 ug/mL (20.0-30.0); eCRCL 7 ML/MIN; eGFR 7 ML/MIN
[2024-01-19] MEDS: VANCOMYCIN LEVEL IV ONE (09:00)
[2024-01-19] MEDS: labetalol 100mg tablet PO SCH (11:35)
[2024-01-19] MEDS: diphenhydrAMINE 2%/zinc acetate cream TP SCH (13:00)
[2024-01-19] MEDS: EPOETIN ALFA-EPBX 20,000 UNIT/ML 1 ML MDV IV ONE (18:14)
[2024-01-19] MEDS: heparin 1,000 units/ml 10ml inj IV ONE (18:15)
[2024-01-19] MEDS: heparin 1,000unit/ml 10ml vial 10 ML IV ONE (18:16)
[2024-01-19] MEDS ORDERED: cefepime 2g/NS 100ml ADVANTAGE 100 ML IV SCH (20:00)
[2024-01-19] MEDS: cefepime 1GM in NS 100mL IVPB IV SCH (20:20)
[2024-01-20] VITALS (12 sets, daily range): BP systolic 153–201; BP diastolic 48–84; PULSE 57–66; RESP 11–20; TEMP 96.7–97.9; O2SAT 93–99
[2024-01-20] MEDS: hydrALAZINE 25 MG tablet PO ONE (01:57)
[2024-01-20] MEDS: albuterol 2.5 MG/3 ML nebule NEB PRN ×2 (05:45→08:23)
[2024-01-20] MEDS: VANCOMYCIN LEVEL IV SCH (06:00)
[2024-01-20] MEDS: hydrALAZINE 25 MG tablet PO SCH (07:15)
[2024-01-20 07:36] LABS: BASOPHILS % (AUTO) 0.2 % (0-1); EOSINOPHILS # (AUTO) 0.6 X10'3 (0-0.9); EOSINOPHILS % (AUTO) 5.4 % (0-6); HEMATOCRIT 30.8 % (42.0-52.0); LYMPHOCYTES % (AUTO) 8.7 % (21-51); MEAN CORPUSCULAR HEMOGLOBIN 31.3 PG (27.0-31.0); MEAN CORPUSCULAR HGB CONC 32.6 g/dL (33.0-36.5); MEAN CORPUSCULAR VOLUME 96.2 FL (78-98); MEAN PLATELET VOLUME 10.1 FL (7.4-10.4); MONOCYTES # (AUTO) 0.6 X10'3 (0-0.9); MONOCYTES % (AUTO) 5.5 % (2-12); NEUTROPHILS # (AUTO) 8.9 X10'3 (1.8-7.7); NEUTROPHILS % (AUTO) 80.2 % (42-75); PLATELET COUNT 178 X10'3 (140-440); RED CELL DISTRIBUTION WIDTH 14.5 % (11.5-14.5); WHITE BLOOD COUNT 11.1 X10'3 (4.5-11.0)
[2024-01-20 08:18] LABS: ALANINE AMINOTRANSFERASE 19 U/L (12-78); ALBUMIN 2.7 G/DL (3.4-5.0); ALBUMIN/GLOBULIN RATIO 0.6 (1.1-1.5); ALKALINE PHOSPHATASE 74 IU/L (46-116); ANION GAP 9 (8-16); ASPARTATE AMINO TRANSFERASE 20 U/L (10-37); BILIRUBIN,TOTAL 0.5 MG/DL (0.1-1.0); BLOOD UREA NITROGEN 27 MG/DL (7-18); BUN/CREATININE RATIO 4.5 (10.0-20.0); CALCIUM 8.3 MG/DL (8.5-10.1); CHLORIDE 99 MMOL/L (99-107); CREATININE 5.96 MG/DL (0.60-1.10); GLUCOSE 156 MG/DL (70-104); MAGNESIUM 2.2 MG/DL (1.5-2.4); POTASSIUM 3.9 MMOL/L (3.5-5.1); SODIUM 136 MMOL/L (135-145); TOTAL CARBON DIOXIDE 27.6 MMOL/L (24-32); TOTAL PROTEIN 6.9 G/DL (6.4-8.2); VANCOMYCIN,RANDOM 19.8 ug/mL (20.0-30.0); eCRCL 10 ML/MIN; eGFR 10 ML/MIN
[2024-01-21] VITALS (14 sets, daily range): BP systolic 148–187; BP diastolic 31–58; PULSE 54–65; RESP 16–21; TEMP 97.8–99.4; O2SAT 98–100
[2024-01-21] MEDS: diphenhydrAMINE 25mg capsule PO ONE (01:41)
[2024-01-21 06:34] LABS: BASOPHILS % (AUTO) 0.3 % (0-1); EOSINOPHILS # (AUTO) 0.6 X10'3 (0-0.9); EOSINOPHILS % (AUTO) 6.8 % (0-6); HEMATOCRIT 30.6 % (42.0-52.0); LYMPHOCYTES # (AUTO) 0.9 X10'3 (1.1-4.8); LYMPHOCYTES % (AUTO) 9.5 % (21-51); MEAN CORPUSCULAR HEMOGLOBIN 31.1 PG (27.0-31.0); MEAN CORPUSCULAR HGB CONC 32.6 g/dL (33.0-36.5); MEAN CORPUSCULAR VOLUME 95.3 FL (78-98); MEAN PLATELET VOLUME 10.4 FL (7.4-10.4); MONOCYTES # (AUTO) 0.6 X10'3 (0-0.9); MONOCYTES % (AUTO) 6.1 % (2-12); NEUTROPHILS # (AUTO) 7.3 X10'3 (1.8-7.7); NEUTROPHILS % (AUTO) 77.3 % (42-75); PLATELET COUNT 173 X10'3 (140-440); RED BLOOD COUNT 3.22 X10'6 (4.70-6.10); RED CELL DISTRIBUTION WIDTH 14.5 % (11.5-14.5); WHITE BLOOD COUNT 9.5 X10'3 (4.5-11.0)
[2024-01-21 06:56] LABS: ALANINE AMINOTRANSFERASE 21 U/L (12-78); ALBUMIN 2.7 G/DL (3.4-5.0); ALBUMIN/GLOBULIN RATIO 0.6 (1.1-1.5); ALKALINE PHOSPHATASE 118 IU/L (46-116); ANION GAP 11 (8-16); ASPARTATE AMINO TRANSFERASE 19 U/L (10-37); BILIRUBIN,TOTAL 0.6 MG/DL (0.1-1.0); BLOOD UREA NITROGEN 35 MG/DL (7-18); BUN/CREATININE RATIO 4.5 (10.0-20.0); CALCIUM 8.7 MG/DL (8.5-10.1); CHLORIDE 98 MMOL/L (99-107); CREATININE 7.76 MG/DL (0.60-1.10); GLUCOSE 151 MG/DL (70-104); MAGNESIUM 2.3 MG/DL (1.5-2.4); POTASSIUM 3.8 MMOL/L (3.5-5.1); SODIUM 136 MMOL/L (135-145); eCRCL 8 ML/MIN; eGFR 7 ML/MIN
[2024-01-21 07:16] LABS: HBSAG SCREEN Negative (Negative)
[2024-01-21 08:45] LABS: PLATELET ESTIMATE NORMAL
[2024-01-21 08:46] LABS: SCHISTOCYTES FEW
[2024-01-21] MEDS: VANCOMYCIN LEVEL IV ONE (09:00)
[2024-01-21] MEDS ORDERED: albumin (human) 25% 100ml IV 100 ML IV PRN (09:55)
[2024-01-21] MEDS ORDERED: LEVO-65 PO (10:55)
[2024-01-21] MEDS: EPOETIN ALFA-EPBX 20,000 UNIT/ML 1 ML MDV IV ONE (15:51)
[2024-01-21] MEDS: heparin 1,000unit/ml 10ml vial 10 ML IV ONE (15:54)
[2024-01-21] MEDS: heparin 1,000 units/ml 10ml inj IV ONE (15:54)
== END 2024-01-21 18:15 | disposition home or self-care (01) | DRG 193 ==
LOC: ER 22:39 → ED HOLD 01-18 00:26 → PCU 3S 01-18 03:27
PROVIDERS: ADMIT Internal Medicine Sleep Medicine; ATTEND Internal Medicine
PROC: 5A09357 Assistance with Respiratory Ventilation, Less than 24 Consecutive Hours, Continuous Positive Airway Pressure (ICD-10-PCS; 2024-01-18)
PROC: 5A1D70Z Performance of Urinary Filtration, Intermittent, Less than 6 Hours Per Day (ICD-10-PCS; principal; 2024-01-19)
PROC: 5A1D70Z Performance of Urinary Filtration, Intermittent, Less than 6 Hours Per Day (ICD-10-PCS; 2024-01-21)
DX: J15.9 Unspecified bacterial pneumonia (principal); J96.00 Acute respiratory failure, unspecified whether with hypoxia or hypercapnia; N18.6 End stage renal disease; J44.0 Chronic obstructive pulmonary disease with (acute) lower respiratory infection; I12.0 Hypertensive chronic kidney disease with stage 5 chronic kidney disease or end stage renal disease; J44.1 Chronic obstructive pulmonary disease with (acute) exacerbation; J12.9 Viral pneumonia, unspecified; I95.9 Hypotension, unspecified; G89.4 Chronic pain syndrome; E11.22 Type 2 diabetes mellitus with diabetic chronic kidney disease; Z99.2 Dependence on renal dialysis
CPT/HCPCS: 36415; 36600; 71045; 76700; 80048; 80053; 80061; 80076; 80202; 82803; 82948; 83605; 83735; 83880; 84132; 84145; 84484; 85008; 85018; 85025; 85379; 85651; 87040; 87081; 87340; 93005; 93306; 94640; 94660; 94760; 97110; 97116; 97162; 97530; 99285; A4615; A6250; A6449; E1594; G0257; G0378; J0692; J1200; J1644; J2270; J2470; J2919; J3370; J3490; J7030; J7040; Q0163; Q4081